=== PATIENT | female | born 1955 | race Caucasian/White ===

== ENCOUNTER 2017-08-21 21:16 | Inpatient (IN) | payer BC ==
[2017-08-21] MEDS ORDERED: Ondansetron INJ* 2 MG/ML VIAL IV ONE (22:30)
[2017-08-21] MEDS ORDERED: Morphine INJ* 4 MG/ML 1 ML CARPUJECT IV ONE (22:30)
--- NOTE | 2017-08-21 22:49 | ED ---
Lower Extremity - HPI Summary HPI Summary: 62F presents with left knee pain and right ankle pain. She states that she slipped and twisted her right ankle and felt a pop and that her left knee gave out. She states she then fell down a couple stairs. She did hit her head. She denies any LOC. She is not on blood thinners. She denies any chest pain or SOB. She denies any previous fracture to the area. she states pain is 8/10. She has not taken anything for pain. She denies any abdominal pain. She denies any hip pain. She denies any upper extremity pain. The pain is worst with movement. She works in [employer]. PMH of HTN, diabeties, and hyperlipidemia. - History of Current Complaint Chief Complaint: EDExtremityLower Stated Complaint: FALL Time Seen by Provider: 08/21/17 21:56 Pain Intensity: 9 - Allergies/Home Medications Allergies/Adverse Reactions: Allergies Allergy/AdvReac Type Severity Reaction Status Date / Time No Known Allergies Allergy Verified 01/11/13 19:26 PMH/Surg Hx/FS Hx/Imm Hx Endocrine/Hematology History: Reports: Hx Diabetes - type 2 metformin Denies: Hx Thyroid Disease Cardiovascular History: Reports: Hx Hypertension - lisinopril Respiratory History: Denies: Hx Asthma, Hx Chronic Obstructive Pulmonary Disease (COPD) GI History: Denies: Hx Ulcer Musculoskeletal History: Denies: Hx Osteoporosis - Cancer History Hx Chemotherapy: No Hx Radiation Therapy: No - Surgical History Surgery Procedure, Year, and Place: csections x2, carpal tunnel x2 Infectious Disease History: No Infectious Disease History: Denies: Hx Hepatitis, Hx Human Immunodeficiency Virus (HIV), Traveled Outside the in Last 30 Days - Social History Alcohol Use: None Substance Use Type: Reports: None Smoking Status (MU): Never Smoked Tobacco Review of Systems Negative: Fever Negative: Chest Pain Negative: Shortness Of Breath Positive: Myalgia - left knee and right ankle All Other Systems Reviewed And Are Negative: Yes Physical Exam Triage Information Reviewed: Yes Vital Signs On Initial Exam: Initial Vitals Temp Pulse Resp BP Pulse Ox 97.9 F 92 20 157/64 100 08/21/17 21:22 08/21/17 21:22 08/21/17 21:22 08/21/17 21:22 08/21/17 21:22 Vital Signs Reviewed: Yes Appearance: Positive: Well-Appearing, Pain Distress Skin: Positive: Warm, Dry Head/Face: Positive: Normal Head/Face Inspection Eyes: Positive: Normal, EOMI, MARCY, Conjunctiva Clear ENT: Positive: Normal ENT inspection, Pharynx normal, TMs normal Respiratory/Lung Sounds: Positive: Clear to Auscultation, Breath Sounds Present Cardiovascular: Positive: Normal, RRR Abdomen Description: Positive: Nontender, Soft Bowel Sounds: Positive: Present Musculoskeletal: Positive: Strength/ROM Intact - right ankle with pain, Limited @ - left leg, Other - good pulses, capillary refill<2 secs, sensation grossly intact, tenderness over left femur distal and lateral malleolus of right ankle Neurological: Positive: Sensory/Motor Intact, Alert, Oriented to Person Place, Time, CN Intact II-III Psychiatric: Positive: Normal - [place] Coma Scale Best Eye Response: 4 - Spontaneous Best Motor Response: 6 - Obeys Commands Best Verbal Response: 5 - Oriented Coma Scale Total: 15 Procedures - Splinting Location: right ankle Hand-Made Type: orthoglass Splint: sugar-tong Pre-Proc Neuro Vasc Exam: normal Post-Proc Neuro Vasc Exam: normal Diagnostics - Vital Signs Vital Signs Temp Pulse Resp BP Pulse Ox 08/21/17 21:30 95 181/74 99 08/21/17 21:25 90 100 08/21/17 21:23 157/64 08/21/17 21:22 97.9 F 92 20 157/64 100 - Laboratory Result Diagrams: 08/21/17 22:35 08/21/17 22:35 Lab Statement: Any lab studies that have been ordered have been reviewed, and results considered in the medical decision making process. - Radiology left leg Xray Interpretation: Positive (See Comments) - fracture of left distal femur Radiology Interpretation Completed By: ED Physician right ankle Xray Interpretation: Positive (See Comments) - right fibula fracture Radiology Interpretation Completed By: ED Physician chest Xray Interpretation: No Acute Changes Radiology Interpretation Completed By: ED Physician - EKG No standard instances Cardiac Rate: NL EKG Rhythm: Sinus Rhythm EKG Interpretation: sinus rhythm Lower Extremity Course/Dx - Course Course Of Treatment: 62F presents with left knee pain and right ankle pain. She states that she slipped and twisted her right ankle and felt a pop and that her left knee gave out. She states she then fell down a couple stairs. She did hit her head. She denies any LOC. She is not on blood thinners. She denies any chest pain or SOB. She denies any previous fracture to the area. she states pain is 8/10. She has not taken anything for pain. She denies any abdominal pain. She denies any hip pain. She denies any upper extremity pain. The pain is worst with movement. She works in [employer]. PMH of HTN, diabeties, and hyperlipidemia. neurovascular intact, tenderness over left femur and right lateral aspect of ankle. xray read by me as spiral fracture of left femur and right fibula fracture. discussed with dr shah and states has if ortho can admit. dr washington states that would prefer hospitalist to admit. will place in knee immbolizer and split right ankle. placed right ankle in sugar tong. dr washington admitted patient. - Diagnoses Differential Diagnosis/HQI/PQRI: Positive: Fracture (Closed), Sprain, Strain Provider Diagnoses: Fall, Head injury, Femur fracture, left, Right fibular fracture Discharge - Discharge Plan Condition: Stable Disposition: ADMITTED TO [facility]
[2017-08-21 22:54] LABS: ABS Basophils 0.1 10^3/ul (0-0.2); ABS Eosinophils 0.1 10^3/ul (0-0.6); ABS Lymphocytes 2.2 10^3/ul (1.0-4.8); ABS Neutrophils 11.3 10^3/ul (1.5-7.7); ABS Nucleated RBC 0 10^3/ul; Eosinophil % 0.9 % (0-6); Hematocrit 37 % (35-47); Hemoglobin 12.3 g/dl (12.0-16.0); Lymphocyte % 14.9 % (25-47); Mean Corpuscular HGB Conc 33 g/dl (31-36); Mean Corpuscular Hemoglobin 29 pg (27-31); Mean Corpuscular Volume 88 fL (80-97); Mean Platelet Volume 9 um3 (7.4-10.4); Nucleated Red Blood Cells % 0; Platelet Count 254 10^3/ul (150-450); Red Blood Count 4.21 10^6/ul (4.0-5.4); Red Cell Distribution Width 13 % (10.5-15); White Blood Count 14.7 10^3/ul (3.5-10.8)
[2017-08-21 23:11] LABS: EGFR Non-African American 63.7 (>60)
[2017-08-21 23:21] LABS: INR 0.85 (0.77-1.02)
[2017-08-22] MEDS ORDERED: Morphine INJ* 4 MG/ML 1 ML CARPUJECT IV ONE (00:33)
[2017-08-22 01:33] LABS: Urine Appearance Clear; Urine Blood 1+ (Negative); Urine Color Straw; Urine Ketones Negative (Negative); Urine Protein 1+(30 mg/dL) (Negative); Urine Specific Gravity 1.009 (1.010-1.030); Urine Urobilinogen Negative (Negative)
[2017-08-22] MEDS: NS 0.9% 1000 ML* 1,000 ML IV SCH (02:54)
[2017-08-22] MEDS: Morphine INJ* 2 MG/ML 1 ML SYRINGE (TWO MG - NEW SYRINGE VERSION) IV PRN ×8 (03:01→22:32)
[2017-08-22] MEDS ORDERED: Cyclobenzaprine TAB* 10 MG PO PRN (06:42)
--- NOTE | 2017-08-22 07:10 | RAD ---
INDICATION: Right ankle injury. TECHNIQUE: 3 views of the right ankle were obtained. FINDINGS: There is anterolateral soft tissue swelling. There is a transverse nondisplaced fracture through the distal tip of the fibula. No other fractures are seen. Joint spaces appear maintained. IMPRESSION: NONDISPLACED FRACTURE OF THE DISTAL FIBULA.
--- NOTE | 2017-08-22 07:13 | RAD ---
INDICATION: Left knee trauma. TECHNIQUE: 4 views of the left knee were obtained. FINDINGS: There is an oblique fracture of the distal diaphysis of the femur which is partially visualized on the study. The distal fragment is displaced one half shaft diameter posterior relative the proximal fragment and the fracture fragments are overriding. No additional fracture or joint effusion is seen. IMPRESSION: OBLIQUE DISPLACED FRACTURE OF THE DISTAL FEMUR.
--- NOTE | 2017-08-22 07:15 | RAD ---
INDICATION: Left lower leg injury. TECHNIQUE: 2 views of the left lower leg were obtained. FINDINGS: The tip of a distal fracture of the femur is visualized. No additional fracture is seen. IMPRESSION: FRACTURE OF THE DISTAL FEMUR, NO ADDITIONAL FRACTURE IS SEEN.
--- NOTE | 2017-08-22 07:17 | RAD ---
INDICATION: Right lower leg injury. TECHNIQUE: 2 views of the right lower leg were obtained. FINDINGS: Again note is made of a nondisplaced fracture of the distal tip of the fibula. No additional fracture is seen. IMPRESSION: NONDISPLACED FRACTURE OF THE DISTAL TIP OF THE FIBULA, NO ADDITIONAL FRACTURE IS SEEN.
--- NOTE | 2017-08-22 07:19 | RAD ---
INDICATION: Left femur injury. TECHNIQUE: 2 views of the left femur were obtained. FINDINGS: There is an oblique fracture of the distal diaphysis of the femur. The fracture fragments are overriding. The distal fragment is displaced one half shaft diameter posterior relative the proximal fragment and there is medial angulation of the distal fragment relative the proximal fragment. IMPRESSION: OBLIQUE, DISPLACED AND ANGULATED FRACTURE OF THE DISTAL FEMUR.
[2017-08-22] MEDS ORDERED: Polyethylene Glycol 3350* 17 GM PACKET PO PRN (07:27)
[2017-08-22] MEDS ORDERED: oxyCODONE/Acetamin 5/325 MG* TAB PO PRN (07:27)
[2017-08-22] MEDS ORDERED: Bisacodyl SUPP* 10 MG SUPP PR PRN (07:27)
[2017-08-22] MEDS ORDERED: diPHENhydraMINE IV* 50 MG/ML 1 ml VIAL (BENADRYL) IV PRN (07:27)
[2017-08-22] MEDS ORDERED: Magnesium Hydroxide LIQ* 30 ML UDC PO PRN (07:27)
[2017-08-22] MEDS ORDERED: Ondansetron TAB* 4 MG PO PRN (07:27)
--- NOTE | 2017-08-22 07:33 | RAD ---
INDICATION: Head injury. COMPARISON: Comparison is made with a prior MRI of the brain from November 10, 2011. TECHNIQUE: Contiguous axial sections of the brain were obtained from the skull base to the vertex without contrast. FINDINGS: The ventricles, cisterns and sulci are within normal limits. No significant focal abnormality or mass effect is seen. There is no evidence for hemorrhage. There is focal soft tissue swelling and hematoma in the scalp adjacent to the left occipital bone measuring 4.4 x 0.8 cm in size. No fracture is seen. There is mucosal thickening or mucous retention cyst within the inferior portion of the left maxillary sinus. The paranasal sinuses and mastoid air cells otherwise appear clear. IMPRESSION: NO EVIDENCE FOR ACUTE INTRACRANIAL ABNORMALITY.
--- NOTE | 2017-08-22 07:40 | RAD ---
INDICATION: Femur fracture. COMPARISON: Comparison is made with prior chest x-ray study from October 17, 2011. TECHNIQUE: A portable view of the chest was obtained. FINDINGS: Cardiac and mediastinal contours appear to be within normal limits. The lungs are clear. No pleural effusion is seen. IMPRESSION: NO EVIDENCE FOR ACUTE DISEASE.
[2017-08-22 08:16] LABS: ABS Basophils 0.1 10^3/ul (0-0.2); ABS Eosinophils 0.1 10^3/ul (0-0.6); ABS Lymphocytes 3.1 10^3/ul (1.0-4.8); ABS Monocytes 0.7 10^3/ul (0-0.8); ABS Neutrophils 6.1 10^3/ul (1.5-7.7); ABS Nucleated RBC 0 10^3/ul; Eosinophil % 0.7 % (0-6); Hematocrit 33 % (35-47); Hemoglobin 11.3 g/dl (12.0-16.0); Mean Corpuscular HGB Conc 34 g/dl (31-36); Mean Corpuscular Hemoglobin 30 pg (27-31); Mean Corpuscular Volume 87 fL (80-97); Mean Platelet Volume 9 um3 (7.4-10.4); Nucleated Red Blood Cells % 0; Platelet Count 241 10^3/ul (150-450); Red Cell Distribution Width 13 % (10.5-15); White Blood Count 10.1 10^3/ul (3.5-10.8)
[2017-08-22] MEDS ORDERED: Dextrose 50% Syringe 50 ML* 25 GM/50 ML SYRINGE IV PUSH PRN (08:20)
--- NOTE | 2017-08-22 08:21 | CONSULT ---
Subjective Date of Service: 08/22/17 Interval History: Patient states that her R ankle "gave way" and she fell down a flight of stairs. She could not get up due to pain and the ambulance brought her to the ED. NO LOC, lightheadedness, palpitations, SOB, or chest pain. No prior falls. Family History: Findings - Father had IN. Also fam hx of DM, ca pancreas Social History: Findings - Quit smoking about 20 yrs ago. No alcohol abuse. 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 Lives alone, single. Daughter Sandra is her SDM. Past Medical History: Findings - [facility], x 2. 3 children. Review of Systems - Measurements Intake and Output: Intake and Output Last 24 Hours 08/20/17 08/21/17 08/22/17 08/23/17 06:59 06:59 06:59 06:59 Intake Total 0 Output Total 450 Balance -450 Weight 190 lb Intake: Oral 0 Output: More[place] 450 - Review of Systems Constitutional Symptoms: Negative: Weight Gain, Weight Loss, Weakness, Fatigue, Fever, Night Sweats, Unexplained Falls, Other Dermatology: Positive: Normal HEENT: Positive: Normal Eyes: Positive: Normal Thyroid: Positive: Normal Pulmonary: Positive: Normal Cardiology: Positive: Normal Gastroenterology: Positive: Normal Genital - Urinary: Positive: Normal Musculoskeletal: Negative: Joint Pain, Joint Stiffness, Arthritis, Osteoporosis, Low Back Pain , Sciatica, Joint Deformities, Kyphoscoliosis, Other Endocrinology: Positive: Obesity, Diabetes Mellitus Hematologic/Lymphatic: Negative: Anemia, Easy Brusing, Hx Leukemia, Hx Lymphoma, Use of Anticoagulant, Use of Antiplatelet Drugs, Other Neurology: Positive: Normal Psychiatry: Positive: Normal Allergic/Immunologic: Negative: Hx Anaphylaxis, Hx Angioedema, Hx Environmental, Hx Seasonal, Athsma, Hx HIV, Immunocompromise, Swollen Glands LymphNodes, Other Objective Active Medications: Bisacodyl (Dulcolax Supp*) 10 mg WA DAILY PRN PRN Reason: constipation Cyclobenzaprine HCl (Flexeril Tab*) 10 mg PO TID PRN PRN Reason: SPASMS - MUSCLE Diphenhydramine HCl (Benadryl Iv*) 12.5 mg IV Q6H PRN PRN Reason: PRURITIS Docusate Sodium (Colace Cap*) 100 mg PO BID JOSEPH Gabapentin (Neurontin Cap(*)) 600 mg PO BID JOSEPH Sodium Chloride (Ns 0.9% 1000 Ml*) 1,000 mls @ 50 mls/hr IV PER RATE JOSEPH Last Admin: 08/22/17 02:54 Dose: 50 mls/hr Lactated Ringer's (Lactated Ringers 1000 Ml Bag*) 1,000 mls @ 100 mls/hr IV PER RATE JOSEPH Lactulose (Lactulose*) 30 ml PO Q6H PRN PRN Reason: constipation Lisinopril (Prinivil Tab*) 20 mg PO DAILY [facility] Magnesium Hydroxide (Milk Of Magnesia Liq*) 30 ml PO BID JOSEPH Magnesium Hydroxide (Milk Of Magnesia Liq*) 30 ml PO Q6H PRN PRN Reason: constipation Metformin HCl (Glucophage*) 500 mg PO DAILY [facility] Morphine Sulfate (Morphine Inj (Syringe)*) 2 mg IV Q2H PRN PRN Reason: PAIN Last Admin: 08/22/17 06:27 Dose: 2 mg Ondansetron HCl (Zofran Tab*) 4 mg PO Q6H PRN PRN Reason: NAUSEA Oxycodone HCl (Roxycodone Tab*) 10 mg PO Q4H PRN PRN Reason: SEVERE PAIN Oxycodone/Acetaminophen (Percocet 5/325 Tab*) 2 tab PO Q4H PRN PRN Reason: PAIN Oxycodone/Acetaminophen (Percocet 5/325 Tab*) 2 tab PO Q4H PRN PRN Reason: PAIN Polyethylene Glycol/Electrolytes (Miralax*) 17 gm PO DAILY PRN PRN Reason: Constipation Vital Signs - 8 hr 08/22/17 08/22/17 08/22/17 02:36 03:01 03:10 Temperature 98.3 F Pulse Rate 89 Respiratory 16 16 16 Rate Blood Pressure 160/61 (mmHg) O2 Sat by Pulse 96 Oximetry 08/22/17 08/22/17 04:00 06:27 Temperature Pulse Rate Respiratory 16 16 Rate Blood Pressure (mmHg) O2 Sat by Pulse Oximetry Oxygen Devices in Use Now: None Appearance: Alert, supine in bed. In good spirits. Looks comfortable 90 minutes after IV morphine Eyes: No Scleral Icterus Neck: NL Appearance and Movements; NL JVP, No Thyroid Enlargement, Masses Respiratory: Symmetrical Chest Expansion and Respiratory Effort, Clear to Auscultation, Clear to Percussion Cardiovascular: No Edema, - - 2-3/6 systolic murmur RSB Extremities: No Edema, No Clubbing, Cyanosis, - Skin: No Rash or Ulcers, No Nodules or Sclerosis, - Neurological: Alert and Oriented x 3, NL Sensation Result Diagrams: 08/22/17 08:04 08/22/17 08:04 Assessment/Plan - Billing Plan By Medical Problem: 1. DM: Lispro by SS 2. Elevated lactate: could be related to metformin, or tourniquet on too long. Repeat pending. 3. Leukocytosis: likely due to pain and stress of emergency events. Repeat pending. 4. Heart murmur: Pt states she has had this "all my life". Echo ordered. 5. Hypertension: continue lisinopril. VTE PPX: per Dr. Wolf
[2017-08-22 08:25] LABS: EGFR Non-African American 92.7 (>60)
[2017-08-22] MEDS: Magnesium Hydroxide LIQ* 30 ML UDC PO SCH ×3 (09:17→22:35)
[2017-08-22] MEDS: metFORMIN* 500 MG TAB PO SCH ×2 (09:17→10:29)
[2017-08-22] MEDS: Docusate CAP* 100 MG PO SCH ×3 (09:17→22:34)
[2017-08-22] MEDS: Gabapentin CAP(*) 300 MG PO SCH ×2 (09:17→22:34)
--- NOTE | 2017-08-22 09:31 | RAD ---
Indication: Preop fracture evaluation CT of the left femur was obtained in the axial plane. Sagittal and coronal reconstructed images were obtained. There is a oblique spiral fracture of the distal diaphysis of the femur. There is lateral angulation of the fracture apex. Old slight overriding of the fracture fragment is noted. There is a hematoma surrounding the quadriceps muscle. The proximal femur shows no evidence of fracture. Minimal comminution is noted. There is slight posterior displacement of the distal fracture fragment approximately one half shafts width. There is overriding of the fracture fragments. IMPRESSION: Minimally comminuted fracture of the distal diaphysis of the femur with lateral angulation. There is posterior displacement of the distal fracture fragment approximately one half shafts width.
--- NOTE | 2017-08-22 10:06 | HP ---
ADMISSION HISTORY AND PHYSICAL: DATE OF ADMISSION: 08/22/17 ATTENDING SURGEON: Aida Wolf MD CONSULT: Hospitalist group for medical co-management and preoperative optimization. CHIEF COMPLAINT: Left thigh pain, right ankle pain. HISTORY OF PRESENT ILLNESS: Ms. Laws is a 62-year-old female who fell going down her daughter's apartment steps late in the evening on 08/21/17. She turned her right ankle and felt a snap in her left thigh. She had immediate 10/10 pain in the left thigh and right ankle and was unable to stand or bear weight. She was brought to [facility] by ambulance. She denied any loss of consciousness or head trauma. She was found to have a right lateral malleolus fracture, which was an avulsion fracture distally as well as a displaced comminuted closed left distal femoral fracture. She has significant past medical history of diabetes, hypertension, hypercholesterolemia, and morbid obesity. I am admitting with the intention of fixing the femur fracture operatively. She will need appropriate preoperative medical clearance. PAST MEDICAL HISTORY: 1. Hypertension. 2. Diabetes. 3. Hypercholesterolemia. 4. Morbid obesity. PAST SURGICAL HISTORY: 1. Bilateral carpal tunnel release. 2. x2. CURRENT MEDICATIONS: 1. Lisinopril, unspecified dose. 2. Metformin, unspecified dose. We will obtain the home medication dosages. ALLERGIES: No known drug allergies. No known latex allergy. FAMILY HISTORY: Maternal aunt, paternal cancer. SOCIAL HISTORY: The patient lives alone. She has a daughter in the area. She is normally an independent ambulator and works at [employer]. No tobacco, alcohol, or recreational drugs. REVIEW OF SYSTEMS: Fourteen systems were reviewed with the patient today. Positive for recent fall, left thigh pain, right ankle pain. Negative for fevers, chills, chest pain, shortness of breath, nausea, vomiting, headache or dizziness. Otherwise the patient reports review of systems is negative, or not relevant. PHYSICAL EXAMINATION GENERAL: The patient is an overweight female, in no apparent distress, alert and oriented x3, pleasant mood and appropriate affect. Gait is not assessed. VITAL SIGNS: Temperature 98.3, pulse of 89, blood pressure 160/61, respiratory rate 16. HEENT: Atraumatic, normocephalic. Pupils are equal and reactive to light. Mucous membranes moist. NECK: Trachea midline. Neck supple. No palpable lymph nodes. LUNGS: Clear to auscultation in all lung owusu. No wheezes, rubs, or rhonchi. HEART: S1 and S2. No obvious irregular rhythm or murmur. ABDOMEN: Rounded, soft, nontender, and nondistended. Bowel sounds in 4 quadrants. BILATERAL UPPER EXTREMITIES: The patient's skin is intact. No abrasions or open wounds. 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 Full sensation to light touch in all nerve distributions and 2+ palpable radial pulses. Right lower extremity has a splint on the right lower extremity. She can flex and extend her toes with intact sensation to light touch and less than 3 capillary refill. Left lower extremity, her thigh is swollen, but compressible. She is in a knee immobilizer. She has a minimal superficial scrape over the anterior patella. She demonstrates dorsiflexion and plantar flexion. 2+ palpable DP pulse. Full sensation to light touch in all nerve distributions. LABORATORY DATA: Laboratory values show white blood cells elevated at 14.7, hematocrit 37, platelets 254. Coags; INR 0.85. Chemistries: Sodium 135, potassium 4.1, chloride 101, glucose 316 and lactic acid 2.1. Urine shows a mild amount of blood and squamous cells, but no leukocyte esterase or bacteria. There is some glucose in the urine as well. Multiple views of the ankle are reviewed which show a displaced avulsion fracture of the lateral malleolus on the right. X-rays of the knee on the left as well as left femur x-ray show a distal femoral fracture which is long, oblique and comminuted. Brain CT is negative for any abnormality. Chest x-ray has no formal report yet. ASSESSMENT AND PLAN: Ms. Laws is a 62-year-old female status post mechanical fall with a displaced comminuted closed left distal femoral fracture and closed right lateral malleolus avulsion fracture. For now she will be on bed rest and n.p.o. She has slightly elevated lactic acid and leukocytosis at this point. I will order blood cultures, although the patient denies being recently ill. She was given IV fluids at this time. She has some p.r.n. analgesia available. We will order insulin sliding scale for now. We will be awaiting hospitalist consult for medical optimization and ask them to address both her uncontrolled diabetes at this point and uncontrolled hypertension. We are awaiting clearance for this patient. The patient and I discussed operative and nonoperative treatment options for the left femur. She would like to proceed with surgery. Risks and benefits of the surgery were discussed and she would like to proceed. We will plan an open reduction internal fixation of the left distal femur fracture with a plate and screws. For now, the patient will be n.p.o. We will plan operative fixation of the fracture this afternoon if she is cleared for surgery by medical team and if we have the appropriate hardware in time. Otherwise, we will plan for 08/23/17. [id number]/CPS #: [id number] MTDD
[2017-08-22] MEDS: Lisinopril TAB* 10 MG PO SCH (10:29)
[2017-08-22] MEDS: Insulin LISPRO* 1 UNITS UNIT SUBCUT SCH ×3 (13:37→22:34)
[2017-08-22] MEDS ORDERED: Scopolamine 1.5 mg* PATCH TRANSDERM PRN (15:48)
--- NOTE | 2017-08-22 15:59 | ECHO ---
Patient: TORY JAIN [facility] Rec#: [id number] : 1955 Date: 08/22/2017 Age: 62y Height: 152.4 cm / 60.0 in Weight: 86.18 kg / 189.9 lbs Sex: F BSA: 1.83 Room#: [facility] Admit Date#: 08/22/2017 Type: Inpatient Referring: Calos Leo MD Reading: Herminio Rich MD [employer] Worker: Kasia Jara RDCS CC: Benjy Norman MD Transthoracic Echocardiogram Indication: Heart murmur, pre-op BP: 160/61 HR: 77 Rhythm: NSR Findings History: Former smoker, HTN, HLD, DM. Technical Comments: The study quality is fair. The study was technically limited due to the patient's inability to lay in the left lateral decubitus position. Completed at 1330. Left Ventricle: The left ventricular chamber size is normal. Moderate concentric left ventricular hypertrophy is observed. Global left ventricular wall motion and contractility are within normal limits. There is normal left ventricular systolic function. The estimated ejection fraction is 60-65%. There is no consistent Doppler evidence of clinically significant diastolic dysfunction. Left Atrium: The left atrium is moderately dilated. Right Ventricle: Moderator Band present. The right ventricular cavity size is normal. The right ventricular global systolic function is normal. Right Atrium: The right atrium is mildly dilated. There is evidence of an atrial septal aneurysm. Aortic Valve: The aortic valve structure is not well visualized. Mild aortic leaflet calcification is visualized. Systolic excursion of the aortic valve cusps is reduced. There is no evidence of aortic regurgitation. There is mild aortic stenosis. The mean gradient of the aortic valve is 11.1 mmHg. The peak instantaneous gradient of the aortic valve is 27.48 mmHg. The aortic valve area, by peak velocities, is calculated at 1.6 cm2. The aortic valve area, by VTI's, is calculated at 1.85 cm2. Mitral Valve: The mitral valve leaflets are mildly thickened. There is a trace of mitral regurgitation. There is no evidence of mitral stenosis. Tricuspid Valve: The tricuspid valve leaflets are normal. There is trace tricuspid regurgitation. The right ventricular systolic pressure is estimated at 19 mmHg. No pulmonary hypertension is noted. There is no tricuspid stenosis. Pulmonic Valve: The pulmonic valve appears normal. There is no evidence of pulmonic regurgitation. There is no pulmonic stenosis. Pericardium: There is no significant pericardial effusion. A pericardial fat pad is visualized. Aorta: There is no dilatation of the ascending aorta. There is no dilatation of the aortic arch. The aortic root is normal in size. Pulmonary Artery: The main pulmonary artery is not well visualized. Venous: The inferior vena cava appears normal in size. There is a greater than 50% respiratory change in the inferior vena cava dimension. Summary: There was not any prior study for comparison. Conclusions Global left ventricular wall motion and contractility are within normal limits. There is normal left ventricular systolic function. The estimated ejection fraction is 60-65%. The right ventricular global systolic function is normal. Systolic excursion of the aortic valve cusps is reduced. There is mild aortic stenosis. The mean gradient of the aortic valve is 11.1 mmHg. There is a trace of mitral regurgitation. There is trace tricuspid regurgitation. No pulmonary hypertension is noted. There is no significant pericardial effusion. Measurements Name Value Normal Range RVIDd (AP) 2D 2.9 cm (0.9 - 2.6) RVDdMajor (2D) 3.6 cm (2.2 - 4.4) RAd ISD 4CH 5.3 cm (3.4 - 4.9) RA (A4C)W 3.4 cm (2.9 - 4.6) IVSd (2D) 1.3 cm (0.6 - 1) LVPWd (2D) 1.3 cm (0.6 - 1) LVIDd (2D) 4 cm (3.6 - 5.4) LVIDs (2D) 2.2 cm - LV FS (2D) 45 % (25 - 45) Aortic Annulus 2 cm (1.4 - 2.6) Ao root diameter (2D) 2.9 cm (2.1 - 3.5) Ascending Ao 2.9 cm (2.1 - 3.4) Aortic arch 2 cm (1.8 - 3.4) LA dimension (AP) 2D 3.7 cm (2.3 - 3.8) LAd ISD 4CH 6.2 cm (2.9 - 5.3) LA ISD 4CH W 4.6 cm (2.5 - 4.5) Name Value Normal Range LA ESV SP 4CH (A/L) 67 ml - LA ESV SP 2CH (A/L) 76 ml - LA ESV BP (A/L) 79 ml - LA ESV BP (A/L) index 43 ml/m2 - LA ESV SP 4CH (MOD) 62 ml - LA ESV SP 2CH (MOD) 71 ml - Name Value Normal Range MV E-wave Vmax 1.18 m/sec - MV deceleration time 189.06 msec - MV A-wave Vmax 1.01 m/sec - MV E:A ratio 1.16 ratio - LV septal e' Vmax 0.08 m/sec - LV lateral e' Vmax 0.1 m/sec - LV E:e' septal ratio 14.75 ratio - LV E:e' lateral ratio 11.8 ratio - Name Value Normal Range AV Vmax 2.6 m/sec - AV VTI 49.9 cm - AV peak gradient 27.48 mmHg - AV mean gradient 11.1 mmHg - LVOT diameter 2 cm - LVOT Vmax 1.33 m/sec - LVOT VTI 29.4 cm - LVOT peak gradient 7.05 mmHg - LVOT mean gradient 4.05 mmHg - DOI (VTI) 0.59 ratio - YOKO (continuity Vmax) 1.6 cm2 - YOKO (continuity VTI) 1.85 cm2 - MCKENNA Vmax 1.11 m/sec - Name Value Normal Range TR Vmax 2 m/sec - TR peak gradient 16 mmHg - RAP 3 mmHg - RVSP 19 mmHg - IVC diameter 1.5 cm - Name Value Normal Range PV Vmax 0.97 m/sec - PV peak gradient 3.76 mmHg -
[2017-08-22] MEDS: Ondansetron INJ* 2 MG/ML VIAL IV SCH ×2 (16:04→21:22)
[2017-08-23] MEDS: Ondansetron INJ* 2 MG/ML VIAL IV SCH ×5 (00:44→20:09)
[2017-08-23] MEDS: NS 0.9% 1000 ML* 1,000 ML IV SCH (01:58)
[2017-08-23] MEDS: Morphine INJ* 2 MG/ML 1 ML SYRINGE (TWO MG - NEW SYRINGE VERSION) IV PRN ×2 (04:21→09:22)
[2017-08-23 06:45] LABS: Hematocrit 31 % (35-47); Hemoglobin 10.5 g/dl (12.0-16.0)
[2017-08-23 07:01] LABS: EGFR Non-African American 101.6 (>60)
--- NOTE | 2017-08-23 07:45 | PN ---
Progress Note - Progress Note Date of Service: 08/23/17 SOAP: Subjective: Pt. is alert and eager for surgery. Objective: RLE - splint, toes +flex/ext LLE - thigh swollen but soft, calf soft, 2+dp pulse, +df/pf Vital Signs: Temp Pulse Resp BP Pulse Ox 98.1 F 70 18 146/54 99 08/23/17 04:14 08/23/17 04:14 08/23/17 04:21 08/23/17 04:14 08/23/17 04:14 Laboratory Results - last 24 hr 08/22/17 08/22/17 08/22/17 08:04 08:04 08:04 WBC 10.1 RBC 3.80 L Hgb 11.3 L Hct 33 L MCV 87 MCH 30 MCHC 34 RDW 13 Plt Count 241 MPV 9 Neut % (Auto) 60.3 Lymph % (Auto) 31.0 [place] % (Auto) 7.3 Eos % (Auto) 0.7 Baso % (Auto) 0.7 Absolute Neuts (auto) 6.1 Absolute Lymphs (auto) 3.1 Absolute Monos (auto) 0.7 Absolute Eos (auto) 0.1 Absolute Basos (auto) 0.1 Absolute Nucleated RBC 0 Nucleated RBC % 0 Sodium 135 Potassium 4.0 Chloride 103 Carbon Dioxide 25 Anion Gap 7 BUN 14 Creatinine 0.65 Est GFR ( Amer) 119.2 Est GFR (Non-Af Amer) 92.7 BUN/Creatinine Ratio 21.5 H Glucose 247 H POC Glucose (mg/dL) Lactic Acid 1.7 Calcium 8.7 08/22/17 08/22/17 08/22/17 13:30 17:03 22:24 WBC RBC Hgb Hct MCV MCH MCHC RDW Plt Count MPV Neut % (Auto) Lymph % (Auto) [place] % (Auto) Eos % (Auto) Baso % (Auto) Absolute Neuts (auto) Absolute Lymphs (auto) Absolute Monos (auto) Absolute Eos (auto) Absolute Basos (auto) Absolute Nucleated RBC Nucleated RBC % Sodium Potassium Chloride Carbon Dioxide Anion Gap BUN Creatinine Est GFR ( Amer) Est GFR (Non-Af Amer) BUN/Creatinine Ratio Glucose POC Glucose (mg/dL) 315 H 226 H 229 H Lactic Acid Calcium 08/23/17 08/23/17 06:35 06:35 WBC RBC Hgb 10.5 L Hct 31 L MCV MCH MCHC RDW Plt Count MPV Neut % (Auto) Lymph % (Auto) [place] % (Auto) Eos % (Auto) Baso % (Auto) Absolute Neuts (auto) Absolute Lymphs (auto) Absolute Monos (auto) Absolute Eos (auto) Absolute Basos (auto) Absolute Nucleated RBC Nucleated RBC % Sodium 137 Potassium 3.8 Chloride 105 Carbon Dioxide 27 Anion Gap 5 BUN 10 Creatinine 0.60 Est GFR ( Amer) 130.7 Est GFR (Non-Af Amer) 101.6 BUN/Creatinine Ratio 16.7 Glucose 153 H POC Glucose (mg/dL) Lactic Acid Calcium 8.6 Assessment: 62 yo F s/p fall with R lat mal avulsion fx and L femur fx Plan: npo for orif L femur today bedrest prn analgesia medically optimized
[2017-08-23] MEDS ORDERED: NS 0.9% 1000 ML* 1,000 ML IV SCH (07:47)
[2017-08-23] MEDS: Magnesium Hydroxide LIQ* 30 ML UDC PO SCH ×2 (10:15→22:15)
[2017-08-23] MEDS: Docusate CAP* 100 MG PO SCH ×2 (10:15→22:12)
[2017-08-23] MEDS: Gabapentin CAP(*) 300 MG PO SCH ×2 (10:15→22:15)
[2017-08-23] MEDS: metFORMIN* 500 MG TAB PO SCH (10:15)
[2017-08-23] MEDS: Lisinopril TAB* 10 MG PO SCH (10:15)
[2017-08-23] MEDS: Insulin LISPRO* 1 UNITS UNIT SUBCUT SCH ×4 (10:41→21:00)
--- NOTE | 2017-08-23 11:38 | PN ---
Subjective Date of Service: 08/23/17 Interval History: Pain control adequate. No chest pain, cough, SOB. Family History: Findings - Father had ND. Also fam hx of DM, ca pancreas Social History: Findings - Quit smoking about 20 yrs ago. No alcohol abuse. 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 Lives alone, single. Daughter Sandra is her SDM. Past Medical History: Findings - [facility], x 2. 3 children. Objective Active Medications: Bisacodyl (Dulcolax Supp*) 10 mg KS DAILY PRN PRN Reason: constipation Cyclobenzaprine HCl (Flexeril Tab*) 10 mg PO TID PRN PRN Reason: SPASMS - MUSCLE Dextrose (D50w Syringe 50 Ml*) 12.5 gm IV PUSH .FOR FS < 60 - SS PRN PRN Reason: FS < 60 Diphenhydramine HCl (Benadryl Iv*) 12.5 mg IV Q6H PRN PRN Reason: PRURITIS Docusate Sodium (Colace Cap*) 100 mg PO BID [facility] Last Admin: 08/23/17 10:15 Dose: Not Given Gabapentin (Neurontin Cap(*)) 600 mg PO BID [facility] Last Admin: 08/23/17 10:15 Dose: Not Given Lactated Ringer's (Lactated Ringers 1000 Ml Bag*) 1,000 mls @ 100 mls/hr IV PER RATE [facility] Sodium Chloride (Ns 0.9% 1000 Ml*) 1,000 mls @ 100 mls/hr IV PER RATE [facility] Insulin Human Lispro (Humalog*) 0 units SUBCUT ACHS [facility] PRN Reason: Protocol Last Admin: 08/23/17 10:41 Dose: 3 units Lactulose (Lactulose*) 30 ml PO Q6H PRN PRN Reason: constipation Lisinopril (Prinivil Tab*) 20 mg PO DAILY [facility] Last Admin: 08/23/17 10:15 Dose: Not Given Magnesium Hydroxide (Milk Of Magnesia Liq*) 30 ml PO BID [facility] Last Admin: 08/23/17 10:15 Dose: Not Given Magnesium Hydroxide (Milk Of Magnesia Liq*) 30 ml PO Q6H PRN PRN Reason: constipation Metformin HCl (Glucophage*) 500 mg PO DAILY [facility] Last Admin: 08/23/17 10:15 Dose: Not Given Morphine Sulfate (Morphine Inj (Syringe)*) 2 mg IV Q2H PRN PRN Reason: PAIN Last Admin: 08/23/17 09:22 Dose: 2 mg Ondansetron HCl (Zofran Tab*) 4 mg PO Q6H PRN PRN Reason: NAUSEA Last Admin: 08/22/17 12:18 Dose: 4 mg Ondansetron HCl (Zofran Inj*) 4 mg IV Q4H [facility] Last Admin: 08/23/17 09:22 Dose: 4 mg Oxycodone HCl (Roxycodone Tab*) 10 mg PO Q4H PRN PRN Reason: SEVERE PAIN Oxycodone/Acetaminophen (Percocet 5/325 Tab*) 2 tab PO Q4H PRN PRN Reason: PAIN Oxycodone/Acetaminophen (Percocet 5/325 Tab*) 2 tab PO Q4H PRN PRN Reason: PAIN Pharmacy Profile Note (Scopolamine Patch Remove*) 1 note PATCH OFF Q72H [facility] Polyethylene Glycol/Electrolytes (Miralax*) 17 gm PO DAILY PRN PRN Reason: Constipation Scopolamine (Transderm-Scop 1.5 Mg Patch*) 1 patch TRANSDERM Q72H PRN PRN Reason: NAUSEA Last Admin: 08/22/17 16:04 Dose: 1 patch Vital Signs - 8 hr 08/23/17 08/23/17 08/23/17 04:14 04:21 08:27 Temperature 98.1 F Pulse Rate 70 Respiratory 16 18 17 Rate Blood Pressure 146/54 (mmHg) O2 Sat by Pulse 99 Oximetry 08/23/17 08/23/17 08/23/17 08:33 09:22 10:43 Temperature Pulse Rate Respiratory 17 16 16 Rate Blood Pressure (mmHg) O2 Sat by Pulse Oximetry Oxygen Devices in Use Now: None Appearance: Alert, supine in bed. In good spirits. Looks comfortable. Eyes: No Scleral Icterus Extremities: No Edema, No Clubbing, Cyanosis, - - L leg in immoblizer Skin: No Rash or Ulcers, No Nodules or Sclerosis, - Neurological: Alert and Oriented x 3, NL Sensation Result Diagrams: 08/23/17 06:35 08/23/17 06:35 Microbiology and Other Data: Microbiology 08/22/17 08:04 Aerobic Blood Culture - Preliminary Blood Venous No Growth Day 1 Anaerobic Blood Culture - Preliminary No Growth Day 1 Assess/Plan/Problems-Billing Plan By Medical Problem: 1. DM: Lispro by SS 2. Elevated lactate: could be related to metformin, or tourniquet on too long. Repeat pending. 3. Leukocytosis: likely due to pain and stress of emergency events. Repeat pending. 4. Heart murmur: Pt states she has had this "all my life". Echo ordered. 5. Hypertension: continue lisinopril. VTE PPX: per Dr. Wolf - Patient Problems (1) Diabetes Current Visit: Yes Status: Acute Code(s): E11.9 - TYPE 2 DIABETES MELLITUS WITHOUT COMPLICATIONS SNOMED Code(s): 88518999 Comment: Continue Lispro bys SS. Resume metformin on discharge. (2) HTN (hypertension) Current Visit: Yes Status: Acute Code(s): I10 - ESSENTIAL (PRIMARY) HYPERTENSION SNOMED Code(s): 73572430 Comment: Continue lisinopril. (3) Left femoral shaft fracture Current Visit: Yes Status: Acute Code(s): S72.302A - UNSP FRACTURE OF SHAFT OF LEFT FEMUR, INIT FOR CLOS FX SNOMED Code(s): 13172959 Comment: For OR 08/23/17. (4) Mild aortic stenosis Current Visit: Yes Status: Acute Code(s): I35.0 - NONRHEUMATIC AORTIC (VALVE ) STENOSIS SNOMED Code(s): 81277729 Comment: Per echo 08/22/17.
[2017-08-23] MEDS ORDERED: fentaNYL* 50 MCG/ML 5 ML VIAL (250 MCG VIAL) ONE (13:15)
[2017-08-23] MEDS ORDERED: Atracurium* 10 MG/ML 10 ML VIAL ONE (13:15)
[2017-08-23] MEDS ORDERED: Midazolam* 1 MG/ML 10 ML VIAL (10 MG) ONE (13:15)
[2017-08-23] MEDS ORDERED: KETAMINE HCL* 50 MG/ML 10 ML VIAL ONE (13:15)
[2017-08-23] MEDS ORDERED: ceFAZolin 2 GM PREMIX (*) 2 GM/50 ML BAG IVPB ONE (13:19)
[2017-08-23] MEDS ORDERED: PROCHLORPERAZINE INJ 5 MG/ML 2 ML VIAL IV PRN (14:23)
[2017-08-23] MEDS ORDERED: Naloxone* 0.4 MG/ML 1 ML VIAL IV PRN (14:23)
[2017-08-23] MEDS ORDERED: oxyCODONE/Acetamin 5/325 MG* TAB PO PRN (14:23)
[2017-08-23] MEDS ORDERED: DiMENhydriNATE IV* 50 MG/ML VIAL IV PUSH PRN (14:23)
[2017-08-23] MEDS ORDERED: EPHEDrine (Pressors)* 50 MG/ML VIAL ONE (14:26)
[2017-08-23] MEDS ORDERED: Ondansetron INJ* 2 MG/ML VIAL ONE (14:26)
[2017-08-23] MEDS ORDERED: Propofol* 10 MG/ML 20 ML BTL IV PUSH ONE (14:26)
[2017-08-23] MEDS ORDERED: PROCHLORPERAZINE INJ 5 MG/ML 2 ML VIAL ONE (14:26)
[2017-08-23] MEDS ORDERED: Morphine INJ* 10 MG/ML 1 ML CARPUJECT ONE ×2 (16:18→17:36)
[2017-08-23] MEDS ORDERED: Neostigmine Methylsulfate* 2 MG/2 ML SYRINGE ONE (16:21)
[2017-08-23] MEDS ORDERED: Glycopyrrolate IV* 0.2 MG/ML 1 ML VIAL ONE (16:21)
[2017-08-23] MEDS ORDERED: fentaNYL* 50 MCG/ML 2 ML VIAL (100 MCG VIAL) ONE (17:36)
[2017-08-23] MEDS: fentaNYL* 50 MCG/ML 2 ML VIAL (100 MCG VIAL) IV PRN ×4 (17:37→19:11)
[2017-08-23] MEDS: Morphine INJ* 2 MG/ML 1 ML CARPUJECT IV PRN ×5 (17:38→19:21)
--- NOTE | 2017-08-23 17:44 | RAD ---
INDICATION: Femoral fracture. COMPARISON: None FINDINGS: 2.2 seconds of fluoroscopy were provided for the orthopedics department. Fluoroscopic spot imaging of the ankle were obtained CPT II Codes: 6045F (fluoro time doc)
--- NOTE | 2017-08-23 17:46 | RAD ---
INDICATION: Femoral fracture COMPARISON: August 21, 2017 FINDINGS: 47.5 seconds of fluoroscopy were provided for the orthopedics department. Fluoroscopic spot imaging of the left femur were obtained for operative control and show ORIF of the mid shaft femoral fracture . CPT II Codes: 6045F (fluoro time doc)
[2017-08-23] MEDS: oxyCODONE/Acetamin 5/325 MG* TAB PO PRN (22:12)
[2017-08-23] MEDS: Enoxaparin(*) 30 MG/0.3 ML SYR SUBCUT SCH (22:17)
[2017-08-24] MEDS: oxyCODONE TAB* 5 MG TAB PO PRN ×2 (00:24→09:26)
[2017-08-24] MEDS: Ondansetron INJ* 2 MG/ML VIAL IV SCH ×7 (00:26→23:27)
[2017-08-24] MEDS: oxyCODONE/Acetamin 5/325 MG* TAB PO PRN ×2 (03:48→12:15)
[2017-08-24 07:36] LABS: Hematocrit 26 % (35-47); Hemoglobin 8.5 g/dl (12.0-16.0)
[2017-08-24] MEDS: Lisinopril TAB* 10 MG PO SCH (09:26)
[2017-08-24] MEDS: Gabapentin CAP(*) 300 MG PO SCH ×2 (09:26→21:50)
[2017-08-24] MEDS: metFORMIN* 500 MG TAB PO SCH (09:26)
[2017-08-24] MEDS: Insulin LISPRO* 1 UNITS UNIT SUBCUT SCH ×4 (09:26→21:43)
[2017-08-24] MEDS: Docusate CAP* 100 MG PO SCH ×2 (09:55→21:42)
[2017-08-24] MEDS: Magnesium Hydroxide LIQ* 30 ML UDC PO SCH ×2 (09:55→21:42)
--- NOTE | 2017-08-24 15:18 | OP ---
OPERATIVE REPORT: DATE OF OPERATION: 08/23/17. DATE OF : [birth year]. SURGEON: Aida Wolf MD. FINISH PRODUCTION MANAGER: NICOLE Dickens. Ms. Mays did have prosthesis for preparation of the leg wound retraction and manipulation of the leg and wound closure. ANESTHESIOLOGIST: Dr. Vance. ANESTHESIA: General. PRE-OP DIAGNOSIS: Distal lateral malleolus fracture as well as left comminuted displaced distal femur fracture. POST-OP DIAGNOSIS: Distal lateral malleolus fracture as well as left comminuted displaced distal femur fracture. OPERATIVE PROCEDURE: 1. Stability exam of the right ankle under x-ray and anesthesia. 2. Open reduction and internal fixation of the left comminuted displaced distal femur fracture. HARDWARE USED: This was a left Synthes distal femoral locking plate. 4 cortical screws were used proximal to the fracture site. In the vicinity of the fracture site, 4 cables were used and distal to the fracture site 1 cortical and 3 locking screws were used in the plate. COMPLICATIONS: None. ESTIMATED BLOOD LOSS: 500 cc. SPECIMEN: None. BRIEF HISTORY/INDICATIONS: Ms. Blanchard is a 62-year-old female, who had a fall down some steps in the late evening of 08/21/17. She was admitted to the [facility] over night. She was found to have a comminuted displaced left distal femur fracture and a right lateral malleolus avulsion fracture. She elected to undergo surgical fixation of the left femur fracture and appropriate hardware was ordered and cleaned. She was optimized for surgery on 08/23/17 and wanted to proceed. Informed consent was obtained from the patient. She understood the risks of the surgery, included but were not limited to bleeding, infection, damage to nearby structures, continued pain, need for further surgery, intraoperative fracture, nerve palsy, hardware failure or loosening, failure of the bone to heal, knee stiffness, loss of motion, stroke, heart attack, blood clot, and . She wished to proceed. INTRAOPERATIVE FINDINGS: Intraoperatively, the right ankle was stressed with both internal and external rotation. The ankle mortise showed no obvious change in size or width. This was found to be a stable distal lateral malleolus avulsion fracture. The patient's left femur fracture had extensive comminution and had greater than 5 pieces. The anterior femur in the supracondylar region had the most significant comminution of bone loss. DESCRIPTION OF PROCEDURE: Ms. Laws was identified in the preanesthesia unit. Her bilateral lower extremities were marked as the correct operative side. Informed consent was signed and placed in the chart. The patient was taken to the operating room and placed under general anesthesia. She had a Moreno catheter. Preop time-out was made to correctly identify the patient's side and site. Appropriate perioperative antibiotics were given within 1 hour of incision. C-arm was used to obtain an AP and mortise view of the right ankle. The distal lateral malleolus avulsion fracture was visualized. External and internal rotation stress were then applied and radiographs showed no significant widening of the mortise. This seemed to be a stable ankle fracture. The left lower extremity was prepped and draped in the usual sterile fashion. A preop time-out had already been obtained. A second time-out was made to clarify to left open reduction and internal fixation of the distal femur fracture. A 15 cm straight lateral incision was made along the length of the femur. Electrocautery was used to dissect through the subcutaneous tissue to the lateral fascial layer. Lateral fascial layer was then incised in line with the skin incision. Vastus lateralis was immediately visualized. A Cosby elevator, clamp, and electrocautery were used to carefully elevate the vastus lateralis off the lateral fascial layer and tied to the end. At this point, the fracture fragments were visible. There was significant amount of comminution of the fracture site in the supracondylar region anteriorly. They were also long comminuted fracture fragments in the entire distal femur. The fracture site was irrigated and any hematoma or fibrous debris were carefully removed. Large turkey clamps were used to help with reduction while traction was pulled along the foot. It was determined that the best technique would be bridging technique to keep the femur out of the length. The appropriate length distal femoral locking plate chosen out of the Synthes hand. This was laid along the lateral femur. AP and lateral C-arm views confirmed that the plate was in a satisfactory position. A single cortical screw was placed distal to the fracture site. Under x-ray guidance, traction was applied and the femur was brought out to length. A nonlocking cortical screw was then placed proximal to the fracture site. Multiple AP and lateral C-arm views were used to confirm satisfactory fracture reduction. This was confirmed. The femur was out to length. The plate was in a satisfactory position. At this time, 4 cables were placed along the comminuted portion of the fracture in order to hold the pieces in a more anatomic position. Four locking screws were then placed distally in the plate. AP and lateral C-arm views helped guide the placement of these screws. Three additional nonlocking screws were placed proximal to the fracture site. The leg was rotated through the hip and knee. The fracture was visualized and was noted to be stable. AP and lateral final C-arm showed a stable satisfactory reduction. There was satisfactory placement of the plate and screws. The leg was copiously irrigated with sterile saline. The lateral fascial layer was closed using interrupted #1 Vicryls. The rest of the incisions were closed in a layered fashion using 0 and 2-0 Vicryls. Skin was closed using saroj. Sterile 4x4s and Webril were used to cover the incision. The patient's weightbearing was full weightbearing as tolerated on the right lower extremity and nonweightbearing on the left lower extremity. She will have Lovenox for DVT prophylaxis. Her anesthesia was reversed without difficulty and she was taken to the PACU in stable condition. She is neurovascularly intact distally. [id number]/[facility] #: [id number] [facility]SE HOSPITALMargarito
--- NOTE | 2017-08-24 17:01 | PN ---
Progress Note - Progress Note Date of Service: 08/24/17 SOAP: Subjective: []Patient seen at bedside. Pain is tolerable. LLE more painful than right as she expected. Denies CP, SOB, fever, chills or nausea. Objective: [] General: NAD, well appearing LLE: Dressing CDI. Immobilizer in place. DF/PF intact. 2+DP. Sensation intact distally. Calf supple and nontender without erythema or edema RLE: mildly tender to palpation over distal lateral aspect of leg. No erythema or edema. Calf supple and nontender without erythema or edema. DF/PF intact. 2+ DP Vital Signs Temp 98.8 F 08/24/17 16:04 Pulse 92 08/24/17 16:04 Resp 16 08/24/17 16:04 BP 152/46 08/24/17 16:04 Pulse Ox 94 08/24/17 16:04 Intake & Output 08/23/17 08/24/17 08/24/17 18:59 06:59 18:59 Intake Total 3762 394 9900 Output Total 625 500 650 Balance 4389 528 3610 Intake: IV Fluids 1950 1695 LR 1695 NS 50ML, Cefazolin 2G 50 lr 1900 Oral 840 Output: Moreno 625 500 650 Other: Estimated Void Medium Vital Signs Temp Pulse Resp BP Pulse Ox 98.8 F 92 16 152/46 94 08/24/17 16:04 08/24/17 16:04 08/24/17 16:04 08/24/17 16:04 08/24/17 16:04 Laboratory Last Values WBC 10.1 10^3/ul (3.5-10.8) 08/22/17 08:04 RBC 3.80 10^6/ul (4.0-5.4) L 08/22/17 08:04 Hgb 8.5 g/dl (12.0-16.0) L 08/24/17 07:02 Hct 26 % (35-47) L 08/24/17 07:02 MCV 87 fL (80-97) 08/22/17 08:04 MCH 30 pg (27-31) 08/22/17 08:04 MCHC 34 g/dl (31-36) 08/22/17 08:04 RDW 13 % (10.5-15) 08/22/17 08:04 Plt Count 241 10^3/ul (150-450) 08/22/17 08:04 MPV 9 um3 (7.4-10.4) 08/22/17 08:04 Neut % (Auto) 60.3 % (38-83) 08/22/17 08:04 Lymph % (Auto) 31.0 % (25-47) 08/22/17 08:04 [place] % (Auto) 7.3 % (1-9) 08/22/17 08:04 Eos % (Auto) 0.7 % (0-6) 08/22/17 08:04 Baso % (Auto) 0.7 % (0-2) 08/22/17 08:04 Absolute Neuts (auto) 6.1 10^3/ul (1.5-7.7) 08/22/17 08:04 Absolute Lymphs (auto) 3.1 10^3/ul (1.0-4.8) 08/22/17 08:04 Absolute Monos (auto) 0.7 10^3/ul (0-0.8) 08/22/17 08:04 Absolute Eos (auto) 0.1 10^3/ul (0-0.6) 08/22/17 08:04 Absolute Basos (auto) 0.1 10^3/ul (0-0.2) 08/22/17 08:04 Absolute Nucleated RBC 0 10^3/ul 08/22/17 08:04 Nucleated RBC % 0 08/22/17 08:04 INR (Anticoag Therapy) 0.85 (0.77-1.02) 08/21/17 22:35 APTT 25.3 seconds (26.0-36.3) L 08/21/17 22:35 Sodium 137 mmol/L (133-145) 08/23/17 06:35 Potassium 3.8 mmol/L (3.5-5.0) 08/23/17 06:35 Chloride 105 mmol/L (101-111) 08/23/17 06:35 Carbon Dioxide 27 mmol/L (22-32) 08/23/17 06:35 Anion Gap 5 mmol/L (2-11) 08/23/17 06:35 BUN 10 mg/dL (6-24) 08/23/17 06:35 Creatinine 0.60 mg/dL (0.51-0.95) 08/23/17 06:35 Est GFR ( Amer) 130.7 (>60) 08/23/17 06:35 Est GFR (Non-Af Amer) 101.6 (>60) 08/23/17 06:35 BUN/Creatinine Ratio 16.7 (8-20) 08/23/17 06:35 Glucose 153 mg/dL (70-100) H 08/23/17 06:35 POC Glucose (mg/dL) 249 mg/dL (70-100) H 08/24/17 12:16 Lactic Acid 1.7 mmol/L (0.5-2.0) 08/22/17 08:04 Calcium 8.6 mg/dL (8.6-10.3) 08/23/17 06:35 Total Bilirubin 0.50 mg/dL (0.2-1.0) 08/21/17 22:35 AST 17 U/L (13-39) 08/21/17 22:35 ALT 19 U/L (7-52) 08/21/17 22:35 Alkaline Phosphatase 64 U/L (34-104) 08/21/17 22:35 Troponin I 0.01 ng/mL (<0.04) 08/21/17 22:35 Total Protein 6.4 g/dL (6.4-8.9) 08/21/17 22:35 Albumin 3.8 g/dL (3.2-5.2) 08/21/17 22:35 Globulin 2.6 g/dL (2-4) 08/21/17 22:35 Albumin/Globulin Ratio 1.5 (1-3) 08/21/17 22:35 Urine Color Straw 08/22/17 00:49 Urine Appearance Clear 08/22/17 00:49 Urine pH 7.0 (5-9) 08/22/17 00:49 Ur Specific Herrick 1.009 (1.010-1.030) L 08/22/17 00:49 Urine Protein 1+(30 mg/dl) (Negative) H 08/22/17 00:49 Urine Ketones Negative (Negative) 08/22/17 00:49 Urine Blood 1+ (Negative) H 08/22/17 00:49 Urine Nitrate Negative (Negative) 01/09/18 00:49 Urine Bilirubin Negative (Negative) 08/22/17 00:49 Urine Urobilinogen Negative (Negative) 08/22/17 00:49 Ur Leukocyte Esterase Negative (Negative) 08/22/17 00:49 Urine WBC (Auto) Trace(0-5/hpf) (Absent) 08/22/17 00:49 Urine RBC (Auto) Trace(0-2/hpf) (Absent) 08/22/17 00:49 Ur Squamous Epith Cells Present (Absent) H 08/22/17 00:49 Urine Bacteria Absent (Absent) 08/22/17 00:49 Urine Glucose 3+(>=500 mg/dl) (Negative) H 08/22/17 00:49 Blood Type B Negative 08/21/17 22:35 Antibody Screen Negative 08/21/17 22:35 Assessment: []POD 1 sp L femur ORIF R distal fibula fracture Plan: []WBAT RLE NWB LLE PT/OT Lovenox
--- NOTE | 2017-08-24 18:40 | PN ---
Subjective Date of Service: 08/24/17 Interval History: Patient complains of pain at 8/10 in surgical leg. Patient states she has been nauseated, but is not at the time of exam. Patient denies F/C, Vomiting, abdominal pain, diarrhea, constipation, dysuria, or other pain. Family History: Findings - Father had IA. Also fam hx of DM, ca pancreas Social History: Findings - Quit smoking about 20 yrs ago. No alcohol abuse. 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 Lives alone, single. Daughter Sandra is her SDM. Past Medical History: Findings - [facility], x 2. 3 children. Objective Active Medications: Bisacodyl (Dulcolax Supp*) 10 mg TN DAILY PRN PRN Reason: constipation Cyclobenzaprine HCl (Flexeril Tab*) 10 mg PO TID PRN PRN Reason: SPASMS - MUSCLE Dextrose (D50w Syringe 50 Ml*) 12.5 gm IV PUSH .FOR FS < 60 - SS PRN PRN Reason: FS < 60 Diphenhydramine HCl (Benadryl Iv*) 12.5 mg IV Q6H PRN PRN Reason: PRURITIS Docusate Sodium (Colace Cap*) 100 mg PO BID [facility] Last Admin: 08/24/17 09:55 Dose: 100 mg Enoxaparin Sodium (Lovenox(*)) 30 mg SUBCUT Q24H [facility] Last Admin: 08/23/17 22:17 Dose: 30 mg Gabapentin (Neurontin Cap(*)) 600 mg PO BID [facility] Last Admin: 08/24/17 09:26 Dose: 600 mg Lactated Ringer's (Lactated Ringers 1000 Ml Bag*) 1,000 mls @ 100 mls/hr IV PER RATE [facility] Last Admin: 08/24/17 16:21 Dose: 100 mls/hr Insulin Human Lispro (Humalog*) 0 units SUBCUT ACHS [facility] PRN Reason: Protocol Last Admin: 08/24/17 18:01 Dose: 6 units Lactulose (Lactulose*) 30 ml PO Q6H PRN PRN Reason: constipation Lisinopril (Prinivil Tab*) 20 mg PO DAILY [facility] Last Admin: 08/24/17 09:26 Dose: 20 mg Magnesium Hydroxide (Milk Of Magnesia Liq*) 30 ml PO BID [facility] Last Admin: 08/24/17 09:55 Dose: 30 ml Magnesium Hydroxide (Milk Of Magnesia Liq*) 30 ml PO Q6H PRN PRN Reason: constipation Metformin HCl (Glucophage*) 500 mg PO DAILY [facility] Last Admin: 08/24/17 09:26 Dose: 500 mg Morphine Sulfate (Morphine Inj (Syringe)*) 2 mg IV Q2H PRN PRN Reason: PAIN Last Admin: 08/23/17 09:22 Dose: 2 mg Ondansetron HCl (Zofran Tab*) 4 mg PO Q6H PRN PRN Reason: NAUSEA Last Admin: 08/22/17 12:18 Dose: 4 mg Ondansetron HCl (Zofran Inj*) 4 mg IV Q4H [facility] Last Admin: 08/24/17 16:20 Dose: 4 mg Oxycodone HCl (Roxycodone Tab*) 10 mg PO Q4H PRN PRN Reason: SEVERE PAIN Last Admin: 08/24/17 09:26 Dose: 10 mg Oxycodone/Acetaminophen (Percocet 5/325 Tab*) 2 tab PO Q4H PRN PRN Reason: PAIN Last Admin: 08/24/17 12:15 Dose: 2 tab Oxycodone/Acetaminophen (Percocet 5/325 Tab*) 2 tab PO Q4H PRN PRN Reason: PAIN Pharmacy Profile Note (Scopolamine Patch Remove*) 1 note PATCH OFF Q72H [facility] Polyethylene Glycol/Electrolytes (Miralax*) 17 gm PO DAILY PRN PRN Reason: Constipation Scopolamine (Transderm-Scop 1.5 Mg Patch*) 1 patch TRANSDERM Q72H PRN PRN Reason: NAUSEA Last Admin: 08/22/17 16:04 Dose: 1 patch Vital Signs - 8 hr 08/24/17 08/24/17 08/24/17 11:28 12:15 12:20 Temperature 99.2 F Pulse Rate 91 Respiratory 12 16 16 Rate Blood Pressure 159/52 (mmHg) O2 Sat by Pulse 96 Oximetry 08/24/17 08/24/17 08/24/17 14:41 16:04 18:13 Temperature 98.8 F Pulse Rate 92 Respiratory 16 16 Rate Blood Pressure 152/46 (mmHg) O2 Sat by Pulse 94 94 Oximetry Oxygen Devices in Use Now: None Appearance: Patient is a 62yo female who appears stated age and is sitting in the bed in NAD. Eyes: No Scleral Icterus, PERRLA Ears/Nose/Mouth/Throat: NL Teeth, Lips, Gums, Clear Oropharnyx, Mucous Membranes Moist Neck: NL Appearance and Movements; NL JVP, Trachea Midline Respiratory: Symmetrical Chest Expansion and Respiratory Effort, Clear to Auscultation Cardiovascular: NL Sounds; No Murmurs; No JVD, RRR, No Edema, - - Pulses 2+ in B /L Radial, PT/DP Abdominal: NL Sounds; No Tenderness; No Distention, No Hepatosplenomegaly Lymphatic: No Cervical Adenopathy Extremities: No Edema, No Clubbing, Cyanosis Skin: No Nodules or Sclerosis, - - left LE immobilized at the knee covering a non-visualized surgical incision. Neurological: Alert and Oriented x 3, NL Sensation, - - CN II-XII intact. Result Diagrams: 08/24/17 07:02 08/23/17 06:35 Microbiology and Other Data: Microbiology 08/22/17 08:04 Aerobic Blood Culture - Preliminary Blood Venous No Growth Day 1 Anaerobic Blood Culture - Preliminary No Growth Day 1 Assess/Plan/Problems-Billing Plan By Medical Problem: 1. DM: Lispro by SS 2. Elevated lactate: could be related to metformin, or tourniquet on too long. Repeat pending. 3. Leukocytosis: likely due to pain and stress of emergency events. Repeat pending. 4. Heart murmur: Pt states she has had this "all my life". Echo ordered. 5. Hypertension: continue lisinopril. VTE PPX: per Dr. Wolf - Patient Problems (1) Left femoral shaft fracture Current Visit: Yes Status: Acute Code(s): S72.302A - UNSP FRACTURE OF SHAFT OF LEFT FEMUR, INIT FOR CLOS FX SNOMED Code(s): 34623063 Comment: POD#1 from ORIF. Pain controlled. No BM, positive flatus. Moreon in place. H/H decreasing, will monitor and transfuse as needed. (2) Diabetes Current Visit: Yes Status: Acute Code(s): E11.9 - TYPE 2 DIABETES MELLITUS WITHOUT COMPLICATIONS SNOMED Code(s): 01812167 Comment: Moderately well controlled. Continue Lispro bys SS. Continue metformin. Add lantus 5u daily. (3) HTN (hypertension) Current Visit: Yes Status: Acute Code(s): I10 - ESSENTIAL (PRIMARY) HYPERTENSION SNOMED Code(s): 24108600 Comment: Normotensive to low hypetensive. Continue lisinopril. (4) Mild aortic stenosis Current Visit: Yes Status: Acute Code(s): I35.0 - NONRHEUMATIC AORTIC (VALVE ) STENOSIS SNOMED Code(s): 72096800 Comment: Per echo 08/22/17. (5) DVT prophylaxis Current Visit: Yes Status: Acute Code(s): BPK6406 - SNOMED Code(s): 895066677 Comment: Lovenox (6) Full code status Current Visit: Yes Status: Acute Code(s): Z78.9 - OTHER SPECIFIED HEALTH STATUS SNOMED Code(s): 798526289 Status and Disposition: Patient is admitted inpatient. Disposition per ortho.
[2017-08-24] MEDS ORDERED: Insulin GLARGINE(*) 1 UNITS UNIT SUBCUT SCH (20:00)
[2017-08-24] MEDS ORDERED: Acetaminophen TAB* 325 MG PO PRN (20:43)
[2017-08-24] MEDS: Enoxaparin(*) 30 MG/0.3 ML SYR SUBCUT SCH (23:27)
[2017-08-25] MEDS: Ondansetron INJ* 2 MG/ML VIAL IV SCH ×3 (03:52→11:32)
[2017-08-25] MEDS: oxyCODONE/Acetamin 5/325 MG* TAB PO PRN ×2 (03:52→08:15)
[2017-08-25 06:49] LABS: Hematocrit 24 % (35-47); Hemoglobin 8.3 g/dl (12.0-16.0)
[2017-08-25] MEDS: Magnesium Hydroxide LIQ* 30 ML UDC PO SCH (08:11)
[2017-08-25] MEDS: Gabapentin CAP(*) 300 MG PO SCH (08:14)
[2017-08-25] MEDS: Docusate CAP* 100 MG PO SCH (08:15)
[2017-08-25] MEDS: Lisinopril TAB* 10 MG PO SCH (08:15)
[2017-08-25] MEDS: metFORMIN* 500 MG TAB PO SCH (08:15)
[2017-08-25] MEDS: Insulin LISPRO* 1 UNITS UNIT SUBCUT SCH ×2 (09:02→12:45)
--- NOTE | 2017-08-25 09:15 | PN ---
Progress Note - Progress Note Date of Service: 08/25/17 SOAP: Subjective: 62 y/o female s/p 08/23 ORIF of L distal mal fx, displaced dist fem fx by Dr. Washington. Patient pain well controlled no complaints, questions. Objective: General- Well appearing, NAD resting in bed MSK- Dressing changed by Dr. Washington this AM, + DF/PF b/l, SITLT b/l, neg homans. PT 2+ b/l. Vital Signs Temp 97.7 F 08/25/17 08:23 Pulse 96 08/25/17 08:23 Resp 16 08/25/17 08:23 BP 157/52 08/25/17 08:23 Pulse Ox 97 08/25/17 08:23 Intake & Output 08/24/17 08/25/17 08/25/17 18:59 06:59 18:59 Intake Total 1695 2852 Output Total 650 1225 300 Balance 1045 1627 -300 Intake: IV Fluids 1695 1192 LR 1695 1192 Oral 1660 Output: Moreno 650 1225 300 Other: Estimated Void Medium Assessment: Stable 62 y/o female s/p 08/23 ORIF of L distal mal fx, displaced dist fem fx by Dr. Washington. Plan: - DVT prophylax- lovenox x 1 month - Continue PT/OT - CHRISTIAN today, follow up with DR. washington within 10 days - Neg blood cultures - NWB L leg, WBAT R leg
[2017-08-25] MEDS: oxyCODONE TAB* 5 MG TAB PO PRN (11:31)
[2017-08-25 11:54] VITALS: BP 128/51
--- NOTE | 2017-08-25 13:31 | DS ---
DATE OF ADMISSION: 08/21/2017. DATE OF DISCHARGE: 08/25/2017. ATTENDING SURGEON: Dr. Aida Wolf* (dictated by NICOLE Bales). CHIEF COMPLAINT: 1. Left thigh pain, right ankle pain. 2. Hypertension. 3. Diabetes. 4. Elevated cholesterol. 5. Morbid obesity. DISCHARGE DIAGNOSES: 1. Status post ORIF left distal femur. 2. Hypertension. 3. Diabetes. 4. hypercholesterolemia. 5. Morbid obesity. 6. Nondisplaced fracture of the distal fibula. PROCEDURE: ORIF of the left comminuted displaced distal femoral fracture, uncomplicated. CONSULTATIONS: 1. Physical Therapy. 2. Occupational Therapy. 3. Medicine. BRIEF HISTORY: Ms. Laws is a very pleasant, 62-year-old female who presented to the emergency room after a fall on 08/21/2017 at her daughter's home with left thigh pain and with ankle pain. She was found to have a displaced distal femoral fracture as well as a nondisplaced fibular fracture on the right ankle. HOSPITAL COURSE: The patient was admitted to [facility] on [address] Aida Wolf. She underwent an open reduction internal fixation of a left comminuted displaced distal femur fracture, as well as a stability examination of the right ankle under x-ray guidance and anesthesia on 2017 which was uncomplicated. The patient tolerated the procedure and was transferred to the Surgical Short Stay Unit postoperatively. Her pain was controlled with Percocet as well as Flexeril for muscle spasms. Her glucose remained elevated and she was started on insulin sliding scale as well as her Metformin. Her DVT prophylaxis was managed with Lovenox. On postoperative day two, she was deemed orthopedically and medically stable for discharge to [facility] for continued care. PHYSICAL EXAMINATION: General: Well-appearing, in no acute distress, alert and oriented, resting comfortably. Vital Signs: Temperature 98.1, pulse 87, respirations 16, oxygen saturation 93 percent on room air, blood pressure 128/ 51. Examination of the left thigh was completed by Dr. Wolf. The patient had positive dorsiflexion and plantarflexion bilaterally. Posterior tibial pulses were 2+ bilaterally. Minimal edema bilateral lower extremities. Sensation to light touch intact bilateral lower extremities. LABORATORY DATA ON THE DATE OF DISCHARGE: H and H of 8.3 and 24 with an elevated glucose of 205. DISCHARGE MEDICATIONS: 1. Flexeril 10 mg p.o. t.i.d. prn for muscle spams. 2. Colace 100 mg p.o. b.i.d. 3. Lovenox 30 mg subcu every 24 hours for DVT prophylaxis. 4. Neurontin 600 mg p.o. b.i.d. 5. Lisinopril 20 mg p.o. daily. 6. Metformin 500 mg p.o. daily. 7. Percocet one to two tablets every 4 hours as needed for pain. CONDITION ON DISCHARGE: Stable. DISCHARGE INSTRUCTIONS: Ms. Laws is a very pleasant, 62-year-old female, postoperative day two status post ORIF of the left femur which was uncomplicated. She is orthopedically and medically stable for discharge to [facility]. Her labs and vital signs are stable. She can restart her home medications. She will need to follow-up with her primary care doctor for diabetic management and tighter glucose control. She should continue to have her blood sugars checked on a daily basis. She will have Lovenox given subcu daily to prevent DVT for approximately one month. She was nonweightbearing on her left lower extremity. She will continue to have physical therapy. She will take Percocet for pain control and Colace up to three times a day as needed for constipation. She will follow-up with Dr. Wolf in approximately 10 to 14 days for incision check and suture removal. She was instructed to go to the ER should she develop chest pain or shortness of breath, and should she develop fever, increasing pain, or redness she is to call the office immediately. NICOLE BALES [id number]/[facility] #: [id number] ALEX
[2017-08-25] MEDS ORDERED: Scopolamine PATCH Remove* 1 NOTE MISC PATCH OFF SCH (15:47)
[2017-08-25] MEDS ORDERED: Warfarin TAB(*) 6 MG PO SCH (17:00)
== END 2017-08-25 14:25 | DRG 308 ==
LOC: ED 21:16 → SSU 08-22 01:48
PROVIDERS: ADMIT Orthopaedic Surgery Adult Reconstructive Orthopaedic Surgery; ATTEND Internal Medicine
PROC: 2W3QX1Z Immobilization of Right Lower Leg using Splint (ICD-10-PCS; principal; 2017-08-22)
PROC: 0QSC04Z Reposition Left Lower Femur with Internal Fixation Device, Open Approach (ICD-10-PCS; 2017-08-23)
PROC: 8E0KXY7 Examination of Musculoskeletal System (ICD-10-PCS; 2017-08-23)
DX: S72.402A Unspecified fracture of lower end of left femur, initial encounter for closed fracture (principal); E11.65 Type 2 diabetes mellitus with hyperglycemia; E66.01 Morbid (severe) obesity due to excess calories; E78.00 Pure hypercholesterolemia, unspecified; S82.61XA Displaced fracture of lateral malleolus of right fibula, initial encounter for closed fracture; D72.829 Elevated white blood cell count, unspecified; W10.9XXA Fall (on) (from) unspecified stairs and steps, initial encounter; I10 Essential (primary) hypertension; R40.2362 Coma scale, best motor response, obeys commands, at arrival to emergency department; R40.2142 Coma scale, eyes open, spontaneous, at arrival to emergency department; M62.838 Other muscle spasm; R40.2252 Coma scale, best verbal response, oriented, at arrival to emergency department; I35.0 Nonrheumatic aortic (valve) stenosis; R01.1 Cardiac murmur, unspecified; R11.0 Nausea; R74.0 Nonspecific elevation of levels of transaminase and lactic acid dehydrogenase [LDH]; Y92.038 Other place in apartment as the place of occurrence of the external cause; Z68.37 Body mass index [BMI] 37.0-37.9, adult; Z82.49 Family history of ischemic heart disease and other diseases of the circulatory system; Z83.3 Family history of diabetes mellitus; Z80.0 Family history of malignant neoplasm of digestive organs; Z87.891 Personal history of nicotine dependence; Z79.01 Long term (current) use of anticoagulants; Z79.84 Long term (current) use of oral hypoglycemic drugs
CPT/HCPCS: 36415; 70450; 71045; 76001; 80048; 80053; 81003; 81015; 83605; 84484; 85014; 85018; 85025; 85610; 85730; 86850; 86900; 86901; 87040; 93005; 93306; 94760; 96374; 96375; 99284; A9270-GY; J0690; J0780; J1650; J2250; J2270; J2405; J2704; J3010

== ENCOUNTER 2018-02-28 14:21 | Emergency (ER) | payer BC ==
--- OUTSIDE RECORDS SUMMARY | 2018-02-28 14:28 | XMS REPORT ---
:1955 External Reference #:[id number] Author Organization [employer] Address [address] [place] [address] Phone [phone] Care Team Providers Name Role Phone Benjy Norman MD Primary Care Physician Unavailable Payers Type Date Identification Numbers Payment Provider Subscriber Commercial Effective: Policy Number: [employer] Dotty Mario Alberto Laws 2012 [id number] PayID: [id number] [address] [address] [place] [id number] Medigap Part B Effective: Policy Number: [facility] Dotty Mario Alberto 2005 [id number] Veto Expires: 2012 PayID: [id number] [address] [address] [place] [id number] Problems Date Description Provider Status Onset: 04/30/2012 Mitral valve disorder [place] [facility] Schedule Active Onset: 04/30/2012 Heart murmur [place] [facility] Schedule Active Onset: 10/06/2017 Displ commnt fx lisa lester, D Aida Wolf M.D. 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 Cigarette Use Former Cigarette Smoker 1 Pack pt smoked for 20 Daily years-quit 4 years ago ETOH Use Denies alcohol use Smoking Patient has never smoked Daily Caffeine Consumes on average 1 cup of regular coffee per day Exercise Type/Frequency Exercises sporadically Allergies, Adverse Reactions, Alerts Date Description Reaction Status Severity Comments 03/13/2008 NKDA active Medications Medication Date Status Form Strength Qnty SIG Indications Ordering Provider Metformin HCL / Active Tablets 500mg 1 by Unknown 0000 mouth twice a day Glipizide / Active Tablets 10mg 1 by Unknown 0000 mouth once a day Senno / Active Tablets 8.6mg Unknown 0000 Atorvastatin / Active Tablets 20mg take 1 Unknown Calcium 0000 tablet at bedtime Lisinopril / Active Tablets 40mg 1 by Unknown 0000 mouth every day Cephalexin 10/06/ Hx Capsules 500mg 60cap 1 capsule S72.352D Aida 2017 s by mouth Luciano, 12/18/ every 6 M.D. 2018 hours Aspirin 09/20/ Hx Tablets DR 325mg 60tab take 1 by Aida 2017 - s mouth Luciano, 12/18/ once a M.D. 2018 day for two weeks Percocet 08/25/ Hx Tablets 5-325mg 90tab one- two Aida 2017 - tablets Luciano, 12/18/ every 4-6 M.D. 2018 hours as needed for pain Gabapentin 09/22/ Hx Capsules 300mg 60cap take 1 E11.42 Shola 2015 - capsule Tommie, 12/18/ by mouth M.D. 2018 at night Gabapentin 06/15/ Hx Tablets 600mg 90tab 1 - 3 Toni Goncalves 2011 - s tabs Silvia, 08/20/ daily as M.D. 2016 directed Lisinopril 05/06/ Hx Tablets 20mg 45tab 1 tab po Qutaybeh 2007 - pm S. [facility] El[facility] Lisinopril 03/13/ Hx Tablets 20mg 90tab 1 PO qd Qutaybeh 2007 - S. 05/06/ isaiydhernando 2007 Elian Crestor 03/13/ Hx Tablets 10mg 1 PO qd Qutaybeh 2007 - S. milan 2012 Elian Metaglip 03/13/ Hx Tablets 5-500mg 120ta 1 tab po Qutaybeh 2007 - bs Am S. 08/20/ Niko 2015 Elian Vitamin E 03/13/ Hx Capsules 400Unit 1 PO qd Qutaybdejon 2008 - S. 01/16/ Niko Dickinson M.D. Lipitor / Hx Tablets 20mg one tab Unknown 0000 - by mouth 2017 night at bedtime Colace / Hx Unknown 0000 - 2017 Cyclobenzaprine / Hx Unknown HCL - 2017 Humalog / Hx Unknown - 2017 Lovenox / Hx Solution 30mg/0.3ML inject Unknown 0000 - 0.3ml 2017 twice a day Oxycodone HCL / Hx Capsules 5mg 1-2 tabs Unknown 0000 - by mouth 4-6 2018 hours as needed pain Vital Signs Date Vital Result Comment 02/19/2018 Height 60 inches 5'0" Heart Rate 83 /min BP Systolic 124 mmHg BP Diastolic 76 mmHg Respiratory Rate 16 /min Body Temperature 97.6 F Pain Level 0 12/18/2017 Height 60 inches 5'0" Weight 175.00 lb Heart Rate 78 /min BP Systolic 132 mmHg BP Diastolic 62 mmHg Respiratory Rate 16 /min Body Temperature 98.8 F Pain Level 0 BMI (Body Mass Index) 34.2 kg/m2 10/27/2017 Height 60 inches 5'0" Heart Rate 84 /min BP Systolic 126 mmHg BP Diastolic 72 mmHg Respiratory Rate 16 /min Body Temperature 98.7 F Pain Level 2 10/06/2017 Height 60 inches 5'0" Weight 175.00 lb Heart Rate 81 /min Respiratory Rate 17 /min Body Temperature 97.9 F Pain Level 1 BMI (Body Mass Index) 34.2 kg/m2 09/20/2017 Height 60 inches 5'0" Weight 175.00 lb Heart Rate 82 /min BP Systolic 148 mmHg BP Diastolic 70 mmHg Pain Level 0 BMI (Body Mass Index) 34.2 kg/m2 09/06/2017 Height 60 inches 5'0" Weight 182.00 lb BP Systolic 138 mmHg BP Diastolic 70 mmHg Body Temperature 98.7 F BMI (Body Mass Index) 35.5 kg/m2 09/22/2015 Height 60 inches 5'0" Weight 190.00 lb Pain Level 4 BMI (Body Mass Index) 37.1 kg/m2 08/21/2015 Height 60 inches 5'0" Weight 190.00 lb Heart Rate 69 /min BP Systolic 151 mmHg BP Diastolic 75 mmHg BMI (Body Mass Index) 37.1 kg/m2 03/22/2013 Heart Rate 84 /min BP Systolic Sitting 140 mmHg BP Diastolic Sitting 68 mmHg Respiratory Rate 16 /min 01/16/2013 Weight 176.00 lb Heart Rate 76 /min BP Systolic 124 mmHg BP Diastolic 80 mmHg Respiratory Rate 12 /min 05/06/2008 Height 60 inches 5'0" Weight 192.00 lb Heart Rate 64 /min BP Systolic Sitting 136 mmHg BP Diastolic Sitting 64 mmHg BMI (Body Mass Index) 37.5 kg/m2 03/13/2008 Height 60 inches 5'0" Weight 194.00 lb Heart Rate 70 /min BP Systolic Sitting 160 mmHg L BP Diastolic Sitting 70 mmHg L BMI (Body Mass Index) 37.9 kg/m2 Results Description No Information Procedures Date CPT Code Description Status 08/23/2017 14441 CLSD TX Distal Fib FX (Lateral Malleolus) w/o Completed manipulation 08/23/2017 15180 CLSD TX Distal Fib FX (Lateral Malleolus) w/o Completed manipulation 08/23/2017 51040 Open TX Femoral Shaft FX W/Plates & Screws W Or W/O Completed [place] 08/23/2017 44524 Open TX Femoral Shaft FX W/Plates & Screws W Or W/O Completed [place] 08/22/2017 65670 ECHO Transthorasic Realtime 2D W Doppler & Color Flow Completed Hosp 03/02/2016 27063 ECHO Transthoracic, Real-Time 2D With Doppler And Color Completed Flow 04/23/2013 78029 Nerve Conduction 09-10 Studies Completed 04/23/2013 13091 Nerve Conduction 07-08 Studies Completed 04/30/2012 78015 ECHO Transthoracic, Real-Time 2D With Doppler And Color Completed Flow 03/21/2012 65134 Nerve Conduction, Sensory Completed 03/21/2012 66366 Nerve Conduction, Motor W/F-Wave Study Completed 04/08/2008 30171 Stress Test Completed 04/08/2008 49191 Stress Test Completed 04/08/2008 38865 ECHO/Stress Completed 04/01/2008 32855 Color Doppler Completed 04/01/2008 85423 Color Doppler Completed 04/01/2008 27962 Color Doppler Completed 04/01/2008 17549 Pulse Doppler & Continuous Wave Completed 04/01/2008 51883 Pulse Doppler & Continuous Wave Completed 04/01/2008 93479 Echocardiogram Completed 04/01/2008 01421 Echocardiogram Completed 04/01/2008 81173 Echocardiogram Completed 03/19/2008 37404 EKG Tracing & Interpretation Completed Encounters Type Date Location Provider CPT E/M Dx Office Visit 02/19/2018 [facility] A[facility] Wolf M.D. 83615 S72.352D 8:15a [facility] [place] M79.605 Office Visit 12/18/2017 9:30a [facility] Wolf M.D. 01709 Z48.89 C.MQuanAQuan S72.352D W10.9xxD M79.605 Office Visit 08/30/2017 8:45a [facility] Delores Blanco M.D. 63233 S82.61xD S72.332D M79.605 I10 E11.9 Office Visit 08/24/2017 7:45a [facility], NICOLE Vera 03440 E11.9 Hospitalists R01.1 I10 Office Visit 08/23/2017 7:44a [facility], Calos Leo 16422 E11.9 Hospitalists Elian R01.1 I10 Office Visit 08/23/2017 10:52a [facility] Aida Andersenke, 79469 S82.61xA [place] S72.332A W10.9xxA Office Visit 08/22/2017 7:44a [facility], [place] Leo 91465 E11.9 Hospitalists Elian R01.1 I10 Office Visit 08/22/2017 10:51a [facility] Aida Andersenke, 54502 W10.9xxA [place] S82.61xA S72.332A Office Visit 09/22/2015 4:40p [facility] Shola Reilly M.D. 89472 E11.42 Of C.M.AQuan Office Visit 08/21/2015 9:00a [facility] Shola Reilly M.D. 37642 M72.2 Of C.M.AQuan Office Visit 05/13/2013 9:45a [facility] Janee Lechuga 32926 354.0 Of [facility] M.D. Office Visit 04/23/2013 1:30p [facility] Brittany Ferguson, 81991 354.0 Services Of [employer] Management Consultant M.D. 250.60 357.2 Office Visit 03/22/2013 1:00p [facility] Brittany Ferguson, 63230 250.60 Services Of [employer] Management Consultant M.D. 357.2 354.0 Office Visit 01/16/2013 8:30a [facility] Brittany Ferguson, 10486 250.60 Services Of [employer] Management Consultant M.D. 357.2 354.0 Office Visit 06/15/2012 11:15a [facility] Brittany Ferguson, 83928 250.60 Services Of [employer] Management Consultant M.D. 357.2 Office Visit 03/21/2012 1:00p [facility] Brittany Alvarezvivek, 52113 356.9 Services Of [employer] Management Consultant M.D. Office Visit 09/26/2011 2:30p [facility] Veto Valle, 23819 721.0 Of [employer] Management Consultant M.D. 088.81 356.9 Office Visit 05/06/2008 9:00a [facility] Qutayb S. [facility], 25971 401.0 M.D. 424.0 272.4 250.00 278.00 Office Visit 03/19/2008 10:20a [facility] 17847 272.4 M.D. 401.0 250.00 278.0 794.31 Plan of Care Future Appointment(s):05/21/2018 8:00 am - Aida Wolf M.D. at [facility]02/19/2018 - Aida Wolf M.D.S72.352D Displ commnt fx shaft of l femr, 7thDFollow up:Follow up: 3 dslbdeG59.605 Pain in left leg
[2018-02-28 14:43] VITALS: BP 163/68
--- NOTE | 2018-02-28 15:14 | RAD ---
INDICATION: Right forearm injury COMPARISON: None TECHNIQUE: AP and lateral views were obtained. FINDINGS: There is no acute fracture. There is underlying osteopenia. There is mild soft tissue edema about the forearm. There are vascular calcifications. IMPRESSION: NO ACUTE FRACTURE
--- NOTE | 2018-02-28 15:54 | UC ---
Upper Extremity HPI - HPI Summary HPI Summary: Patient is a 62-year-old male presenting to the with complaint of forearm pain which is just lateral to the right elbow 5 days. She states she fell over a vacuum and landed directly onto the arm 5 days ago. However, she began to notice the pain just approximately 4 days ago. She states she did not have pain immediately following the incident. 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 Patient is right-handed. History of left femur fracture most recently and walks with a cane, using the right arm for the cane. Denies any numbness, tingling, color or temperature changes. - History of Current Complaint Chief Complaint: UCUpperExtremity Stated Complaint: R ARM INJURY Time Seen by Provider: 02/28/18 14:48 Hx Obtained From: Patient Hx Last Menstrual Period: na ?: No Onset/Duration: Sudden Onset Severity Initially: Mild Severity Currently: Mild Pain Intensity: 6 Pain Scale Used: 0-10 Numeric Location Of Pain: Is Discrete @ - right lateral elbow Aggravating Factor(s): Movement, Lifting, Flexion Alleviating Factor(s): Compression Associated Signs And Symptoms: Negative: Swelling, Redness, Bruising, Numbness/ Tingling Related History: Dominant Hand Right - Risk Factors Non-Orthopedic Risk Factor: Negative DVT Risk Factors: Negative Septic Arthritis Risk Factor: Negative Compartment Syndrome Risk Factors: Pain - Allergies/Home Medications Allergies/Adverse Reactions: Allergies Allergy/AdvReac Type Severity Reaction Status Date / Time No Known Allergies Allergy Verified 02/28/18 14:43 Home Medications: Home Medications Atorvastatin* [Lipitor*] 20 mg PO 1700 02/28/18 [History Confirmed 02/28/18] glipiZIDE [Glipizide ER] 10 mg PO DAILY WITH MEAL 02/28/18 [History Confirmed ] PMH/Surg Hx/FS Hx/Imm Hx Previously Healthy: Yes - Surgical History Surgical History: Yes Surgery Procedure, Year, and Place: csections x2, carpal tunnel x2, LEFT FEMUR ORIF AUG 31 - Family History Known Family History: Positive: Other - fractures/ osteo - Social History Occupation: Employed Full-time Lives: With Family Alcohol Use: Rare Substance Use Type: None Smoking Status (MU): Former Smoker When Did the Patient Quit Smoking/Using Tobacco: 15 years ago - Immunization History Most Recent Influenza Vaccination: fall 2016 Most Recent Pneumonia Vaccination: lois Review of Systems Constitutional: Negative Skin: Negative Respiratory: Negative Cardiovascular: Negative Motor: Negative, Other - pain with palpation to the R lateral elbow Neurovascular: Negative Musculoskeletal: Arthralgia Neurological: Negative Is Patient Immunocompromised?: No All Other Systems Reviewed And Are Negative: Yes Physical Exam Triage Information Reviewed: Yes Appearance: Well-Appearing, Well-Nourished Vital Signs: Initial Vital Signs Temp 97.9 F 02/28/18 14:36 Pulse 80 02/28/18 14:36 Resp 22 02/28/18 14:36 BP 163/68 02/28/18 14:36 Pulse Ox 100 02/28/18 14:36 Vital Signs Reviewed: Yes Eye Exam: Normal Eyes: Positive: Conjunctiva Clear Neck exam: Normal Neck: Positive: Supple Respiratory Exam: Normal Respiratory: Positive: Chest non-tender, Lungs clear Cardiovascular Exam: Normal Cardiovascular: Positive: RRR Musculoskeletal: Positive: Strength Intact, ROM Intact Psychological Exam: Normal Psychological: Positive: Normal Response To Family Skin Exam: Normal Upper Extremity Course/Dx - Course Course Of Treatment: X-ray obtained of the right forearm which is negative for fracture. I discussed with the patient due to the tenderness to the right lateral elbow, this is most consistent with lateral epicondylitis. Due to her recent femur fracture, she is now using her right arm for a cane to assist with ambulation. I believe this is an overuse injury as it is also coupled with her repetitive motion job. She is tender to the touch on deep palpation to the right lateral elbow, worse with flexion and extension at the wrist. I've advised ibuprofen, reduction in repetitive movements, and obtaining a lateral epicondylar armband. She is okay with this plan and discharge at this time. Patient is aware of high blood pressure and will follow up with PCP. - Differential Dx/Diagnosis Differential Diagnosis/HQI/PQRI: Arthritis, Bursitis, Contusion, Strain Provider Diagnoses: Right lateral epicondylitis Discharge - Sign-Out/Discharge Documenting (check all that apply): Patient Departure - Discharge Plan Condition: Stable Disposition: HOME Patient Education Materials: Tennis Elbow (ED) Referrals: Benjy Norman MD [Primary Care Provider] - Additional Instructions: Ibuprofen 600mg three times daily ice and heat intermittently for comfort Tennis elbow "wrap" - this is over the counter - Billing Disposition and Condition Condition: STABLE Disposition: Home
== END 2018-02-28 15:30 | disposition home or self-care (01) ==
LOC: UCEAST 14:21
DX: M77.11 Lateral epicondylitis, right elbow (principal); Z87.891 Personal history of nicotine dependence; W01.0XXA Fall on same level from slipping, tripping and stumbling without subsequent striking against object, initial encounter; Y92.9 Unspecified place or not applicable
CPT/HCPCS: 99211; G0463

== ENCOUNTER 2018-04-10 08:09 | Inpatient (IN) | payer BC ==
[~2018-04-10 08:09] MED LIST: Buffered Lidocaine 0.9% SYRIN* 5 ML/SYR SYRINGE INTRADERM ONE; Dexamethasone IV* 4 MG/ML 1 ML (4 MG) IV SLOW PU ONE; Famotidine IV* 10 MG/ML 2 ML (20 mg) IV ONE
--- OUTSIDE RECORDS SUMMARY | 2018-04-10 08:14 | XMS REPORT ---
:1955 External Reference #:[id number] Author Organization [facility] Address [address] [place] [address] Phone [phone] Care Team Providers Name Role Phone Benjy Norman MD Primary Care Physician Unavailable Payers Type Date Identification Numbers Payment Provider Subscriber Commercial Effective: Policy Number: BS [employer] Dotty Mario Alberto Laws 2012 [id number] PayID: [id number] [address] [address] [place] [id number] Medigap Part B Effective: Policy Number: [facility] Dotty Mario Alberto 2005 [id number] Veto Expires: 2012 PayID: [id number] [address] [address] [place] [address] Problems Date Description Provider Status Onset: 04/30/2012 Mitral valve disorder [place] [facility] Schedule Active Onset: 04/30/2012 Heart murmur [facility] Schedule Active Onset: 10/06/2017 Displ commnt fx lisa lester, D Aida Wolf M.D. Active Family History Date Family Member(s) Problem(s) Comments General Diabetes General Heart Disease General Hypertension General Cancer : (age 69 Years) Father due to MD Mother history unknown First Brother in good [...] Form Strength Qnty SIG Indications Ordering Provider Percocet 03/30/ Active Tablets 5-325mg 45tab 1 by S72.352D Aida 2017 s mouth Luciano, every 6 M.D. hours as needed pain Metformin HCL / Active Tablets 500mg 1 [...] 500mg 60cap 1 capsule S72.352D Aida 2017 - by mouth Luciano, 12/18/ every 6 M.D. 2018 hours Aspirin 09/20/ Hx Tablets DR 325mg 60tab take 1 by Aida 2017 - mouth Luciano, 12/18/ once a M.D. 2018 day for two weeks Percocet 08/25/ Hx Tablets 5-325mg 90tab one- two Aida 2017 - s tablets Luciano, 12/18/ every 4-6 M.D. 2018 hours as needed for pain Gabapentin 09/22/ Hx Capsules 300mg 60cap take 1 E11.42 Shola 2015 - s capsule Tommie, 12/18/ by mouth M.D. 2018 at night Gabapentin 06/15/ Hx Tablets 600mg 90tab 1 - 3 Toni Goncalves 2011 - s tabs Silvia, 08/20/ daily as M.D. 2016 directed Lisinopril 05/06/ Hx Tablets 20mg 45tab 1 tab po Qutaybeh 2007 - pm S. 12/18/ Niko 2018 Elian Lisinopril 03/13/ Hx Tablets 20mg 90tab 1 PO qd Qutaybeh 2007 - S. 05/06/ Magmilan 2007 Elian Crestor 03/13/ Hx Tablets 10mg 1 PO qd Qutaybeh 2007 - . 01/16/ Niko 2012 Elian Metaglip 03/13/ Hx Tablets 5-500mg 120ta 1 tab po Qutaybeh 2007 - bs Am S. Niko Rivera M.D. Vitamin E 03/13/ Hx Capsules 400Unit 1 PO qd Qutaybeh 2007 - S. 01/16/ Niko 2013 Elian Lipitor / Hx Tablets 20mg one tab Unknown 0000 - by mouth 2017 night at bedtime Colace / Hx Unknown 0000 - 2017 Cyclobenzaprine / Hx Unknown HCL 0000 - 2017 Humalog / Hx Unknown 0000 - 2017 Lovenox / Hx Solution 30mg/0.3ML inject Unknown 0000 - 0.3ml 2017 twice a day Oxycodone HCL / Hx Capsules 5mg 1-2 tabs Unknown 0000 - by mouth every 4-6 2018 hours as needed pain Vital Signs Date Vital Result Comment 03/30/2018 Height 60 inches 5'0" Weight 180.00 lb Heart Rate 92 /min BP Systolic 170 mmHg BP Diastolic 80 mmHg BMI (Body Mass Index) 35.1 kg/m2 02/19/2018 Height 60 inches 5'0" Heart Rate [...] Procedures Date CPT Code Description Status 08/23/2017 47971 CLSD TX Distal Fib FX (Lateral Malleolus) w/o Completed manipulation 08/23/2017 98536 CLSD TX Distal Fib FX (Lateral Malleolus) w/o Completed manipulation 08/23/2017 10138 Open TX Femoral Shaft FX W/Plates & Screws W Or W/O Completed [place] 08/23/2017 85602 Open TX Femoral Shaft FX W/Plates & Screws W Or W/O Completed [place] 08/22/2017 67275 ECHO Transthorasic Realtime 2D W Doppler & Color Flow Completed Hosp 03/02/2016 54899 ECHO Transthoracic, Real-Time 2D With Doppler And Color Completed Flow 04/23/2013 97413 Nerve Conduction 09-10 Studies Completed 04/23/2013 86102 Nerve Conduction 07-08 Studies Completed 04/30/2012 62355 ECHO Transthoracic, Real-Time 2D With Doppler And Color Completed Flow 03/21/2012 58813 Nerve Conduction, Sensory Completed 03/21/2012 45849 Nerve Conduction, Motor W/F-Wave Study Completed 04/08/2008 31036 Stress Test Completed 04/08/2008 10691 Stress Test Completed 04/08/2008 02052 ECHO/Stress Completed 04/01/2008 91389 Color Doppler Completed 04/01/2008 54374 Color Doppler Completed 04/01/2008 72330 Color Doppler Completed 04/01/2008 59109 Pulse Doppler & Continuous Wave Completed 04/01/2008 94878 Pulse Doppler & Continuous Wave Completed 04/01/2008 98114 Echocardiogram Completed 04/01/2008 19746 Echocardiogram Completed 04/01/2008 30009 Echocardiogram Completed 03/19/2008 88911 EKG Tracing & Interpretation Completed Encounters Type Date Location Provider CPT E/M Dx Office Visit 03/30/2018 [facility] Aida Wolf M.D. 61670 S72.352D 10:30a [facility] [place] M79.605 Office Visit 02/19/2018 8:15a [facility] Aida Wolf 68753 S72.352D [place] M79.605 Office Visit 12/18/2017 9:30a [facility] Aida Wolf M.D. 35142 Z48.89 C.Minda S72.352D W10.9xxD M79.605 Office Visit 08/30/2017 8:45a [facility] Delores Blanco M.D. 97908 S82.61xD S72.332D M79.605 I10 E11.9 Office Visit 08/24/2017 7:45a [facility], NICOLE Vera 09353 E11.9 Hospitalists R01.1 I10 Office Visit 08/23/2017 7:44a [facility], Calos Leo 10234 E11.9 Hospitalists Elian R01.1 I10 Office Visit 08/23/2017 10:52a [facility] Aida Wolf 98582 S82.61xA [place] S72.332A W10.9xxA Office Visit 08/22/2017 7:44a [facility], [place] Leo 47862 E11.9 Hospitalists Elian R01.1 I10 Office Visit 08/22/2017 10:51a [facility] Aida Wolf, 44443 W10.9xxA [facility] [place] S82.61xA S72.332A Office Visit 09/22/2015 4:40p [facility] Shola Reilly M.D. 98206 E11.42 Of [facility] Office Visit 08/21/2015 9:00a [facility] Shola Reilly M.D. 01342 M72.2 Of [facility] Office Visit 05/13/2013 9:45a [facility] Janee Lechuga 88622 354.0 Of [employer] [employer] [facility] [place] M.D. 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 250.60 357.2 Office Visit 03/22/2013 1:00p [facility] Brittany Ferguson, 89313 250.60 Services Of [employer] Saw Operator M.D. 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 Office Visit 09/26/2011 2:30p [facility] Veto Valle, 06099 721.0 Of [employer]ilting Saw Operator M.D. 088.81 356.9 Office Visit 05/06/2008 9:00a [facility] Hannahtaangelina Pope, 92136 401.0 M.D. 424.0 272.4 250.00 278.00 Office Visit 03/19/2008 10:20a [facility] Hannahtaangelina Pope, 34737 272.4 M.D. 401.0 250.00 278.0 794.31 Plan of Care Future Appointment(s):04/03/2018 1:00 pm - Manuel Cerda MD at [facility]03/30/2018 - Aida Wolf M.D.S72.352D Displ commnt fx shaft of l femr, 7thDNew Medication:Percocet 5-325 mgFollow up:Follow up: next week with QbcaclxG79.605 Pain in left legNew Xrays:Femur Left
[2018-04-10] MEDS ORDERED: Dexamethasone IV* 4 MG/ML 1 ML (4 MG) ONE (08:31)
[2018-04-10] MEDS ORDERED: ceFAZolin 2 GM PREMIX in ORs 2 GM/50 ML BAG IVPB ONE ×2 (08:31→17:45)
[2018-04-10] MEDS ORDERED: Famotidine IV* 10 MG/ML 2 ML (20 mg) ONE (08:31)
[2018-04-10 09:51] LABS: EGFR Non-African American 117.3 (>60)
[2018-04-10] MEDS ORDERED: Midazolam* 1 MG/ML 5 ML VIAL (5 MG) ONE (10:31)
[2018-04-10] MEDS ORDERED: fentaNYL* 50 MCG/ML 2 ML VIAL (100 MCG VIAL) ONE ×5 (10:31→18:28)
[2018-04-10] MEDS ORDERED: Ondansetron INJ* 2 MG/ML VIAL ONE ×2 (10:44→17:24)
[2018-04-10] MEDS ORDERED: Propofol* 10 MG/ML 20 ML BTL IV PUSH ONE (10:44)
[2018-04-10] MEDS ORDERED: Ketorolac INJ* 30 MG/ML 1 ML VIAL ONE (10:44)
[2018-04-10] MEDS ORDERED: ROPIVACAINE 5 MG/ML 30 ML BTL (0.5%) ONE ×2 (11:03→11:16)
[2018-04-10] MEDS ORDERED: Lidocaine 2% PF * 5 ML VIAL ONE (11:50)
[2018-04-10] MEDS ORDERED: HYDROmorphone INJ* 0.5 MG/0.5 ML SYRINGE IV PRN (12:43)
[2018-04-10] MEDS ORDERED: oxyCODONE/Acetamin 5/325 MG* TAB PO PRN ×2 (12:43→17:41)
[2018-04-10] MEDS ORDERED: Naloxone* 0.4 MG/ML 1 ML VIAL IV PRN (12:43)
[2018-04-10] MEDS ORDERED: EPHEDrine (Pressors)* 50 MG/ML VIAL ONE (13:48)
[2018-04-10] MEDS ORDERED: Magnesium Hydroxide LIQ* 30 ML UDC PO PRN (17:38)
[2018-04-10] MEDS ORDERED: DiMENhydriNATE IV* 50 MG/ML VIAL IV PUSH ONE (17:40)
[2018-04-10] MEDS ORDERED: diPHENhydraMINE IV* 50 MG/ML 1 ml VIAL (BENADRYL) IV PRN (17:41)
[2018-04-10] MEDS ORDERED: Bisacodyl SUPP* 10 MG SUPP PR PRN (17:41)
[2018-04-10] MEDS ORDERED: Polyethylene Glycol 3350* 17 GM PACKET PO PRN (17:41)
[2018-04-10] MEDS ORDERED: Morphine INJ* 2 MG/ML 1 ML SYRINGE (TWO MG - NEW SYRINGE VERSION) IV PRN (17:41)
[2018-04-10] MEDS ORDERED: Scopolamine 1.5 mg* PATCH ONE (17:42)
[2018-04-10] MEDS ORDERED: DiMENhydriNATE IV* 50 MG/ML VIAL ONE (17:51)
[2018-04-10] MEDS ORDERED: Scopolamine 1.5 mg* PATCH TRANSDERM SCH (18:00)
[2018-04-10] MEDS ORDERED: ceFAZolin* 2 GM in NS 100 MLS Q8HR IVPB ONE (18:00)
[2018-04-10] MEDS ORDERED: Lisinopril TAB* 10 MG PO SCH (18:00)
[2018-04-10] MEDS ORDERED: Dextrose 50% Syringe 50 ML* 25 GM/50 ML SYRINGE IV PUSH PRN ×2 (18:27→23:34)
[2018-04-10] MEDS: fentaNYL* 50 MCG/ML 2 ML VIAL (100 MCG VIAL) IV PRN ×2 (18:30→19:52)
[2018-04-10] MEDS ORDERED: Insulin LISPRO* 1 UNITS UNIT SUBCUT ONE ×2 (18:40→23:34)
[2018-04-10] MEDS: Insulin LISPRO* 1 UNITS UNIT SUBCUT SCH (18:41)
[2018-04-10] MEDS: Magnesium Hydroxide LIQ* 30 ML UDC PO SCH (21:03)
[2018-04-10] MEDS: Docusate CAP* 100 MG PO SCH (21:03)
--- NOTE | 2018-04-10 21:33 | CONS ---
CC: Dr. Benjy Norman; Dr. Manuel Cerda * CONSULTATION REPORT: DATE OF CONSULT: 04/10/18 PRIMARY CARE PROVIDER: Dr. Benjy Norman. PHYSICIAN REQUESTING CONSULTATION: Dr. Manuel Cerda. ATTENDING PHYSICIAN: Dr. Epi Mason (dictated by Kasia Baker NP). REASON FOR CONSULT: Co-medical management in a patient with a history of diabetes mellitus, hypertension. HISTORY OF PRESENT ILLNESS: Ms. Laws is a 62-year-old female with past medical history significant for diabetes mellitus, hypertension, hypercholesterolemia, osteoarthritis, history of Lyme disease, systolic heart murmur, obesity, nontoxic multinodular goiter, Tanner's esophagus, who over 8 months ago had an ORIF of a comminuted left distal femur fracture with a lateral locking plate, who presented for followup to Dr. Cerda with a diagnosis of a nonunion and failure of hardware. The patient initially was injured falling down the stairs in August 2017, twisting her ankle. The patient was found to have a spiral fracture. She underwent an ORIF of her left distal femur fracture having a long lateral fracture plate placed over the distal femur. The fracture was found to be significantly comminuted intraoperatively and a lateral locking plate was placed. Several days postoperatively, the patient was discharged to rehab. She was recovering uncomplicated and bearing weight as tolerated. She returned to work at the beginning of February 2018. She had a fall around 02/23/18 with no left leg pain. The following week, the patient fell again having no pain. She worked for an additional month without any symptoms. On 03/28/18, the patient suddenly developed pain while at work. The pain got progressively worse throughout the course of the day. She was seen in the clinic by Dr. Wolf. Since developing the initial pain, she has had severe pain with any weightbearing of her left lower extremity and has been nonweightbearing. The patient underwent an elective left distal femur ORIF with lateral locking plate, removal of hardware and left iliac crest bone graft harvest today with Dr. Cerda. The patient reports being in her usual state of health other than left lower extremity pain. She denies any recent fevers, chills, chest pain, shortness of breath, nausea, vomiting, diarrhea, urinary symptoms such as urgency or frequency. Hospitalists were asked to assist with co-medical management of this patient during her hospitalization. PAST MEDICAL HISTORY: 1. Diabetes mellitus. 2. Hypertension. 3. Hypercholesterolemia. 4. Osteoarthritis. 5. Lyme disease. 6. Systolic murmurs associated with her mitral valves. 7. Tanner's esophagus. 8. Obesity. 9. Nontoxic multinodular goiter. PAST SURGICAL HISTORY: 1. Status post bilateral carpal tunnel release. 2. Status post section x2. 3. Status post left distal femur ORIF. HOME MEDICATIONS: Include: 1. Metformin 1000 mg oral twice daily. 2. Glipizide 10 mg oral daily. 3. Atorvastatin 20 mg oral daily. 4. Lisinopril 40 mg oral daily. 5. Vitamin D 1000 units oral daily. 6. Percocet 5/325 one tablet oral twice daily as needed for pain. ALLERGIES: No known drug allergies. FAMILY HISTORY: The patient's father had a history of diabetes mellitus and heart disease. She also has a family history of cancer. 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 She is a former smoker, quitting approximately 15 years ago, prior to that she had 1 pack-a-day smoking history for 20 years. She rarely drinks alcohol. Denies recreational drug use. Her daughter, Sandra Dos Santos, will be her surrogate decision maker in the event she is unable to make decisions for herself. REVIEW OF SYSTEMS: I performed an 11-point review of systems. All the pertinent positives and negatives are mentioned in the history of present illness. The remaining review of systems are negative. PHYSICAL EXAM: Vital Signs: Temperature 97.2, heart rate 95, respiratory rate 16, O2 sat 100% on room air, blood pressure 157/83. General Appearance: The patient is alert, pleasant, and appears to be in no acute distress. HEENT: Normocephalic, atraumatic. Pupils are equal and reactive to light. Extraocular movements are intact. Respiratory: There is no accessory muscle use. The lungs are clear to auscultation bilaterally. Cardiovascular: Regular rate and rhythm. S1, S2 present. She has a grade 2/6 systolic murmur heard throughout the pericardium. There are no rubs or gallops heard. Abdomen: Soft, nontender, large, nondistended. There are bowel sounds present x4. Extremities: There is no lower extremity edema. DP and PT pulses are 2+ and symmetric. Musculoskeletal: There is no clubbing or cyanosis noted. The patient exhibits good strength in all extremities. Neurological: The patient is alert and oriented x4. Cranial nerves II through XII are grossly intact. Psychological: The patient is calm and cooperative. Skin: There are no rashes or abnormalities. The patient has a dressing from her left foot to her left thigh that is clean, dry and intact. DIAGNOSTIC STUDIES/LAB DATA: Preoperative labs from 04/04/18 show a white blood cell count of 8.9, hemoglobin 12.7, hematocrit 38, platelet count 342. Preop labs from today show a sodium of 140, potassium 4.1, chloride 107, CO2 of 26, BUN 15, creatinine 0.53, glucose 101. IMPRESSION: Ms. Laws is a 62-year-old female with past medical history significant for diabetes mellitus, hypertension, hypercholesterolemia, osteoarthritis, Lyme disease, systolic murmur associated with her mitral valves , Tanner's esophagus, obesity, nontoxic multinodular goiter, who presented to the hospital for an ORIF of her distal left femur with locking plate, removal of hardware and iliac crest bone graft harvest. Hospitalists were asked to assist with co-medical management of this patient during her hospitalization. ASSESSMENT/PLAN: 1. Distal left femur fracture. The patient is status post left distal femur removal of hardware, ORIF with lateral locking plate and left iliac crest bone graft harvest. Postop day management will be per Orthopedic Surgery. She will have pain management and will be placed on a bowel regimen. She will have physical therapy and occupational therapy. She will be nonweightbearing to her left lower extremity. 2. Diabetes mellitus. The patient has had hyperglycemia in the PACU. I am going to hold her glipizide and metformin and place her on a lispro sliding scale. She can resume her oral diabetic medications at discharge. According to her primary care provider's notes, her last hemoglobin A1c was 6.6. 3. Hypertension. The patient has been mostly normotensive today. I am going to hold her lisinopril overnight. This can likely be resumed tomorrow as long as her blood pressure allows. 4. Hypercholesterolemia. The patient will be continued on her home atorvastatin. 5. Obesity, BMI of approximately 34. 6. Fluids, electrolytes, and nutrition: She will be on a clear liquid advanced diet as tolerated to consistent carbohydrate diet. 7. Code status: Full code. 8. DVT prophylaxis: The patient will be on Lovenox per Orthopedic Surgery. 9. Disposition: Inpatient with disposition per Orthopedic Surgery. Thank you for this consultation. We will continue to follow along. TIME SPENT: Time for this admission was approximately 60 minutes, greater than half of that was spent with the patient discussing medications, past medical history, the events leading up to her arrival today, and performing a physical examination. The case has been reviewed with the attending, Dr. Mason, who agrees with the plan of care. Reviewed by BERT LASSITER-Dheeraj 04/15/18 [id number]/CPS #: [id number] ALEX
[2018-04-10] MEDS: oxyCODONE TAB* 5 MG TAB PO PRN (22:13)
[2018-04-10] MEDS: Acetaminophen TAB* 325 MG PO SCH (22:13)
[2018-04-11] MEDS: ceFAZolin 1 GM ADVAN(*) 1 GM in NS 0.9% 50 ML* 50 ML IVPB SCH ×3 (02:43→17:51)
[2018-04-11] MEDS: oxyCODONE TAB* 5 MG TAB PO PRN ×4 (05:34→19:19)
[2018-04-11] MEDS: Acetaminophen TAB* 325 MG PO SCH ×3 (05:34→21:40)
[2018-04-11 05:37] LABS: Hematocrit 20 % (35-47); Hemoglobin 6.8 g/dl (12.0-16.0); Mean Platelet Volume 7.9 um3 (7.4-10.4); Platelet Count 218 10^3/ul (150-450)
[2018-04-11 05:53] LABS: EGFR Non-African American 89.5 (>60)
[2018-04-11] MEDS ORDERED: Enoxaparin(*) 40 MG/0.4 ML SYR SUBCUT SCH (06:00)
--- NOTE | 2018-04-11 07:42 | RAD ---
INDICATION: ORIF left femur COMPARISON: Left femur March 30, 2018 TECHNIQUE: AP and lateral views were obtained. FINDINGS: The fractured cortical plate has been revised. There is no current evidence of hardware failure. There is mild healing reactive change about the femoral fracture. IMPRESSION: REVISION OF THE CORTICAL PLATE.
--- NOTE | 2018-04-11 08:12 | RAD ---
INDICATION: ORIF revision COMPARISON: March 30, 2018 FINDINGS: 22.7 seconds of fluoroscopy were provided for the orthopedics department. Fluoroscopic spot imaging of the left femur were obtained for operative control. CPT II Codes: G9500 (fluoro time doc)
[2018-04-11] MEDS: Insulin LISPRO* 1 UNITS UNIT SUBCUT SCH ×3 (08:33→17:08)
[2018-04-11] MEDS: Magnesium Hydroxide LIQ* 30 ML UDC PO SCH ×2 (08:33→21:40)
[2018-04-11] MEDS: Docusate CAP* 100 MG PO SCH ×2 (08:34→21:40)
--- NOTE | 2018-04-11 10:30 | PN ---
Progress Note - Progress Note Date of Service: 04/11/18 SOAP: Subjective: [] Patient seen at bedside. She feels well with well controlled LLE pain. Denies CP, SOB, dizziness, lightheadedness, fatigue, nausea. Objective: []General: Well appearing, NAD LLE: Immobilizer in place. DF/PF intact. Able to wiggle toes. Sensation intact and capillary refill less than two seconds distally. BL calves supple and nontender Assessment: []ORIF of left femoral sharft nonunion Plan: []NWB LLE PT/OT lovenox DVT prophylaxis As patient is asymptomatic I will repeat her H&H and if values are correct will transfuse 1 unit PRBC, patient in agreement Vital Signs Temp 98.0 F 04/11/18 07:39 Pulse 81 04/11/18 07:39 Resp 20 04/11/18 10:07 BP 107/43 04/11/18 07:39 Pulse Ox 99 04/11/18 07:39 Intake & Output 04/10/18 04/11/18 04/11/18 18:59 06:59 18:59 Intake Total 2750 715 120 Output Total 700 400 200 Balance 2049 315 -80 Weight 177 lb Intake: IV Fluids 2750 200 LR 2700 200 NS 50ML, Cefazolin 2G 50 IVPB 55 ABX - CEFAZOLIN 55 Oral 460 120 Output: Urine 400 200 [place] 700 Other: Estimated Void Small Estimated Blood Loss 300 Comment # Voids 1 Laboratory Last Values Hgb 6.8 g/dl (12.0-16.0) L 04/11/18 05:23 Hct 20 % (35-47) L 04/11/18 05:23 Plt Count 218 10^3/ul (150-450) 04/11/18 05:23 MPV 7.9 um3 (7.4-10.4) 04/11/18 05:23 APTT 27.4 seconds (26.0-36.3) 04/10/18 09:09 Sodium 136 mmol/L (135-145) 04/11/18 05:23 Potassium 4.2 mmol/L (3.5-5.0) 04/11/18 05:23 Chloride 103 mmol/L (101-111) 04/11/18 05:23 Carbon Dioxide 27 mmol/L (22-32) 04/11/18 05:23 Anion Gap 6 mmol/L (2-11) 04/11/18 05:23 BUN 20 mg/dL (6-24) 04/11/18 05:23 Creatinine 0.67 mg/dL (0.51-0.95) 04/11/18 05:23 Est GFR ( Amer) 108.3 (>60) 04/11/18 05:23 Est GFR (Non-Af Amer) 89.5 (>60) 04/11/18 05:23 BUN/Creatinine Ratio 29.9 (8-20) H 04/11/18 05:23 Glucose 223 mg/dL (70-100) H 04/11/18 05:23 POC Glucose (mg/dL) 180 mg/dL (70-100) H 04/11/18 07:33 Calcium 8.2 mg/dL (8.6-10.3) L 04/11/18 05:23 Total Bilirubin 0.50 mg/dL (0.2-1.0) 04/10/18 09:09 AST 14 U/L (13-39) 04/10/18 09:09 ALT 12 U/L (7-52) 04/10/18 09:09 Alkaline Phosphatase 91 U/L (34-104) 04/10/18 09:09 Total Protein 6.6 g/dL (6.4-8.9) 04/10/18 09:09 Albumin 3.9 g/dL (3.2-5.2) 04/10/18 09:09 Globulin 2.7 g/dL (2-4) 04/10/18 09:09 Albumin/Globulin Ratio 1.4 (1-3) 04/10/18 09:09 Blood Type B Negative 04/10/18 09:09 Antibody Screen Negative 04/10/18 09:09
[2018-04-11 11:03] LABS: Hematocrit 20 % (35-47); Hemoglobin 6.6 g/dl (12.0-16.0)
[2018-04-11 15:12] LABS: Hematocrit 22 % (35-47); Hemoglobin 7.5 g/dl (12.0-16.0)
[2018-04-11] MEDS: Atorvastatin* 20 MG TAB PO SCH (17:08)
[2018-04-12] MEDS: oxyCODONE TAB* 5 MG TAB PO PRN ×3 (00:17→21:32)
--- NOTE | 2018-04-12 02:39 | OP ---
DATE OF OPERATION: 04/10/18 - ROOM #346 DATE OF : 57 SURGEON: Manuel Cerda MD OPERATIONS ENGINEER: NICOLE Benitez. A physician elementary assistant principal was required for assistance with positioning, retraction, instrumentation, and closure. ANESTHESIOLOGIST: Satya De León MD ANESTHESIA: General anesthesia, regional nerve block, femoral nerve block, local anesthesia with 10 cc of ropivacaine 0.5% with epinephrine. PRE-OP DIAGNOSES: 1. Nonunion, left distal femur fracture, displaced, comminuted. 2. Failure and breakage of hardware, left distal femur, lateral locking plate. 3. Status post open reduction internal fixation left distal femur with a lateral locking plate on 08/23/17. POST-OP DIAGNOSES: 1. Nonunion, left distal femur fracture, displaced, comminuted. 2. Failure and breakage of hardware, left distal femur, lateral locking plate. 3. Status post open reduction internal fixation left distal femur with a lateral locking plate on 08/23/17. OPERATIVE PROCEDURE: 1. Open reduction internal fixation, treatment, of a nonunion of the left distal femur. 2. Left iliac crest bone harvest. 3. Removal of hardware, deep, left femur lateral locking plate and wires. 4. Manipulation of the left knee under anesthesia. ANTIBIOTICS: Ancef 2 g IV just prior to incision. Ancef 2 g IV was also given in the PACU given the length of the case. IV FLUIDS: 2700 cc crystalloid. TOURNIQUET TIME: Zero minutes. VPLU-ZV-GPAZ TIME: 288 minutes (4 hours and 48 minutes). IRRADIATION: Large C-arm, 22 seconds. 0.044 mGy m2. SPECIMEN: Specimen were provided for frozen pathology. Results were obtained intraoperatively and showed less than 1 neutrophil per high powered field. These results were obtained prior to placing new hardware. I also obtained Gram -stain and culture samples intraoperatively. I also removed a Synthes lateral locking plate and multiple screws as well as multiple wires, cerclage. Two screws had broken and were left in the proximal femoral canal. IMPLANTS: Long lateral locking plate, Synthes, LCP, using nonlocking and locking 4.5 mm and 5 mm screws through it. I also placed two 3.5 mm screws, fully threaded, using lag technique from a lateral butterfly fragment to the major proximal piece of bone. Three times 5 cc of cancellous allograft. URINE OUTPUT: 700 cc. ESTIMATED BLOOD LOSS: Difficult to say. Very minimal bleeding but long length of procedure. Perhaps 250 cc. COMPLICATIONS: None. 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 The patient also had closed management of a contralateral right ankle stable fracture at that time. Postoperatively, the patient progressed along in her rehabilitation, gaining strength and range of motion. 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 On , the patient suddenly developed pain at work which got quite severe and the patient was unable to leave the house to go to work. She presented to clinic and x-rays demonstrated a broken plate as well as some broken screws at least one, most proximal. The patient did not have any evidence by x-ray imaging also of healing at the fracture site. I saw the patient in my clinic on 04/03/18. Noted that the patient has history of diabetes mellitus. I ordered a CT scan to better evaluate the fracture. CT scan showed excellently reduced fracture, but no significant healing in any of the fracture line sites. I obtained inflammatory labs which showed no sign of infection. Albumin was normal as was the patient's vitamin D level. I was working up possible causes of nonunion. We booked the patient for a procedure, removal of hardware, manipulation of knee under anesthesia and repair of nonunion using iliac crest bone graft. I added the manipulation under anesthesia because I noted at the patient's clinic visit that her range of motion left knee was only 0 to 90 degrees of flexion. I was impressed that the patient was able to do a straight leg raise in clinic also despite her union being just fibrous. I discussed risks and potential complications of surgery with the patient including bleeding, infection, nerve or blood vessel injury, knee pain, stiffness, osteoarthritis, nonunion, failure of hardware, hematoma and iliac crest bone harvest at the site, pain and nerve and blood vessel injury at iliac crest harvest site. DESCRIPTION OF PROCEDURE: Written consent signed in preoperative holding. Operative extremity was marked in the preoperative holding. The patient was taken back to the operating room and placed supine on radiolucent table. The patient was sedated and intubated. We prepped and draped the left lower extremity, including left iliac crest in the surgical field. Prior to prep and drape we had to use foam tape to move pannus away from the site of the left iliac crest. No tourniquet was applied. It was going to be sterile tourniquet that could be used as needed. It was never used. Surgical time-out was performed. Ioban had been placed all along the prepped and draped skin. I made a surgical incision along the lateral thigh. I retraced the scar from the prior surgery starting just proximal to Gerdy's tubercle and moving proximally 2[address] from distal to proximal up the thigh. I exchanged knives. I encountered the iliotibial band. I cleared some tissue off of it. No permanent sutures were visible. I split the iliotibial band in the course of its fibers and retracted it. Encountered vastus lateralis. I peeled this anteriorly and dissected down to plate. I next removed some fibrous tissue from about the fracture sites. I sent that off for frozen pathology. I also used swabs for Gram Stain and culture analysis. I next went about removing the hardware. I removed the wires after having cut them. I removed screws and plate. It turned out that 2 of the screws had broken, the 2 most proximal in the plate. I therefore left the most of the body of screws in the femur. We removed the fibrous tissue and then it filled up along the undersurface of the plate from the superficial aspect of the femur. At first it seemed that the femur was stable. It took some time to identify the fracture planes. There was fibrous tissue in them and no bony healing. I debrided between the different fracture fragments. There was also some fibrous tissue intramedullary that I debrided. The fracture was principally spiral, but there was also a large lateral butterfly fragment. There was a smaller butterfly fragment anteriorly and some additional comminution. Irrigation. I next placed wet sponges in the wound and moved to the iliac crest. I identified a point 2 cm posterior to the ASIS on the iliac crest by palpation. I made an incision of approximately of 6 cm. In the skin, this is along the iliac crest. I exchanged knives and dissected through subcutaneous tissue with dissection scissors. I then made a fascial incision in line with the skin incision. I dissected down to the superior surface of the iliac crest. After obtaining frozen pathology, Gram Stain and cultures and before removing hardware, I performed a manipulation under anesthesia. The patient initially had 0 to 90 degrees of flexion. I performed some manipulation and was able to improve the range of motion to 0 to 110 degrees of flexion. There was a hard block at 110 and I was unable to flex her additionally. It was remarkable how I was able to do this manipulation without there being a movement at the fracture site. This speaks to the relative strength and the patients fibrous union at that location, although certainly a nonunion and insufficient for activities of daily living. Using osteotomes, I removed traction of the hand table, cortical bone. I used curettes to remove cancellous bones from between the two tables at the iliac crest. I placed that for safety, keeping it on back table. I next closed this incision. I closed 2 separate layers of fascia using [id number] stitches using Ethibond 2 suture. We then closed the subcutaneous tissue and buried simple stitches using Vicryl 2-0 suture. Staple closure of the skin. We returned to the left lateral thigh. Obtaining a reduction was very difficult at first. I decided to stabilize the proximal fragment by using 2 nonlocking screws between the lateral butterfly fragment and the remainder as a large proximal fragment. I counter-sunk these screw heads so that they would not interfere with plate placement. I was happy with the reduction, although it was not perfect. I still struggle to reduce proximal and distal fragments. I therefore decided to place the plate distally and then to reduce at the fracture sites. I next placed the plate into the same distal holes that had been used previously , same screws. It should be said that by this point, the frozen pathology had come back as negative for infection. There was no intraoperative sign of infection either. New plate was applied distally with the same length of screws through the screw holes. With the plate attached distally, I then re- reduced the fracture site and placed several nonlocking screws proximally to obtain and maintain reduction. Initially the plate was slightly proud proximally but some nonlocking screws brought it nicely to bone. I added some locking screws along the femur close to and far from the fracture site. I had to advance my skin incision further proximal to accommodate a plate that was too longer. The plate almost reached the lesser trochanter proximally. Irrigation: I took my cortical bone from the inner table. It was quite flimsy quality and so I cut it up into small pieces. I combined that with the cancellous autograft. I combined this with 3 containers of 5 cc of cancellous allograft. I next placed all of this bone graft into the fracture site where there was an opening where there had been a smaller piece of comminution. This completely filled the medullary canal at that point as well as the defect of the cortical bone in that location. It required substantial amount of autograft and allograft. I was very happy with it. We next closed the vastus lateralis layer with [id number]-[id number] stitches using Vicryl 0 suture. We closed the iliotibial band with [id number]-[id number] stitches using Vicryl 0 suture. We closed the subcutaneous tissue with buried simple stitches using Vicryl 2-0 suture. We closed the skin with saroj. We cleaned well the skin about the surgical incisions. We placed some local anesthesia, 10 cc about the iliac crest bone harvest site. Xeroform over both surgical incision sites, 4x4s, ABDs, foam tape and Andrews bandages. The left knee was placed in the knee immobilizer. The patient was awakened and extubated. DISPOSITION: The patient was admitted to my service on the floor. Chemistries were to be checked, daily hemoglobin and hematocrit. X-rays were obtained in PACU. The patient will be on Lovenox for 4 weeks postoperatively. She will have pain control with oral and IV narcotics. Ancef for 1 day postoperatively q. 8 hours. The patient will follow up in the clinic with me in approximately 2 weeks. We will hold off on physical therapy as I want the bone graft to have a chance to incorporate before she starts moving her knee. I anticipate starting physical therapy to get the knee moving at 1 to 2 weeks postoperative. [id number]/[facility] #: [id number] ALEX
[2018-04-12] MEDS: Acetaminophen TAB* 325 MG PO SCH ×3 (05:31→21:36)
[2018-04-12 05:41] LABS: Hematocrit 23 % (35-47); Hemoglobin 7.7 g/dl (12.0-16.0); Mean Platelet Volume 8.1 um3 (7.4-10.4); Platelet Count 192 10^3/ul (150-450)
[2018-04-12] MEDS: oxyCODONE/Acetamin 5/325 MG* TAB PO PRN ×2 (09:27→18:11)
[2018-04-12] MEDS: Insulin LISPRO* 1 UNITS UNIT SUBCUT SCH ×3 (09:29→18:11)
[2018-04-12] MEDS: Magnesium Hydroxide LIQ* 30 ML UDC PO SCH ×2 (09:35→21:36)
[2018-04-12] MEDS: Docusate CAP* 100 MG PO SCH ×2 (09:35→21:36)
--- NOTE | 2018-04-12 11:49 | PN ---
Progress Note - Progress Note Date of Service: 04/12/18 SOAP: Subjective: []Patient seen at bedside. She is feeling well with well controlled LLE pain. She has not yet been up out of bed due to low H&H yesterday. Denies chest pain, shortness of breath, dizziness, nausea or lightheadedness.She received 1 unit PRBC yesterday which she tolerated well and H&H is improved today. Objective: []General: Well appearing, NAD LLE: Immobilizer in place. DF/PF intact. Able to wiggle toes. Sensation intact and capillary refill less than two seconds distally. Dressing changed. Incisions are CDI without erythema or discharge. BL calves supple and nontender Assessment: []ORIF of left femoral sharft nonunion Plan: []NWB LLE PT/OT lovenox DVT prophylaxis Continue to follow H&H, consider holding lovenox if HGB below 7. Vital Signs Temp 98.4 F 04/12/18 07:47 Pulse 95 04/12/18 07:47 Resp 20 04/12/18 09:27 BP 123/53 04/12/18 07:47 Pulse Ox 96 04/12/18 07:47 Intake & Output 04/11/18 04/12/18 04/12/18 18:59 06:59 18:59 Intake Total 806 1148 450 Output Total 625 550 200 Balance 181 598 250 Intake: IV Fluids 326 998 ABX - CEFAZOLIN 50 LR 998 blood 276 Oral 480 150 450 Output: Urine 625 550 200 Laboratory Last Values Hgb 7.7 g/dl (12.0-16.0) L 04/12/18 05:22 Hct 23 % (35-47) L 04/12/18 05:22 Plt Count 192 10^3/ul (150-450) 04/12/18 05:22 MPV 8.1 um3 (7.4-10.4) 04/12/18 05:22 APTT 27.4 seconds (26.0-36.3) 04/10/18 09:09 Sodium 136 mmol/L (135-145) 04/11/18 05:23 Potassium 4.2 mmol/L (3.5-5.0) 04/11/18 05:23 Chloride 103 mmol/L (101-111) 04/11/18 05:23 Carbon Dioxide 27 mmol/L (22-32) 04/11/18 05:23 Anion Gap 6 mmol/L (2-11) 04/11/18 05:23 BUN 20 mg/dL (6-24) 04/11/18 05:23 Creatinine 0.67 mg/dL (0.51-0.95) 04/11/18 05:23 Est GFR ( Amer) 108.3 (>60) 04/11/18 05:23 Est GFR (Non-Af Amer) 89.5 (>60) 04/11/18 05:23 BUN/Creatinine Ratio 29.9 (8-20) H 04/11/18 05:23 Glucose 223 mg/dL (70-100) H 04/11/18 05:23 POC Glucose (mg/dL) 200 mg/dL (70-100) H 04/12/18 08:37 Calcium 8.2 mg/dL (8.6-10.3) L 04/11/18 05:23 Total Bilirubin 0.50 mg/dL (0.2-1.0) 04/10/18 09:09 AST 14 U/L (13-39) 04/10/18 09:09 ALT 12 U/L (7-52) 04/10/18 09:09 Alkaline Phosphatase 91 U/L (34-104) 04/10/18 09:09 Total Protein 6.6 g/dL (6.4-8.9) 04/10/18 09:09 Albumin 3.9 g/dL (3.2-5.2) 04/10/18 09:09 Globulin 2.7 g/dL (2-4) 04/10/18 09:09 Albumin/Globulin Ratio 1.4 (1-3) 04/10/18 09:09 Blood Type B Negative 04/10/18 09:09 Antibody Screen Negative 04/10/18 09:09 Crossmatch See Detail 04/10/18 09:09
[2018-04-12] MEDS: Enoxaparin(*) 40 MG/0.4 ML SYR SUBCUT SCH (13:26)
[2018-04-12] MEDS: Atorvastatin* 20 MG TAB PO SCH (18:11)
[2018-04-13] MEDS: oxyCODONE/Acetamin 5/325 MG* TAB PO PRN ×3 (05:26→20:07)
[2018-04-13 05:42] LABS: Hematocrit 22 % (35-47); Hemoglobin 7.3 g/dl (12.0-16.0)
[2018-04-13] MEDS: Acetaminophen TAB* 325 MG PO SCH ×3 (06:00→20:07)
[2018-04-13] MEDS: Magnesium Hydroxide LIQ* 30 ML UDC PO SCH ×2 (07:43→20:07)
[2018-04-13] MEDS: Docusate CAP* 100 MG PO SCH ×2 (07:43→20:06)
[2018-04-13] MEDS: Insulin LISPRO* 1 UNITS UNIT SUBCUT SCH ×3 (09:02→18:31)
--- NOTE | 2018-04-13 09:05 | PN ---
Progress Note - Progress Note Date of Service: 04/13/18 SOAP: Subjective: Pain decreased. Objective: Comfortable-appearing LLE - dressing c/d/i - NVID Postop xrays showed hardware well placed, bone well aligned Selected Entries 04/13/18 07:18 Temperature 98.4 F Pulse Rate 88 Respiratory 16 Rate Blood Pressure 119/47 (mmHg) O2 Sat by Pulse 96 Oximetry Laboratory Tests 04/11/18 04/11/18 04/12/18 10:43 15:04 05:22 Hct 20 L 22 L 23 L 04/13/18 05:09 Hct 22 L Assessment: POD 3 ORIF distal femoral non-union, removal of hardware, iliac crest bone graft Plan: - NWB LLE. Hold off on ROM until after first postop visit - Knee immobilizer. - Dressing change daily for at least 7 days postop - Transfuse 1u PRBC today - Dispo planning. Patient can then be discharged later today if bed available. - Lovenox 40 daily - Pain control - Follow up with me in clinic at [place] ~ 14 days postop
[2018-04-13] MEDS: Enoxaparin(*) 40 MG/0.4 ML SYR SUBCUT SCH (13:11)
[2018-04-13] MEDS: Atorvastatin* 20 MG TAB PO SCH (16:12)
[2018-04-13] MEDS: oxyCODONE TAB* 5 MG TAB PO PRN ×2 (16:13→23:36)
[2018-04-14 06:05] LABS: Hematocrit 25 % (35-47); Hemoglobin 8.4 g/dl (12.0-16.0)
[2018-04-14] MEDS: Acetaminophen TAB* 325 MG PO SCH ×3 (06:31→22:12)
[2018-04-14] MEDS: oxyCODONE TAB* 5 MG TAB PO PRN ×4 (07:59→21:02)
[2018-04-14] MEDS: Docusate CAP* 100 MG PO SCH ×2 (08:00→22:13)
[2018-04-14] MEDS: Magnesium Hydroxide LIQ* 30 ML UDC PO SCH ×2 (08:01→20:56)
[2018-04-14] MEDS: Insulin LISPRO* 1 UNITS UNIT SUBCUT SCH ×3 (09:49→18:18)
[2018-04-14] MEDS: Enoxaparin(*) 40 MG/0.4 ML SYR SUBCUT SCH (13:10)
[2018-04-14] MEDS: Atorvastatin* 20 MG TAB PO SCH (16:43)
--- NOTE | 2018-04-14 19:35 | PN ---
Progress Note - Progress Note Date of Service: 04/14/18 SOAP: Subjective: Pt sitting comfortably in chair. Minimal complaint of pain. Denies CP, SOB, F/C. Vital Signs: Temp Pulse Resp BP Pulse Ox 98.0 F 77 16 124/48 99 04/14/18 16:07 04/14/18 16:07 04/14/18 16:43 04/14/18 16:07 04/14/18 16:07 Laboratory Last Values Hgb 8.4 g/dl (12.0-16.0) L 04/14/18 05:21 Hct 25 % (35-47) L 04/14/18 05:21 Plt Count 192 10^3/ul (150-450) 04/12/18 05:22 MPV 8.1 um3 (7.4-10.4) 04/12/18 05:22 APTT 27.4 seconds (26.0-36.3) 04/10/18 09:09 Sodium 136 mmol/L (135-145) 04/11/18 05:23 Potassium 4.2 mmol/L (3.5-5.0) 04/11/18 05:23 Chloride 103 mmol/L (101-111) 04/11/18 05:23 Carbon Dioxide 27 mmol/L (22-32) 04/11/18 05:23 Anion Gap 6 mmol/L (2-11) 04/11/18 05:23 BUN 20 mg/dL (6-24) 04/11/18 05:23 Creatinine 0.67 mg/dL (0.51-0.95) 04/11/18 05:23 Est GFR ( Amer) 108.3 (>60) 04/11/18 05:23 Est GFR (Non-Af Amer) 89.5 (>60) 04/11/18 05:23 BUN/Creatinine Ratio 29.9 (8-20) H 04/11/18 05:23 Glucose 223 mg/dL (70-100) H 04/11/18 05:23 POC Glucose (mg/dL) 232 mg/dL (70-100) H 04/14/18 16:44 Calcium 8.2 mg/dL (8.6-10.3) L 04/11/18 05:23 Total Bilirubin 0.50 mg/dL (0.2-1.0) 04/10/18 09:09 AST 14 U/L (13-39) 04/10/18 09:09 ALT 12 U/L (7-52) 04/10/18 09:09 Alkaline Phosphatase 91 U/L (34-104) 04/10/18 09:09 Total Protein 6.6 g/dL (6.4-8.9) 04/10/18 09:09 Albumin 3.9 g/dL (3.2-5.2) 04/10/18 09:09 Globulin 2.7 g/dL (2-4) 04/10/18 09:09 Albumin/Globulin Ratio 1.4 (1-3) 04/10/18 09:09 Blood Type B Negative 04/10/18 09:09 Antibody Screen Negative 04/10/18 09:09 Crossmatch See Detail 04/10/18 09:09 Objective: Dressing C/D/I, Knee immobilizer intact. NVI Assessment: s/p ORIF non-union left distal femur and removal of hardware Plan: OOB, NWB LLE Knee immobilizer Pain control D/c when bed available
[2018-04-15 05:47] LABS: Hematocrit 25 % (35-47); Hemoglobin 8.5 g/dl (12.0-16.0)
[2018-04-15] MEDS: Acetaminophen TAB* 325 MG PO SCH ×3 (05:48→21:31)
[2018-04-15] MEDS: oxyCODONE TAB* 5 MG TAB PO PRN ×5 (05:48→21:31)
[2018-04-15] MEDS: Magnesium Hydroxide LIQ* 30 ML UDC PO SCH ×2 (09:21→21:30)
[2018-04-15] MEDS: Insulin LISPRO* 1 UNITS UNIT SUBCUT SCH ×3 (09:22→17:34)
[2018-04-15] MEDS: Docusate CAP* 100 MG PO SCH ×2 (09:22→21:31)
--- NOTE | 2018-04-15 10:03 | PN ---
Progress Note - Progress Note Date of Service: 04/15/18 SOAP: Subjective: Pt sitting comfortably in chair. Minimal complaint of pain. Denies CP, SOB, F/C. Objective: A&O X3, NAD Dressing C/D/I, Knee immobilizer intact. NVI Vital Signs Temp 98.5 F 04/15/18 00:03 Pulse 78 04/15/18 08:03 Resp 16 04/15/18 09:22 BP 143/51 04/15/18 08:03 Pulse Ox 99 04/15/18 08:03 Intake & Output 04/14/18 04/15/18 04/15/18 18:59 06:59 18:59 Intake Total 1020 1100 Output Total 1300 1050 400 Balance -280 50 -400 Intake: Oral 1020 1100 Output: Urine 1300 1050 400 Other: Estimated Void Medium Medium # Voids 1 1 Assessment: s/p ORIF non-union left distal femur and removal of hardware Plan: H&H continues to improve OOB, NWB LLE Knee immobilizer Pain control D/c when bed available
[2018-04-15] MEDS: Enoxaparin(*) 40 MG/0.4 ML SYR SUBCUT SCH (13:26)
[2018-04-15] MEDS: Atorvastatin* 20 MG TAB PO SCH (17:34)
[2018-04-15] MEDS: Ondansetron INJ* 2 MG/ML VIAL IV PRN (18:20)
[2018-04-16] MEDS: Acetaminophen TAB* 325 MG PO SCH ×3 (05:46→21:50)
[2018-04-16 05:52] LABS: Hematocrit 26 % (35-47); Hemoglobin 8.7 g/dl (12.0-16.0)
[2018-04-16] MEDS: Insulin LISPRO* 1 UNITS UNIT SUBCUT SCH ×3 (08:20→17:52)
[2018-04-16] MEDS: oxyCODONE TAB* 5 MG TAB PO PRN ×4 (08:20→21:49)
[2018-04-16] MEDS: Docusate CAP* 100 MG PO SCH ×2 (08:20→21:49)
[2018-04-16] MEDS: Magnesium Hydroxide LIQ* 30 ML UDC PO SCH ×2 (08:22→21:49)
--- NOTE | 2018-04-16 10:35 | PN ---
Progress Note - Progress Note Date of Service: 04/16/18 SOAP: Subjective: Pt seen and examined at bedside. No complaint of pain. Denies CP, SOB, F/C. Vital Signs: Temp Pulse Resp BP Pulse Ox 97.2 F 75 14 146/54 97 04/16/18 07:08 04/16/18 07:08 04/16/18 08:20 04/16/18 07:08 04/16/18 07:08 Laboratory Last Values Hgb 8.7 g/dl (12.0-16.0) L 04/16/18 05:19 Hct 26 % (35-47) L 04/16/18 05:19 Plt Count 192 10^3/ul (150-450) 04/12/18 05:22 MPV 8.1 um3 (7.4-10.4) 04/12/18 05:22 APTT 27.4 seconds (26.0-36.3) 04/10/18 09:09 Sodium 136 mmol/L (135-145) 04/11/18 05:23 Potassium 4.2 mmol/L (3.5-5.0) 04/11/18 05:23 Chloride 103 mmol/L (101-111) 04/11/18 05:23 Carbon Dioxide 27 mmol/L (22-32) 04/11/18 05:23 Anion Gap 6 mmol/L (2-11) 04/11/18 05:23 BUN 20 mg/dL (6-24) 04/11/18 05:23 Creatinine 0.67 mg/dL (0.51-0.95) 04/11/18 05:23 Est GFR ( Amer) 108.3 (>60) 04/11/18 05:23 Est GFR (Non-Af Amer) 89.5 (>60) 04/11/18 05:23 BUN/Creatinine Ratio 29.9 (8-20) H 04/11/18 05:23 Glucose 223 mg/dL (70-100) H 04/11/18 05:23 POC Glucose (mg/dL) 243 mg/dL (70-100) H 04/16/18 07:51 Calcium 8.2 mg/dL (8.6-10.3) L 04/11/18 05:23 Total Bilirubin 0.50 mg/dL (0.2-1.0) 04/10/18 09:09 AST 14 U/L (13-39) 04/10/18 09:09 ALT 12 U/L (7-52) 04/10/18 09:09 Alkaline Phosphatase 91 U/L (34-104) 04/10/18 09:09 Total Protein 6.6 g/dL (6.4-8.9) 04/10/18 09:09 Albumin 3.9 g/dL (3.2-5.2) 04/10/18 09:09 Globulin 2.7 g/dL (2-4) 04/10/18 09:09 Albumin/Globulin Ratio 1.4 (1-3) 04/10/18 09:09 Blood Type B Negative 04/10/18 09:09 Antibody Screen Negative 04/10/18 09:09 Crossmatch See Detail 04/10/18 09:09 Objective: Dressing c/D/I. No edema. Calves soft, nontender. NVI Assessment: s/p ORIF non-union left distal femur with hardware removal Plan: OOB NWB LLE Pain control Knee immobilizer D/C when bed available
[2018-04-16] MEDS: glipiZIDE TAB.XL* 5 MG PO SCH (13:36)
[2018-04-16] MEDS: Enoxaparin(*) 40 MG/0.4 ML SYR SUBCUT SCH (13:38)
--- NOTE | 2018-04-16 14:45 | PN ---
Subjective Date of Service: 04/16/18 Interval History: C/o pain to left knee, controlled with medications, reports that she vomited last PM. Denies any n/v/d at this time. Denies chest pain or shortness of breath. Family History: Unchanged from Admission Social History: Unchanged from Admission Past Medical History: Unchanged from Admission Objective Active Medications: Acetaminophen (Tylenol Tab*) 975 mg PO Q8HR [facility] Last Admin: 04/16/18 13:36 Dose: 975 mg Atorvastatin Calcium (Lipitor*) 20 mg PO 1700 [facility] Last Admin: 04/15/18 17:34 Dose: 20 mg Bisacodyl (Dulcolax Supp*) 10 mg [place] DAILY PRN PRN Reason: constipation Last Admin: 04/15/18 18:52 Dose: 10 mg Cyclobenzaprine HCl (Flexeril Tab*) 5 mg PO TID PRN PRN Reason: SPASMS Dextrose (D50w Syringe 50 Ml*) 12.5 gm IV PUSH .FOR FS < 60 - SS PRN PRN Reason: FS < 60 Diphenhydramine HCl (Benadryl Iv*) 25 mg IV Q6H PRN PRN Reason: itching Docusate Sodium (Colace Cap*) 100 mg PO BID [facility] Last Admin: 04/16/18 08:20 Dose: 100 mg Enoxaparin Sodium (Lovenox(*)) 40 mg SUBCUT Q24H [facility] Last Admin: 04/16/18 13:38 Dose: 40 mg Glipizide (Glucotrol Xl*) 10 mg PO DAILY WITH MEAL [facility] Last Admin: 04/16/18 13:36 Dose: 10 mg Insulin Human Lispro (Humalog*) 0 - 10 units SUBCUT AC [facility]; Protocol Last Admin: 04/16/18 13:08 Dose: 10 units Lactulose (Lactulose*) 30 ml PO Q6H PRN PRN Reason: constipation Magnesium Hydroxide (Milk Of Magnesia Liq*) 30 ml PO BID [facility] Last Admin: 04/16/18 08:22 Dose: Not Given Magnesium Hydroxide (Milk Of Magnesia Liq*) 30 ml PO Q6H PRN PRN Reason: constipation Metformin HCl (Glucophage*) 1,000 mg PO BID [facility] Morphine Sulfate (Morphine Inj ((Syringe))*) 2 mg IV Q2H PRN PRN Reason: PAIN - SEVERE Ondansetron HCl (Zofran Inj*) 4 mg IV Q6H PRN PRN Reason: nausea Last Admin: 04/15/18 18:20 Dose: 4 mg Oxycodone HCl (Roxycodone Tab*) 10 mg PO Q4H PRN PRN Reason: PAIN - SEVERE Last Admin: 04/16/18 13:09 Dose: 10 mg Oxycodone/Acetaminophen (Percocet 5/325 Tab*) 1 tab PO Q4H PRN PRN Reason: PAIN Oxycodone/Acetaminophen (Percocet 5/325 Tab*) 2 tab PO Q4H PRN PRN Reason: PAIN Last Admin: 04/13/18 20:07 Dose: 2 tab Polyethylene Glycol/Electrolytes (Miralax*) 17 gm PO DAILY PRN PRN Reason: Constipation Vital Signs - 8 hr 04/16/18 04/16/18 04/16/18 07:08 08:00 08:20 Temperature 97.2 F Pulse Rate 75 Respiratory 14 14 14 Rate Blood Pressure 146/54 (mmHg) O2 Sat by Pulse 97 Oximetry 04/16/18 04/16/18 04/16/18 11:16 13:09 13:10 Temperature 97.9 F Pulse Rate 77 Respiratory 16 16 16 Rate Blood Pressure 151/61 (mmHg) O2 Sat by Pulse 100 Oximetry Oxygen Devices in Use Now: None Appearance: appears comfortable, no acute distress Eyes: No Scleral Icterus Ears/Nose/Mouth/Throat: Clear Oropharnyx, Mucous Membranes Moist Neck: NL Appearance and Movements; NL JVP, Trachea Midline Respiratory: Symmetrical Chest Expansion and Respiratory Effort, Clear to Auscultation Cardiovascular: NL Sounds; No Murmurs; No JVD, No Edema Abdominal: NL Sounds; No Tenderness; No Distention Extremities: No Edema, No Clubbing, Cyanosis Skin: No Rash or Ulcers, - - dressing dry and intact to left knee Neurological: Alert and Oriented x 3 Nutrition: Taking PO's Result Diagrams: 04/16/18 05:19 04/11/18 05:23 Microbiology and Other Data: Microbiology 04/10/18 12:50 Anaerobic Culture - Final Wound - Other Fungal Culture - Preliminary No Growth Week 1 04/10/18 12:50 Gram Stain - Final Misc Source (See Comment) - Other Wound Culture - Final No Growth Day 2 Assess/Plan/Problems-Billing Assessment: Ms. Laws is a 62 y.o female with a PMHX of DM, HTN, Osteoarthritis and HLD who presented to [facility] [place] for orthopedic hardware removal from her left femur. - Patient Problems (1) Status post hardware removal Current Visit: Yes Status: Acute Code(s): Z98.890 - OTHER SPECIFIED POSTPROCEDURAL STATES SNOMED Code(s): 016834663 Comment: Managment per orthopedic PT/OT per orthopedics Pain managment per orthopedics (2) Diabetes Current Visit: No Status: Acute Code(s): E11.9 - TYPE 2 DIABETES MELLITUS WITHOUT COMPLICATIONS SNOMED Code(s): 08224553 Comment: Blood glucose 353 today - continue Lispro ss - will add glipizide and metformin - will check BMP (3) HTN (hypertension) Current Visit: No Status: Acute Code(s): I10 - ESSENTIAL (PRIMARY) HYPERTENSION SNOMED Code(s): 17454720 Comment: SBP 151 will restart lisinopril at 20 mg po daily (4) DVT prophylaxis Current Visit: No Status: Acute Code(s): LGB4635 - SNOMED Code(s): 182456227 Comment: Lovenox (5) Full code status Current Visit: No Status: Acute Code(s): Z78.9 - OTHER SPECIFIED HEALTH STATUS SNOMED Code(s): 608862030 Status and Disposition: Discharge per orthopedics
[2018-04-16] MEDS: Atorvastatin* 20 MG TAB PO SCH (16:43)
[2018-04-16] MEDS: Lisinopril TAB* 10 MG PO SCH (16:43)
[2018-04-16] MEDS: Cholecalciferol TAB* 1000 UNITS PO SCH (16:43)
[2018-04-16] MEDS ORDERED: Lisinopril TAB* 10 MG PO SCH (17:00)
[2018-04-16] MEDS: metFORMIN* 1,000 MG TAB PO SCH (18:21)
[2018-04-17] MEDS: Acetaminophen TAB* 325 MG PO SCH ×3 (05:58→21:54)
[2018-04-17] MEDS: oxyCODONE TAB* 5 MG TAB PO PRN (05:59)
[2018-04-17] MEDS: Magnesium Hydroxide LIQ* 30 ML UDC PO SCH ×2 (07:53→21:19)
[2018-04-17] MEDS: Docusate CAP* 100 MG PO SCH ×2 (07:53→21:19)
[2018-04-17] MEDS: Cholecalciferol TAB* 1000 UNITS PO SCH (07:54)
[2018-04-17] MEDS: Insulin LISPRO* 1 UNITS UNIT SUBCUT SCH ×3 (09:17→17:49)
[2018-04-17] MEDS: glipiZIDE TAB.XL* 5 MG PO SCH (09:18)
[2018-04-17] MEDS: Ondansetron INJ* 2 MG/ML VIAL IV PRN (09:19)
[2018-04-17] MEDS: metFORMIN* 1,000 MG TAB PO SCH ×2 (09:19→17:50)
--- NOTE | 2018-04-17 10:46 | PN ---
Progress Note - Progress Note Date of Service: 04/17/18 SOAP: Subjective: []Patient seen at bedside. Her left leg pain is tolerable. She is vomiting this morning and has been constipated with her last BM monday. Denies feeling of fever, chills, CP, SOB, dizziness. Objective: []General: Well appearing, NAD LLE: Dressing CDI without surrounding erythema. DF/PF intact. DP2+, sensation intact distally. Calves supple and nontender without erythema, edema or palpable cords Abd: soft and nontender Assessment: []SP ORIF L femoral non-union Plan: - DSD change every other day ( next 04/18) - Lovenox x 4 weeks - Pain control - Discharge to rehab when bed available, not yet available today - Nursing aware to be aggressive bowel meds - Per medicine decrease lisinopril to 20 mg daily, will d/c on oral hypogylcemics no lispro Vital Signs Temp 97.9 F 04/17/18 08:11 Pulse 76 04/17/18 08:11 Resp 16 04/17/18 08:11 BP 153/58 04/17/18 08:11 Pulse Ox 100 04/17/18 08:11 Intake & Output 04/16/18 04/17/18 04/17/18 18:59 06:59 18:59 Intake Total 1240 1200 Output Total 2100 1650 Balance -860 -450 Intake: Oral 1240 1200 Output: Urine 2100 1650 Other: Estimated Void Medium # Bowel Movements 0 Laboratory Last Values Hgb 8.7 g/dl (12.0-16.0) L 04/16/18 05:19 Hct 26 % (35-47) L 04/16/18 05:19 Plt Count 192 10^3/ul (150-450) 04/12/18 05:22 MPV 8.1 um3 (7.4-10.4) 04/12/18 05:22 APTT 27.4 seconds (26.0-36.3) 04/10/18 09:09 Sodium 134 mmol/L (135-145) L 04/16/18 14:46 Potassium 4.3 mmol/L (3.5-5.0) 04/16/18 14:46 Chloride 96 mmol/L (101-111) L 04/16/18 14:46 Carbon Dioxide 30 mmol/L (22-32) 04/16/18 14:46 Anion Gap 8 mmol/L (2-11) 04/16/18 14:46 BUN 11 mg/dL (6-24) 04/16/18 14:46 Creatinine 0.79 mg/dL (0.51-0.95) 04/16/18 14:46 Est GFR ( Amer) 89.5 (>60) 04/16/18 14:46 Est GFR (Non-Af Amer) 74.0 (>60) 04/16/18 14:46 BUN/Creatinine Ratio 13.9 (8-20) 04/16/18 14:46 Glucose 299 mg/dL (70-100) H 04/16/18 14:46 POC Glucose (mg/dL) 158 mg/dL (70-100) H 04/17/18 07:54 Hemoglobin A1c 7.2 % (4.0-5.6) H 04/16/18 05:19 Calcium 8.8 mg/dL (8.6-10.3) 04/16/18 14:46 Total Bilirubin 0.50 mg/dL (0.2-1.0) 04/10/18 09:09 AST 14 U/L (13-39) 04/10/18 09:09 ALT 12 U/L (7-52) 04/10/18 09:09 Alkaline Phosphatase 91 U/L (34-104) 04/10/18 09:09 Total Protein 6.6 g/dL (6.4-8.9) 04/10/18 09:09 Albumin 3.9 g/dL (3.2-5.2) 04/10/18 09:09 Globulin 2.7 g/dL (2-4) 04/10/18 09:09 Albumin/Globulin Ratio 1.4 (1-3) 04/10/18 09:09 25-OH Vitamin D Total 20.7 ng/mL (20-50) 04/16/18 05:19 Blood Type B Negative 04/10/18 09:09 Antibody Screen Negative 04/10/18 09:09 Crossmatch See Detail 04/10/18 09:09
[2018-04-17] MEDS ORDERED: Insulin LISPRO* 1 UNITS UNIT SUBCUT ONE (14:55)
[2018-04-17] MEDS: Enoxaparin(*) 40 MG/0.4 ML SYR SUBCUT SCH (15:20)
--- NOTE | 2018-04-17 15:59 | PN ---
Subjective Date of Service: 04/17/18 Interval History: Reports large BM today, Denies n/v/d. Denies abd pain. Denies chest pain or shortness of breath. States that she is feeling better. Family History: Unchanged from Admission Social History: Unchanged from Admission Past Medical History: Unchanged from Admission Objective Active Medications: Acetaminophen (Tylenol Tab*) 975 mg PO Q8HR [facility] Last Admin: 04/17/18 15:18 Dose: 975 mg Atorvastatin Calcium (Lipitor*) 20 mg PO 1700 [facility] Last Admin: 04/16/18 16:43 Dose: 20 mg Bisacodyl (Dulcolax Supp*) 10 mg [place] DAILY PRN PRN Reason: constipation Last Admin: 04/15/18 18:52 Dose: 10 mg Cholecalciferol (Vitamin D Tab*) 2,000 units PO DAILY [facility] Last Admin: 04/17/18 07:54 Dose: 2,000 units Cyclobenzaprine HCl (Flexeril Tab*) 5 mg PO TID PRN PRN Reason: SPASMS Dextrose (D50w Syringe 50 Ml*) 12.5 gm IV PUSH .FOR FS < 60 - SS PRN PRN Reason: FS < 60 Diphenhydramine HCl (Benadryl Iv*) 25 mg IV Q6H PRN PRN Reason: itching Docusate Sodium (Colace Cap*) 100 mg PO BID [facility] Last Admin: 04/17/18 07:53 Dose: 100 mg Enoxaparin Sodium (Lovenox(*)) 40 mg SUBCUT Q24H [facility] Last Admin: 04/17/18 15:20 Dose: 40 mg Glipizide (Glucotrol Xl*) 10 mg PO DAILY WITH MEAL [facility] Last Admin: 04/17/18 09:18 Dose: 10 mg Insulin Human Lispro (Humalog*) 0 - 10 units SUBCUT AC [facility]; Protocol Last Admin: 04/17/18 15:18 Dose: Not Given Lactulose (Lactulose*) 30 ml PO Q6H PRN PRN Reason: constipation Last Admin: 04/17/18 09:19 Dose: 30 ml Lisinopril (Prinivil Tab*) 20 mg PO 1700 [facility] Last Admin: 04/16/18 16:43 Dose: 20 mg Magnesium Hydroxide (Milk Of Magnesia Liq*) 30 ml PO BID [facility] Last Admin: 04/17/18 07:53 Dose: 30 ml Magnesium Hydroxide (Milk Of Magnesia Liq*) 30 ml PO Q6H PRN PRN Reason: constipation Metformin HCl (Glucophage*) 1,000 mg PO 0900,1700 [facility] Last Admin: 04/17/18 09:19 Dose: 1,000 mg Morphine Sulfate (Morphine Inj ((Syringe))*) 2 mg IV Q2H PRN PRN Reason: PAIN - SEVERE Ondansetron HCl (Zofran Inj*) 4 mg IV Q6H PRN PRN Reason: nausea Last Admin: 04/17/18 09:19 Dose: 4 mg Oxycodone HCl (Roxycodone Tab*) 10 mg PO Q4H PRN PRN Reason: PAIN - SEVERE Last Admin: 04/17/18 05:59 Dose: 10 mg Oxycodone/Acetaminophen (Percocet 5/325 Tab*) 1 tab PO Q4H PRN PRN Reason: PAIN Oxycodone/Acetaminophen (Percocet 5/325 Tab*) 2 tab PO Q4H PRN PRN Reason: PAIN Last Admin: 04/13/18 20:07 Dose: 2 tab Polyethylene Glycol/Electrolytes (Miralax*) 17 gm PO DAILY PRN PRN Reason: Constipation Last Admin: 04/17/18 10:32 Dose: 17 gm Vital Signs - 8 hr 04/17/18 04/17/18 04/17/18 08:00 08:11 11:35 Temperature 97.9 F 98.1 F Pulse Rate 76 85 Respiratory 16 16 16 Rate Blood Pressure 153/58 153/61 (mmHg) O2 Sat by Pulse 100 100 Oximetry Oxygen Devices in Use Now: None Appearance: appears comfortable sitting in the chair Eyes: No Scleral Icterus Ears/Nose/Mouth/Throat: Clear Oropharnyx, Mucous Membranes Moist Neck: NL Appearance and Movements; NL JVP, Trachea Midline Respiratory: Symmetrical Chest Expansion and Respiratory Effort, Clear to Auscultation Cardiovascular: NL Sounds; No Murmurs; No JVD, No Edema Abdominal: NL Sounds; No Tenderness; No Distention Extremities: No Clubbing, Cyanosis, - - pedal pulses +2 bilat, dressing intact to left knee. Skin: No Rash or Ulcers Neurological: Alert and Oriented x 3 Nutrition: Taking PO's Result Diagrams: 04/16/18 05:19 04/16/18 14:46 Microbiology and Other Data: Microbiology 04/10/18 12:50 Anaerobic Culture - Final Wound - Other Fungal Culture - Preliminary No Growth Week 1 04/10/18 12:50 Gram Stain - Final Misc Source (See Comment) - Other Wound Culture - Final No Growth Day 2 Assess/Plan/Problems-Billing Assessment: Ms. Laws is a 62 y.o female with a PMHX of DM, HTN, Osteoarthritis and HLD who presented to [facility] [place] for orthopedic hardware removal from her left femur. - Patient Problems (1) Status post hardware removal Current Visit: Yes Status: Acute Code(s): Z98.890 - OTHER SPECIFIED POSTPROCEDURAL STATES SNOMED Code(s): 515642050 Comment: Managment per orthopedic PT/OT per orthopedics Pain managment per orthopedics (2) Diabetes Current Visit: No Status: Acute Code(s): E11.9 - TYPE 2 DIABETES MELLITUS WITHOUT COMPLICATIONS SNOMED Code(s): 66673016 Comment: Blood glucose 402 today- will give 1 time dose 15 units lispro fasting blood sugar this AM was 158 - continue Lispro ss - continue glipizide and metformin (3) HTN (hypertension) Current Visit: No Status: Acute Code(s): I10 - ESSENTIAL (PRIMARY) HYPERTENSION SNOMED Code(s): 36442255 Comment: SBP 150's will continue lisinopril at 20mg (4) DVT prophylaxis Current Visit: No Status: Acute Code(s): UWZ8270 - SNOMED Code(s): 677530239 Comment: Lovenox (5) Full code status Current Visit: No Status: Acute Code(s): Z78.9 - OTHER SPECIFIED HEALTH STATUS SNOMED Code(s): 792455650 Status and Disposition: Discharge per orthopedics
[2018-04-17] MEDS: Atorvastatin* 20 MG TAB PO SCH (17:50)
[2018-04-17] MEDS: Lisinopril TAB* 10 MG PO SCH (17:50)
[2018-04-17] MEDS: Cyclobenzaprine TAB* 10 MG PO PRN (21:54)
[2018-04-18] MEDS: Acetaminophen TAB* 325 MG PO SCH ×3 (05:51→21:34)
[2018-04-18] MEDS: Cyclobenzaprine TAB* 10 MG PO PRN ×3 (05:52→21:35)
[2018-04-18] MEDS: Insulin LISPRO* 1 UNITS UNIT SUBCUT SCH ×3 (09:14→17:53)
[2018-04-18] MEDS: Magnesium Hydroxide LIQ* 30 ML UDC PO SCH ×2 (09:15→21:37)
[2018-04-18] MEDS: Cholecalciferol TAB* 1000 UNITS PO SCH (09:16)
[2018-04-18] MEDS: glipiZIDE TAB.XL* 5 MG PO SCH (09:16)
[2018-04-18] MEDS: metFORMIN* 1,000 MG TAB PO SCH ×2 (09:16→17:52)
[2018-04-18] MEDS: Docusate CAP* 100 MG PO SCH ×2 (09:16→21:34)
--- NOTE | 2018-04-18 13:08 | PN ---
Progress Note - Progress Note Date of Service: 04/18/18 SOAP: Subjective: []Patient seen and examined at bedside. She feels well without chest pain, shortness of breath, dizziness, nausea or constipation. She had bowel movements yesterday and today. LLE pain is well controlled Objective: []General: Well appearing, NAD LLE: Dressing changed, incisions CDI without surrounding erythema. DF/PF intact. DP2+, sensation intact distally. Calves supple and nontender without erythema, edema or palpable cords Assessment: []SP ORIF L femoral non-union Plan: - DSD change every other day ( next 04/20) - Lovenox x 4 weeks - Pain control - Discharge to rehab when insurance has approved. Has a bed offer at [facility] - Per medicine decrease lisinopril to 20 mg daily, will d/c on oral hypogylcemics no lispro Vital Signs Temp 98.5 F 04/18/18 11:25 Pulse 88 04/18/18 11:25 Resp 16 04/18/18 11:25 BP 142/59 04/18/18 11:25 Pulse Ox 100 04/18/18 11:25 Intake & Output 04/17/18 04/18/18 04/18/18 18:59 06:59 18:59 Intake Total 650 1760 360 Output Total 1100 3400 1000 Balance -450 -1640 -640 Intake: Oral 650 1760 360 Output: Urine 1100 3400 1000 Other: Date of Last Bowel 04/17/18 04/18/18 Movement # Bowel Movements 1 Estimated Stool Amount Large Medium Laboratory Last Values Hgb 8.7 g/dl (12.0-16.0) L 04/16/18 05:19 Hct 26 % (35-47) L 04/16/18 05:19 Plt Count 192 10^3/ul (150-450) 04/12/18 05:22 MPV 8.1 um3 (7.4-10.4) 04/12/18 05:22 APTT 27.4 seconds (26.0-36.3) 04/10/18 09:09 Sodium 134 mmol/L (135-145) L 04/16/18 14:46 Potassium 4.3 mmol/L (3.5-5.0) 04/16/18 14:46 Chloride 96 mmol/L (101-111) L 04/16/18 14:46 Carbon Dioxide 30 mmol/L (22-32) 04/16/18 14:46 Anion Gap 8 mmol/L (2-11) 04/16/18 14:46 BUN 11 mg/dL (6-24) 04/16/18 14:46 Creatinine 0.79 mg/dL (0.51-0.95) 04/16/18 14:46 Est GFR ( Amer) 89.5 (>60) 04/16/18 14:46 Est GFR (Non-Af Amer) 74.0 (>60) 04/16/18 14:46 BUN/Creatinine Ratio 13.9 (8-20) 04/16/18 14:46 Glucose 402 mg/dL (70-100) H 04/17/18 12:59 POC Glucose (mg/dL) 352 mg/dL (70-100) H 04/18/18 12:02 Hemoglobin A1c 7.2 % (4.0-5.6) H 04/16/18 05:19 Calcium 8.8 mg/dL (8.6-10.3) 04/16/18 14:46 Total Bilirubin 0.50 mg/dL (0.2-1.0) 04/10/18 09:09 AST 14 U/L (13-39) 04/10/18 09:09 ALT 12 U/L (7-52) 04/10/18 09:09 Alkaline Phosphatase 91 U/L (34-104) 04/10/18 09:09 Total Protein 6.6 g/dL (6.4-8.9) 04/10/18 09:09 Albumin 3.9 g/dL (3.2-5.2) 04/10/18 09:09 Globulin 2.7 g/dL (2-4) 04/10/18 09:09 Albumin/Globulin Ratio 1.4 (1-3) 04/10/18 09:09 25-OH Vitamin D Total 20.7 ng/mL (20-50) 04/16/18 05:19 Blood Type B Negative 04/10/18 09:09 Antibody Screen Negative 04/10/18 09:09 Crossmatch See Detail 04/10/18 09:09
[2018-04-18] MEDS: Enoxaparin(*) 40 MG/0.4 ML SYR SUBCUT SCH (13:34)
[2018-04-18] MEDS: Atorvastatin* 20 MG TAB PO SCH (17:52)
[2018-04-18] MEDS: Lisinopril TAB* 10 MG PO SCH (17:52)
[2018-04-18] MEDS ORDERED: amLODIPine TAB* 5 MG PO ONE (18:14)
--- NOTE | 2018-04-18 18:17 | PN ---
Subjective Date of Service: 04/18/18 Interval History: Pt reports she is doing well today. Reports her pain is controlled at this time. She reports her sugars are better controlled today. She reports good appetite. No fever/chills. Family History: Unchanged from Admission Social History: Unchanged from Admission Past Medical History: Unchanged from Admission Objective Active Medications: Acetaminophen (Tylenol Tab*) 975 mg PO Q8HR [facility] Last Admin: 04/18/18 13:46 Dose: 975 mg Atorvastatin Calcium (Lipitor*) 20 mg PO 1700 [facility] Last Admin: 04/18/18 17:52 Dose: 20 mg Bisacodyl (Dulcolax Supp*) 10 mg [place] DAILY PRN PRN Reason: constipation Last Admin: 04/15/18 18:52 Dose: 10 mg Cholecalciferol (Vitamin D Tab*) 2,000 units PO DAILY [facility] Last Admin: 04/18/18 09:16 Dose: 2,000 units Cyclobenzaprine HCl (Flexeril Tab*) 5 mg PO TID PRN PRN Reason: SPASMS Last Admin: 04/18/18 14:13 Dose: 5 mg Dextrose (D50w Syringe 50 Ml*) 12.5 gm IV PUSH .FOR FS < 60 - SS PRN PRN Reason: FS < 60 Diphenhydramine HCl (Benadryl Iv*) 25 mg IV Q6H PRN PRN Reason: itching Docusate Sodium (Colace Cap*) 100 mg PO BID [facility] Last Admin: 04/18/18 09:16 Dose: 100 mg Enoxaparin Sodium (Lovenox(*)) 40 mg SUBCUT Q24H [facility] Last Admin: 04/18/18 13:34 Dose: 40 mg Glipizide (Glucotrol Xl*) 10 mg PO DAILY WITH MEAL [facility] Last Admin: 04/18/18 09:16 Dose: 10 mg Insulin Human Lispro (Humalog*) 0 - 10 units SUBCUT AC [facility]; Protocol Last Admin: 04/18/18 17:53 Dose: 2 units Lactulose (Lactulose*) 30 ml PO Q6H PRN PRN Reason: constipation Last Admin: 04/17/18 09:19 Dose: 30 ml Lisinopril (Prinivil Tab*) 20 mg PO 1700 [facility] Last Admin: 04/18/18 17:52 Dose: 20 mg Magnesium Hydroxide (Milk Of Magnesia Liq*) 30 ml PO BID [facility] Last Admin: 04/18/18 09:15 Dose: Not Given Magnesium Hydroxide (Milk Of Magnesia Liq*) 30 ml PO Q6H PRN PRN Reason: constipation Metformin HCl (Glucophage*) 1,000 mg PO 0900,1700 [facility] Last Admin: 04/18/18 17:52 Dose: 1,000 mg Ondansetron HCl (Zofran Inj*) 4 mg IV Q6H PRN PRN Reason: nausea Last Admin: 04/17/18 09:19 Dose: 4 mg Polyethylene Glycol/Electrolytes (Miralax*) 17 gm PO DAILY PRN PRN Reason: Constipation Last Admin: 04/17/18 10:32 Dose: 17 gm Vital Signs - 8 hr 04/18/18 04/18/18 04/18/18 11:25 14:13 15:49 Temperature 98.5 F 98.7 F Pulse Rate 88 89 Respiratory 16 18 20 Rate Blood Pressure 142/59 144/60 (mmHg) O2 Sat by Pulse 100 100 Oximetry Oxygen Devices in Use Now: None Appearance: 62 yo female sitting up in a chair in NAD, A+O x3 Eyes: No Scleral Icterus, PERRLA Ears/Nose/Mouth/Throat: NL Teeth, Lips, Gums, Mucous Membranes Moist Neck: NL Appearance and Movements; NL JVP Respiratory: Symmetrical Chest Expansion and Respiratory Effort, Clear to Auscultation Cardiovascular: NL Sounds; No Murmurs; No JVD, RRR, No Edema Abdominal: NL Sounds; No Tenderness; No Distention Extremities: No Clubbing, Cyanosis, - - left LE in leg brace -LEs b/l warm and well perfused Skin: No Rash or Ulcers, No Nodules or Sclerosis Neurological: Alert and Oriented x 3, NL Sensation, NL Muscle Strength and Tone Lines/Tubes/Other Access: Clean, Dry and Intact Peripheral IV Nutrition: Taking PO's Result Diagrams: 04/16/18 05:19 04/16/18 14:46 Microbiology and Other Data: Microbiology 04/10/18 12:50 Anaerobic Culture - Final Wound - Other Fungal Culture - Preliminary No Growth Week 1 04/10/18 12:50 Gram Stain - Final Misc Source (See Comment) - Other Wound Culture - Final No Growth Day 2 Assess/Plan/Problems-Billing Assessment: Ms. Laws is a 62 y.o female with a PMHX of DM, HTN, Osteoarthritis and HLD who presented to [facility] [place] for orthopedic hardware removal from her left femur. - Patient Problems (1) Status post hardware removal Comment: Managment per orthopedic PT/OT per orthopedics Pain managment per orthopedics (2) Diabetes Comment: Blood glucose better control today - continue Lispro ss - continue glipizide and metformin (3) HTN (hypertension) Comment: SBP 140-150's will continue lisinopril at 20mg - add norvasc 5 mg daily for better BP control - she should be DC'd on this (4) Mild aortic stenosis Comment: Per echo 08/22/17. (5) DVT prophylaxis SNOMED Code(s): 121979449 Comment: Susan (6) Full code status Status and Disposition: Discharge per orthopedics - tentative DC to [facility] tomorrow
[2018-04-19 05:32] LABS: Hematocrit 28 % (35-47); Hemoglobin 9.2 g/dl (12.0-16.0); Mean Platelet Volume 7.2 um3 (7.4-10.4); Platelet Count 484 10^3/ul (150-450)
[2018-04-19 05:54] LABS: EGFR Non-African American 128.4 (>60)
[2018-04-19] MEDS: Acetaminophen TAB* 325 MG PO SCH ×3 (05:57→21:43)
[2018-04-19] MEDS: Cyclobenzaprine TAB* 10 MG PO PRN ×3 (06:01→21:44)
--- NOTE | 2018-04-19 08:55 | PN ---
Subjective Date of Service: 04/19/18 Interval History: Doing well. Reports good pain control. states she take 40 mg lisinopril. Denies fever/chills. No SOB/CP. Family History: Unchanged from Admission Social History: Unchanged from Admission Past Medical History: Unchanged from Admission Objective Active Medications: Acetaminophen (Tylenol Tab*) 975 mg PO Q8HR [facility] Last Admin: 04/19/18 05:57 Dose: 975 mg Atorvastatin Calcium (Lipitor*) 20 mg PO 1700 [facility] Last Admin: 04/18/18 17:52 Dose: 20 mg Bisacodyl (Dulcolax Supp*) 10 mg [place] DAILY PRN PRN Reason: constipation Last Admin: 04/15/18 18:52 Dose: 10 mg Cholecalciferol (Vitamin D Tab*) 2,000 units PO DAILY [facility] Last Admin: 04/18/18 09:16 Dose: 2,000 units Cyclobenzaprine HCl (Flexeril Tab*) 5 mg PO TID PRN PRN Reason: SPASMS Last Admin: 04/19/18 06:01 Dose: 5 mg Dextrose (D50w Syringe 50 Ml*) 12.5 gm IV PUSH .FOR FS < 60 - SS PRN PRN Reason: FS < 60 Diphenhydramine HCl (Benadryl Iv*) 25 mg IV Q6H PRN PRN Reason: itching Docusate Sodium (Colace Cap*) 100 mg PO BID [facility] Last Admin: 04/18/18 21:34 Dose: 100 mg Enoxaparin Sodium (Lovenox(*)) 40 mg SUBCUT Q24H [facility] Last Admin: 04/18/18 13:34 Dose: 40 mg Glipizide (Glucotrol Xl*) 10 mg PO DAILY WITH MEAL [facility] Last Admin: 04/18/18 09:16 Dose: 10 mg Insulin Human Lispro (Humalog*) 0 - 10 units SUBCUT AC [facility]; Protocol Last Admin: 04/18/18 17:53 Dose: 2 units Lactulose (Lactulose*) 30 ml PO Q6H PRN PRN Reason: constipation Last Admin: 04/17/18 09:19 Dose: 30 ml Lisinopril (Prinivil Tab*) 40 mg PO DAILY [facility] Magnesium Hydroxide (Milk Of Magnesia Liq*) 30 ml PO BID [facility] Last Admin: 04/18/18 21:37 Dose: Not Given Magnesium Hydroxide (Milk Of Magnesia Liq*) 30 ml PO Q6H PRN PRN Reason: constipation Metformin HCl (Glucophage*) 1,000 mg PO 0900,1700 JOSEPH Last Admin: 04/18/18 17:52 Dose: 1,000 mg Ondansetron HCl (Zofran Inj*) 4 mg IV Q6H PRN PRN Reason: nausea Last Admin: 04/17/18 09:19 Dose: 4 mg Polyethylene Glycol/Electrolytes (Miralax*) 17 gm PO DAILY PRN PRN Reason: Constipation Last Admin: 04/17/18 10:32 Dose: 17 gm Vital Signs - 8 hr 04/19/18 04/19/18 04/19/18 01:20 03:29 06:01 Temperature 97.8 F Pulse Rate 80 Respiratory 16 16 Rate Blood Pressure 155/55 (mmHg) O2 Sat by Pulse 97 97 Oximetry 04/19/18 04/19/18 08:19 08:35 Temperature 98.2 F Pulse Rate 81 Respiratory 14 14 Rate Blood Pressure 140/59 (mmHg) O2 Sat by Pulse 91 Oximetry Oxygen Devices in Use Now: None Appearance: A+Ox3 62 yo female sitting up in bed in NAD Eyes: No Scleral Icterus, PERRLA Ears/Nose/Mouth/Throat: NL Teeth, Lips, Gums, Mucous Membranes Moist Neck: NL Appearance and Movements; NL JVP Respiratory: Symmetrical Chest Expansion and Respiratory Effort, Clear to Auscultation Cardiovascular: NL Sounds; No Murmurs; No JVD, RRR, No Edema Abdominal: NL Sounds; No Tenderness; No Distention Extremities: - - RLE leg brace - warm, well perfused. Neurological: Alert and Oriented x 3 Lines/Tubes/Other Access: Clean, Dry and Intact Peripheral IV Nutrition: Taking PO's Result Diagrams: 04/19/18 05:14 04/19/18 05:14 Microbiology and Other Data: Microbiology 04/10/18 12:50 Anaerobic Culture - Final Wound - Other Fungal Culture - Preliminary No Growth Week 1 04/10/18 12:50 Gram Stain - Final Misc Source (See Comment) - Other Wound Culture - Final No Growth Day 2 Assess/Plan/Problems-Billing Assessment: Ms. Laws is a 62 y.o female with a PMHX of DM, HTN, Osteoarthritis and HLD who presented to [facility] for orthopedic hardware removal from her left femur. - Patient Problems (1) Status post hardware removal Comment: Managment per orthopedic PT/OT per orthopedics Pain managment per orthopedics (2) Diabetes Comment: - Blood glucose better control today - continue Lispro ss - continue glipizide and metformin (3) HTN (hypertension) Comment: SBP 140-150's Restart home dose lisinopril 40 mg - please DC on home dose Stop norvasc (4) Mild aortic stenosis Comment: Per echo 08/22/17. (5) DVT prophylaxis Comment: Lovenox (6) Full code status Status and Disposition: Discharge per orthopedics - tentative DC to [facility] for subacute rehab when insurance clears
[2018-04-19] MEDS ORDERED: amLODIPine TAB* 5 MG PO SCH (09:00)
[2018-04-19] MEDS: metFORMIN* 1,000 MG TAB PO SCH ×2 (09:19→17:56)
[2018-04-19] MEDS: Docusate CAP* 100 MG PO SCH ×2 (09:19→20:55)
[2018-04-19] MEDS: Cholecalciferol TAB* 1000 UNITS PO SCH (09:19)
[2018-04-19] MEDS: glipiZIDE TAB.XL* 5 MG PO SCH (09:19)
[2018-04-19] MEDS: Magnesium Hydroxide LIQ* 30 ML UDC PO SCH ×2 (09:19→20:55)
[2018-04-19] MEDS: Insulin LISPRO* 1 UNITS UNIT SUBCUT SCH ×3 (09:19→17:54)
[2018-04-19] MEDS: Lisinopril TAB* 10 MG PO SCH (10:34)
--- NOTE | 2018-04-19 10:56 | PN ---
Progress Note - Progress Note Date of Service: 04/19/18 SOAP: Subjective: []Patient seen at bedside. Her left leg is sore, she has no other complaints. Denies CP, SOB, dizziness, nausea. She has a bed at [facility] pending insurance coverage, case manage is assisting patient with insurance difficulties. Objective: []General: Well appearing, NAD LLE: Dressing CDI without surrounding erythema. DF/PF intact. DP2+, sensation intact distally. Calves supple and nontender without erythema, edema or palpable cords Assessment: []SP ORIF L femoral non-union Plan: - DSD change every other day ( next 04/20) - Lovenox x 4 weeks - Pain control - Has a bed offer at [facility]. Insurance is pending. environmental department manager inquiring if patient can DC today with pending insurance status vs waiting for full approval - Per medicine decrease lisinopril to 20 mg daily, will d/c on oral hypogylcemics no lispro Vital Signs Temp 98.2 F 04/19/18 08:19 Pulse 81 04/19/18 08:19 Resp 16 04/19/18 08:35 BP 140/59 04/19/18 08:19 Pulse Ox 91 04/19/18 08:19 Intake & Output 04/18/18 04/19/18 04/19/18 18:59 06:59 18:59 Intake Total 1000 910 Output Total 1000 1700 Balance 0 -790 Intake: Oral 1000 910 Output: Urine 1000 1700 Other: Date of Last Bowel 04/18/18 Movement Estimated Stool Amount Medium Laboratory Last Values Hgb 9.2 g/dl (12.0-16.0) L 04/19/18 05:14 Hct 28 % (35-47) L 04/19/18 05:14 Plt Count 484 10^3/ul (150-450) H D 04/19/18 05:14 MPV 7.2 um3 (7.4-10.4) L 04/19/18 05:14 APTT 27.4 seconds (26.0-36.3) 04/10/18 09:09 Sodium 134 mmol/L (135-145) L 04/16/18 14:46 Potassium 4.3 mmol/L (3.5-5.0) 04/16/18 14:46 Chloride 96 mmol/L (101-111) L 04/16/18 14:46 Carbon Dioxide 30 mmol/L (22-32) 04/16/18 14:46 Anion Gap 8 mmol/L (2-11) 04/16/18 14:46 BUN 11 mg/dL (6-24) 04/16/18 14:46 Creatinine 0.49 mg/dL (0.51-0.95) L 04/19/18 05:14 Est GFR ( Amer) 155.4 (>60) 04/19/18 05:14 Est GFR (Non-Af Amer) 128.4 (>60) 04/19/18 05:14 BUN/Creatinine Ratio 13.9 (8-20) 04/16/18 14:46 Glucose 402 mg/dL (70-100) H 04/17/18 12:59 POC Glucose (mg/dL) 135 mg/dL (70-100) H 04/18/18 21:42 Hemoglobin A1c 7.2 % (4.0-5.6) H 04/16/18 05:19 Calcium 8.8 mg/dL (8.6-10.3) 04/16/18 14:46 Total Bilirubin 0.50 mg/dL (0.2-1.0) 04/10/18 09:09 AST 14 U/L (13-39) 04/10/18 09:09 ALT 12 U/L (7-52) 04/10/18 09:09 Alkaline Phosphatase 91 U/L (34-104) 04/10/18 09:09 Total Protein 6.6 g/dL (6.4-8.9) 04/10/18 09:09 Albumin 3.9 g/dL (3.2-5.2) 04/10/18 09:09 Globulin 2.7 g/dL (2-4) 04/10/18 09:09 Albumin/Globulin Ratio 1.4 (1-3) 04/10/18 09:09 25-OH Vitamin D Total 20.7 ng/mL (20-50) 04/16/18 05:19 Blood Type B Negative 04/10/18 09:09 Antibody Screen Negative 04/10/18 09:09 Crossmatch See Detail 04/10/18 09:09
[2018-04-19] MEDS: Enoxaparin(*) 40 MG/0.4 ML SYR SUBCUT SCH (14:05)
[2018-04-19] MEDS: Atorvastatin* 20 MG TAB PO SCH (17:56)
[2018-04-20] MEDS: Cyclobenzaprine TAB* 10 MG PO PRN ×3 (06:16→21:57)
[2018-04-20] MEDS: Acetaminophen TAB* 325 MG PO SCH ×3 (06:16→21:56)
--- NOTE | 2018-04-20 07:55 | PN ---
Progress Note - Progress Note Date of Service: 04/20/18 SOAP: Subjective: resting comfortably; pain well controlled Objective: Laboratory Last Values Hgb 9.2 g/dl (12.0-16.0) L 04/19/18 05:14 Hct 28 % (35-47) L 04/19/18 05:14 Plt Count 484 10^3/ul (150-450) H D 04/19/18 05:14 MPV 7.2 um3 (7.4-10.4) L 04/19/18 05:14 APTT 27.4 seconds (26.0-36.3) 04/10/18 09:09 Sodium 134 mmol/L (135-145) L 04/16/18 14:46 Potassium 4.3 mmol/L (3.5-5.0) 04/16/18 14:46 Chloride 96 mmol/L (101-111) L 04/16/18 14:46 Carbon Dioxide 30 mmol/L (22-32) 04/16/18 14:46 Anion Gap 8 mmol/L (2-11) 04/16/18 14:46 BUN 11 mg/dL (6-24) 04/16/18 14:46 Creatinine 0.49 mg/dL (0.51-0.95) L 04/19/18 05:14 Est GFR ( Amer) 155.4 (>60) 04/19/18 05:14 Est GFR (Non-Af Amer) 128.4 (>60) 04/19/18 05:14 BUN/Creatinine Ratio 13.9 (8-20) 04/16/18 14:46 Glucose 402 mg/dL (70-100) H 04/17/18 12:59 POC Glucose (mg/dL) 133 mg/dL (70-100) H 04/20/18 07:31 Hemoglobin A1c 7.2 % (4.0-5.6) H 04/16/18 05:19 Calcium 8.8 mg/dL (8.6-10.3) 04/16/18 14:46 Total Bilirubin 0.50 mg/dL (0.2-1.0) 04/10/18 09:09 AST 14 U/L (13-39) 04/10/18 09:09 ALT 12 U/L (7-52) 04/10/18 09:09 Alkaline Phosphatase 91 U/L (34-104) 04/10/18 09:09 Total Protein 6.6 g/dL (6.4-8.9) 04/10/18 09:09 Albumin 3.9 g/dL (3.2-5.2) 04/10/18 09:09 Globulin 2.7 g/dL (2-4) 04/10/18 09:09 Albumin/Globulin Ratio 1.4 (1-3) 04/10/18 09:09 25-OH Vitamin D Total 20.7 ng/mL (20-50) 04/16/18 05:19 Blood Type B Negative 04/10/18 09:09 Antibody Screen Negative 04/10/18 09:09 Crossmatch See Detail 04/10/18 09:09 Vital Signs Temp Pulse Resp BP Pulse Ox 98.3 F 80 16 149/58 98 04/20/18 06:20 04/20/18 06:20 04/20/18 06:20 04/20/18 06:20 04/20/18 06:20 incision: c/d; dressing changed Assessment: s/p ORIF left femur Plan: 1) PT/OT- NWB LLE 2) continue current pain meds 3) Continue DVT prophylaxis 4) awaiting SNF placement
[2018-04-20] MEDS: Insulin LISPRO* 1 UNITS UNIT SUBCUT SCH ×3 (09:17→18:53)
[2018-04-20] MEDS: glipiZIDE TAB.XL* 5 MG PO SCH (09:18)
[2018-04-20] MEDS: Docusate CAP* 100 MG PO SCH ×2 (09:19→19:56)
[2018-04-20] MEDS: Cholecalciferol TAB* 1000 UNITS PO SCH (09:19)
[2018-04-20] MEDS: Magnesium Hydroxide LIQ* 30 ML UDC PO SCH ×2 (09:20→19:56)
[2018-04-20] MEDS: Lisinopril TAB* 10 MG PO SCH (09:20)
[2018-04-20] MEDS: metFORMIN* 1,000 MG TAB PO SCH ×2 (09:20→18:54)
[2018-04-20] MEDS: Enoxaparin(*) 40 MG/0.4 ML SYR SUBCUT SCH (13:18)
[2018-04-20] MEDS: Atorvastatin* 20 MG TAB PO SCH (18:54)
[2018-04-21] MEDS: Acetaminophen TAB* 325 MG PO SCH ×3 (05:46→22:12)
[2018-04-21] MEDS: Cyclobenzaprine TAB* 10 MG PO PRN ×2 (05:46→22:11)
[2018-04-21] MEDS: Insulin LISPRO* 1 UNITS UNIT SUBCUT SCH ×3 (07:45→17:13)
[2018-04-21] MEDS: Lisinopril TAB* 10 MG PO SCH (08:27)
[2018-04-21] MEDS: glipiZIDE TAB.XL* 5 MG PO SCH (08:28)
[2018-04-21] MEDS: Magnesium Hydroxide LIQ* 30 ML UDC PO SCH ×2 (08:28→21:09)
[2018-04-21] MEDS: Docusate CAP* 100 MG PO SCH ×2 (08:28→21:09)
[2018-04-21] MEDS: Cholecalciferol TAB* 1000 UNITS PO SCH (08:28)
[2018-04-21] MEDS: metFORMIN* 1,000 MG TAB PO SCH ×2 (08:28→17:53)
--- NOTE | 2018-04-21 08:56 | PN ---
Progress Note - Progress Note Date of Service: 04/21/18 SOAP: Subjective: resting comfortably in bed with no complaints Objective: Vital Signs Temp Pulse Resp BP Pulse Ox 98.0 F 80 18 140/62 99 04/21/18 07:48 04/21/18 07:48 04/21/18 08:27 04/21/18 07:48 04/21/18 07:48 Laboratory Last Values Hgb 9.2 g/dl (12.0-16.0) L 04/19/18 05:14 Hct 28 % (35-47) L 04/19/18 05:14 Plt Count 484 10^3/ul (150-450) H D 04/19/18 05:14 MPV 7.2 um3 (7.4-10.4) L 04/19/18 05:14 APTT 27.4 seconds (26.0-36.3) 04/10/18 09:09 Sodium 134 mmol/L (135-145) L 04/16/18 14:46 Potassium 4.3 mmol/L (3.5-5.0) 04/16/18 14:46 Chloride 96 mmol/L (101-111) L 04/16/18 14:46 Carbon Dioxide 30 mmol/L (22-32) 04/16/18 14:46 Anion Gap 8 mmol/L (2-11) 04/16/18 14:46 BUN 11 mg/dL (6-24) 04/16/18 14:46 Creatinine 0.49 mg/dL (0.51-0.95) L 04/19/18 05:14 Est GFR ( Amer) 155.4 (>60) 04/19/18 05:14 Est GFR (Non-Af Amer) 128.4 (>60) 04/19/18 05:14 BUN/Creatinine Ratio 13.9 (8-20) 04/16/18 14:46 Glucose 402 mg/dL (70-100) H 04/17/18 12:59 POC Glucose (mg/dL) 131 mg/dL (70-100) H 04/20/18 20:37 Hemoglobin A1c 7.2 % (4.0-5.6) H 04/16/18 05:19 Calcium 8.8 mg/dL (8.6-10.3) 04/16/18 14:46 Total Bilirubin 0.50 mg/dL (0.2-1.0) 04/10/18 09:09 AST 14 U/L (13-39) 04/10/18 09:09 ALT 12 U/L (7-52) 04/10/18 09:09 Alkaline Phosphatase 91 U/L (34-104) 04/10/18 09:09 Total Protein 6.6 g/dL (6.4-8.9) 04/10/18 09:09 Albumin 3.9 g/dL (3.2-5.2) 04/10/18 09:09 Globulin 2.7 g/dL (2-4) 04/10/18 09:09 Albumin/Globulin Ratio 1.4 (1-3) 04/10/18 09:09 25-OH Vitamin D Total 20.7 ng/mL (20-50) 04/16/18 05:19 Blood Type B Negative 04/10/18 09:09 Antibody Screen Negative 04/10/18 09:09 Crossmatch See Detail 04/10/18 09:09 incision: c/d/i PE:NVI Assessment: [s/p ORIF left femur Plan: 1) PT/OT- NWB LLE 2) continue DVT prophylaxis 3)waiting SNF placement
[2018-04-21] MEDS: Enoxaparin(*) 40 MG/0.4 ML SYR SUBCUT SCH (14:45)
[2018-04-21] MEDS: Atorvastatin* 20 MG TAB PO SCH (17:54)
[2018-04-22] MEDS: Acetaminophen TAB* 325 MG PO SCH ×3 (05:37→22:12)
[2018-04-22] MEDS: Insulin LISPRO* 1 UNITS UNIT SUBCUT SCH ×3 (07:53→17:03)
[2018-04-22] MEDS: glipiZIDE TAB.XL* 5 MG PO SCH (07:53)
[2018-04-22] MEDS: Lisinopril TAB* 10 MG PO SCH (07:53)
[2018-04-22] MEDS: Cholecalciferol TAB* 1000 UNITS PO SCH (07:54)
[2018-04-22] MEDS: Cyclobenzaprine TAB* 10 MG PO PRN (07:54)
[2018-04-22] MEDS: metFORMIN* 1,000 MG TAB PO SCH ×2 (07:54→17:15)
[2018-04-22] MEDS: Docusate CAP* 100 MG PO SCH ×2 (07:54→21:59)
[2018-04-22] MEDS: Magnesium Hydroxide LIQ* 30 ML UDC PO SCH ×2 (07:56→21:59)
--- NOTE | 2018-04-22 08:37 | PN ---
Progress Note - Progress Note Date of Service: 04/22/18 SOAP: Subjective: OOB to chair with no complaints Objective: Vital Signs Temp Pulse Resp BP Pulse Ox 97.7 F 80 18 128/56 97 04/22/18 07:33 04/22/18 07:33 04/22/18 07:33 04/22/18 07:33 04/22/18 07:33 Laboratory Last Values Hgb 9.2 g/dl (12.0-16.0) L 04/19/18 05:14 Hct 28 % (35-47) L 04/19/18 05:14 Plt Count 484 10^3/ul (150-450) H D 04/19/18 05:14 MPV 7.2 um3 (7.4-10.4) L 04/19/18 05:14 APTT 27.4 seconds (26.0-36.3) 04/10/18 09:09 Sodium 134 mmol/L (135-145) L 04/16/18 14:46 Potassium 4.3 mmol/L (3.5-5.0) 04/16/18 14:46 Chloride 96 mmol/L (101-111) L 04/16/18 14:46 Carbon Dioxide 30 mmol/L (22-32) 04/16/18 14:46 Anion Gap 8 mmol/L (2-11) 04/16/18 14:46 BUN 11 mg/dL (6-24) 04/16/18 14:46 Creatinine 0.49 mg/dL (0.51-0.95) L 04/19/18 05:14 Est GFR ( Amer) 155.4 (>60) 04/19/18 05:14 Est GFR (Non-Af Amer) 128.4 (>60) 04/19/18 05:14 BUN/Creatinine Ratio 13.9 (8-20) 04/16/18 14:46 Glucose 402 mg/dL (70-100) H 04/17/18 12:59 POC Glucose (mg/dL) 171 mg/dL (70-100) H 04/22/18 07:46 Hemoglobin A1c 7.2 % (4.0-5.6) H 04/16/18 05:19 Calcium 8.8 mg/dL (8.6-10.3) 04/16/18 14:46 Total Bilirubin 0.50 mg/dL (0.2-1.0) 04/10/18 09:09 AST 14 U/L (13-39) 04/10/18 09:09 ALT 12 U/L (7-52) 04/10/18 09:09 Alkaline Phosphatase 91 U/L (34-104) 04/10/18 09:09 Total Protein 6.6 g/dL (6.4-8.9) 04/10/18 09:09 Albumin 3.9 g/dL (3.2-5.2) 04/10/18 09:09 Globulin 2.7 g/dL (2-4) 04/10/18 09:09 Albumin/Globulin Ratio 1.4 (1-3) 04/10/18 09:09 25-OH Vitamin D Total 20.7 ng/mL (20-50) 04/16/18 05:19 Blood Type B Negative 04/10/18 09:09 Antibody Screen Negative 04/10/18 09:09 Crossmatch See Detail 04/10/18 09:09 incision: c/d; dressing changed PE: NVI Assessment: s/p ORIF left femur fracture Plan: 1) PT/OT- NWB LLE 2) continue DVT prophylaxis 3) awaiting SNF placement; hopefully [place] monday
[2018-04-22] MEDS: Enoxaparin(*) 40 MG/0.4 ML SYR SUBCUT SCH (13:51)
[2018-04-22] MEDS: Atorvastatin* 20 MG TAB PO SCH (17:15)
[2018-04-23] MEDS: Acetaminophen TAB* 325 MG PO SCH ×3 (05:37→22:00)
[2018-04-23] MEDS: glipiZIDE TAB.XL* 5 MG PO SCH (09:11)
[2018-04-23] MEDS: Cholecalciferol TAB* 1000 UNITS PO SCH (09:11)
[2018-04-23] MEDS: Lisinopril TAB* 10 MG PO SCH (09:11)
[2018-04-23] MEDS: Docusate CAP* 100 MG PO SCH ×2 (09:12→20:49)
[2018-04-23] MEDS: metFORMIN* 1,000 MG TAB PO SCH ×2 (09:12→17:38)
[2018-04-23] MEDS: Insulin LISPRO* 1 UNITS UNIT SUBCUT SCH ×3 (09:12→17:38)
[2018-04-23] MEDS: Magnesium Hydroxide LIQ* 30 ML UDC PO SCH ×2 (09:15→20:49)
--- NOTE | 2018-04-23 10:08 | PN ---
Progress Note - Progress Note Date of Service: 04/23/18 SOAP: Subjective: []Patient seen at beside. She is feeling well and has been mobilizing around the floor well. Denies CP, SOB, dizziness, nausea. Dressing last changed yesterday. Objective: []General: Well appearing, NAD LLE: Immobilizer in place. DF/PF intact/ DP2+. Sensation intact distally. CL calves supple and nontender without erythema, edema or palpable cords Assessment: []s/p ORIF left femur fracture Plan: 1) PT/OT- NWB LLE 2) continue DVT prophylaxis 3) awaiting SNF placement; hopefully DC today Vital Signs Temp 98.0 F 04/23/18 07:14 Pulse 81 04/23/18 07:14 Resp 14 04/23/18 08:00 BP 121/55 04/23/18 07:14 Pulse Ox 99 04/23/18 07:14 Intake & Output 04/22/18 04/23/18 04/23/18 18:59 06:59 18:59 Intake Total 880 1500 600 Output Total 1650 800 Balance -770 700 600 Intake: Oral 880 1500 600 Output: Urine 1650 800 Other: Estimated Void Medium Date of Last Bowel 04/23/18 Movement # Bowel Movements 1 2 Estimated Stool Amount Large Large # Voids 1 Laboratory Last Values Hgb 9.2 g/dl (12.0-16.0) L 04/19/18 05:14 Hct 28 % (35-47) L 04/19/18 05:14 Plt Count 484 10^3/ul (150-450) H D 04/19/18 05:14 MPV 7.2 um3 (7.4-10.4) L 04/19/18 05:14 APTT 27.4 seconds (26.0-36.3) 04/10/18 09:09 Sodium 134 mmol/L (135-145) L 04/16/18 14:46 Potassium 4.3 mmol/L (3.5-5.0) 04/16/18 14:46 Chloride 96 mmol/L (101-111) L 04/16/18 14:46 Carbon Dioxide 30 mmol/L (22-32) 04/16/18 14:46 Anion Gap 8 mmol/L (2-11) 04/16/18 14:46 BUN 11 mg/dL (6-24) 04/16/18 14:46 Creatinine 0.49 mg/dL (0.51-0.95) L 04/19/18 05:14 Est GFR ( Amer) 155.4 (>60) 04/19/18 05:14 Est GFR (Non-Af Amer) 128.4 (>60) 04/19/18 05:14 BUN/Creatinine Ratio 13.9 (8-20) 04/16/18 14:46 Glucose 402 mg/dL (70-100) H 04/17/18 12:59 POC Glucose (mg/dL) 144 mg/dL (70-100) H 04/23/18 07:29 Hemoglobin A1c 7.2 % (4.0-5.6) H 04/16/18 05:19 Calcium 8.8 mg/dL (8.6-10.3) 04/16/18 14:46 Total Bilirubin 0.50 mg/dL (0.2-1.0) 04/10/18 09:09 AST 14 U/L (13-39) 04/10/18 09:09 ALT 12 U/L (7-52) 04/10/18 09:09 Alkaline Phosphatase 91 U/L (34-104) 04/10/18 09:09 Total Protein 6.6 g/dL (6.4-8.9) 04/10/18 09:09 Albumin 3.9 g/dL (3.2-5.2) 04/10/18 09:09 Globulin 2.7 g/dL (2-4) 04/10/18 09:09 Albumin/Globulin Ratio 1.4 (1-3) 04/10/18 09:09 25-OH Vitamin D Total 20.7 ng/mL (20-50) 04/16/18 05:19 Blood Type B Negative 04/10/18 09:09 Antibody Screen Negative 04/10/18 09:09 Crossmatch See Detail 04/10/18 09:09
[2018-04-23] MEDS: Enoxaparin(*) 40 MG/0.4 ML SYR SUBCUT SCH (14:08)
[2018-04-23] MEDS: Atorvastatin* 20 MG TAB PO SCH (17:38)
[2018-04-24] MEDS: Acetaminophen TAB* 325 MG PO SCH ×2 (05:50→14:39)
[2018-04-24] MEDS: Insulin LISPRO* 1 UNITS UNIT SUBCUT SCH ×2 (07:34→12:37)
[2018-04-24] MEDS: Magnesium Hydroxide LIQ* 30 ML UDC PO SCH (09:24)
[2018-04-24] MEDS: glipiZIDE TAB.XL* 5 MG PO SCH (09:25)
[2018-04-24] MEDS: metFORMIN* 1,000 MG TAB PO SCH (09:25)
[2018-04-24] MEDS: Cholecalciferol TAB* 1000 UNITS PO SCH (09:25)
[2018-04-24] MEDS: Lisinopril TAB* 10 MG PO SCH (09:25)
[2018-04-24] MEDS: Docusate CAP* 100 MG PO SCH (09:26)
[2018-04-24 11:51] VITALS: BP 139/58
--- NOTE | 2018-04-24 13:13 | PN ---
Progress Note - Progress Note Date of Service: 04/24/18 SOAP: Subjective: []Patient seen at bedside. She feels very well and is ready for DC to [facility]. Denies chest pain, shortness of breath, dizziness, nausea or left leg pain. During her stay diabetes was noted to be poorly controlled with blood sugars regularly in the 200 and 300's and on one occasion as high as 413, but in recent days her sugar control has improved. Objective: [] General: Well appearing, NAD LLE: Immobilizer in place. Dressings changed. Incisions are CDI without erythema or discharge. DF/PF intact/ DP2+. Sensation intact distally. BL calves supple and nontender without erythema, edema or palpable cords Assessment: []s/p ORIF left femur fracture Plan: PT/OT NWB LLE continue DVT prophylaxis with lovenox for another 14 days Follow up with Dr Cerda Monday 04/30 at [facility], saroj to be removed at this time DC today to [facility] Vital Signs Temp 98.5 F 04/24/18 11:20 Pulse 84 04/24/18 11:20 Resp 16 04/24/18 11:20 BP 139/58 04/24/18 11:20 Pulse Ox 100 04/24/18 11:20 Intake & Output 04/23/18 04/24/18 04/24/18 18:59 06:59 18:59 Intake Total 840 1220 240 Output Total 1200 1500 600 Balance -360 -280 -360 Intake: Oral 840 1220 240 Output: Urine 1200 1500 600 Other: Estimated Void Medium Date of Last Bowel 04/23/18 04/23/18 Movement # Bowel Movements 2 1 Estimated Stool Amount Medium Medium # Voids 1 Laboratory Last Values Hgb 9.2 g/dl (12.0-16.0) L 04/19/18 05:14 Hct 28 % (35-47) L 04/19/18 05:14 Plt Count 484 10^3/ul (150-450) H D 04/19/18 05:14 MPV 7.2 um3 (7.4-10.4) L 04/19/18 05:14 APTT 27.4 seconds (26.0-36.3) 04/10/18 09:09 Sodium 134 mmol/L (135-145) L 04/16/18 14:46 Potassium 4.3 mmol/L (3.5-5.0) 04/16/18 14:46 Chloride 96 mmol/L (101-111) L 04/16/18 14:46 Carbon Dioxide 30 mmol/L (22-32) 04/16/18 14:46 Anion Gap 8 mmol/L (2-11) 04/16/18 14:46 BUN 11 mg/dL (6-24) 04/16/18 14:46 Creatinine 0.49 mg/dL (0.51-0.95) L 04/19/18 05:14 Est GFR ( Amer) 155.4 (>60) 04/19/18 05:14 Est GFR (Non-Af Amer) 128.4 (>60) 04/19/18 05:14 BUN/Creatinine Ratio 13.9 (8-20) 04/16/18 14:46 Glucose 402 mg/dL (70-100) H 04/17/18 12:59 POC Glucose (mg/dL) 135 mg/dL (70-100) H 04/24/18 12:33 Hemoglobin A1c 7.2 % (4.0-5.6) H 04/16/18 05:19 Calcium 8.8 mg/dL (8.6-10.3) 04/16/18 14:46 Total Bilirubin 0.50 mg/dL (0.2-1.0) 04/10/18 09:09 AST 14 U/L (13-39) 04/10/18 09:09 ALT 12 U/L (7-52) 04/10/18 09:09 Alkaline Phosphatase 91 U/L (34-104) 04/10/18 09:09 Total Protein 6.6 g/dL (6.4-8.9) 04/10/18 09:09 Albumin 3.9 g/dL (3.2-5.2) 04/10/18 09:09 Globulin 2.7 g/dL (2-4) 04/10/18 09:09 Albumin/Globulin Ratio 1.4 (1-3) 04/10/18 09:09 25-OH Vitamin D Total 20.7 ng/mL (20-50) 04/16/18 05:19 Blood Type B Negative 04/10/18 09:09 Antibody Screen Negative 04/10/18 09:09 Crossmatch See Detail 04/10/18 09:09
[2018-04-24] MEDS: Enoxaparin(*) 40 MG/0.4 ML SYR SUBCUT SCH (14:41)
--- NOTE | 2018-04-24 15:02 | DS ---
DISCHARGE SUMMARY: DATE OF ADMISSION: 04/10/18 DATE OF DISCHARGE: DATE OF OPERATION: 04/10/18 PROVIDER AND SURGEON: Dr. Manuel Cerda.* (DICTATED BY NICOLE GOLD) RIGGING WORKER: NICOLE Benitez PREOPERATIVE DIAGNOSES: 1. Nonunion, left distal femur fracture, displaced, comminuted. 2. Failure and breakage of hardware, left distal femur, lateral locking plate. 3. Status post open reduction and internal fixation left distal femur with a lateral locking plate on 08/23/17. OPERATIVE PROCEDURE: 1. Open reduction internal and fixation treatment of a nonunion of the left distal femur. 2. Left iliac crest bone harvest. 3. Removal of hardware, deep, left femur lateral locking plate and wires. 4. Manipulation of the left knee under anesthesia. HISTORY: Ms. Laws is a 62-year-old woman who fell and underwent an ORIF of a comminuted left distal femur fracture with a lateral locking plate on . The patient also had closed management of the contralateral right ankle stable fracture at that time. Postoperatively, the patient progressed along in her rehabilitation getting strength and range of motion. She returned to work full- time. On 03/28/18, the patient suddenly developed pain at work, which got quite severe and the patient was unable to leave the house to go to work. She presented to the clinic for x-rays, which demonstrated a broken plate as well as at least 1 broken screw most proximally. The patient did not have any evidence by x-ray imaging of fracture healing at the site. On 04/03/18, CT again showed excellently reduced fracture, but no significant healing. Due to nonunion and broken hardware, the patient was booked for removal of hardware, manipulation of knee under anesthesia, and repair of nonunion using iliac crest bone graft. HOSPITAL COURSE: The patient was admitted to [facility] on . She underwent: 1. ORIF treatment of a nonunion of the left distal femur. 2. Left iliac crest bone harvest. 3. Removal of hardware, deep, left femur lateral locking plate and wires. 4. Manipulation of the left knee under anesthesia without complication. She recovered briefly in the PACU and was transferred to the short-stay surgical unit in stable condition. Postop day 1, the patient was appearing in no acute distress, though she was quite pale and her hemoglobin was 6.6. She was transfused with 1 unit of packed red blood cell. Her immobilizer was in place. Dorsiflexion and plantarflexion intact. She was able to wiggle her toes. Sensation intact and capillary refill less than 2 seconds distally. Dressing was taken down in order to evaluate the leg and the iliac crest for any hematoma of which there was no obvious evidence. Postop day 2, the patient was well appearing, in no acute distress. Her hemoglobin and hematocrit improved to 7.7 and 23. The patient's dressing was changed every other day and incisions remained cleaned, dry, and intact with well- approximated wound edges and no discharge from the left lateral thigh incision or the site of the iliac crest bone graft. She was kept on Lovenox 40 mg subcu daily during her stay. She was also seen by the hospitalist service during her stay. Her medical problems include hypertension as well as diabetes. The patient's diabetes was poorly controlled during her stay. There was difficulty keeping her blood sugars within acceptable limits. On 04/17/18, the highest glucose reading during her stay was 413. She did regularly have blood sugars in the 200s and 300s during her stay, though this was vastly improved by discharge, at which time on 04/24/18, her sugars were 135 and 122. On day of discharge, the patient 's vital signs included temperature 98.5, pulse rate 84, respiratory rate 16, oxygen saturation 100, blood pressure 139/59. She was well appearing, in no acute distress. Her dressing was changed. Her incisions on the left lateral thigh as well as over the iliac crest bone graft site were clean, dry, and intact without erythema and well-approximated wound edges without any discharge. The patient is able to produce a straight leg raise. She is able to dorsiflex and plantarflex. Dorsalis pedis pulses 2+. Sensation is intact distally. Calves are supple and nontender without erythema, edema, or palpable cords. She was seen ambulating with her walker, nonweightbearing on the left lower extremity successfully, and the patient feels stable when doing this. She was deemed to be medically and orthopedically stable for discharge home. DISCHARGE MEDICATIONS: Resumed home medications include: 1. Metformin 1000 mg p.o. b.i.d. 2. Lisinopril 40 mg p.o. q.a.m. 3. Lipitor 20 mg p.o. daily. 4. Glipizide 10 mg p.o. daily. 5. Acetaminophen 975 mg p.o. q.8 hours p.r.n. 6. Docusate 100 mg p.o. b.i.d. 7. Lovenox 40 mg subcu q.24 hours times a total of 30 days. The patient has 14 additional days left of this medication. 8. Percocet 5/325 one to two tabs every 4 to 6 hours as needed for pain, max daily dose of 10. 9. Vitamin D 5000 units daily for 3 months. DISCHARGE PLAN: The patient will be nonweightbearing on the left lower extremity. She will have a dry sterile dressing change every other day. Dressing was last changed on 04/24/18. She will be on Lovenox for 4 weeks postop. She has already completed 2 weeks of this treatment. She has 2 additional weeks to complete her postop DVT prophylaxis. She will be on 5000 units of vitamin D every day for 3 months. Wound care: It is okay to shower, this started on postop day 3. She may not bathe, swim, or submerge the wound. Call the orthopedic office for increased drainage, redness, increased pain, or fever. Go to the emergency room with shortness of breath, chest pain, palpitations. Diet: Regular diet. Due to diabetes, the patient is to do the carbohydrate consistent diet. She should continue physical therapy and occupational therapy exercises as shown. She should remain in her immobilizer and be nonweightbearing on the left lower extremity. Follow up with Dr. Cerda on 04/30/18, please call for an appointment. Tignall will be removed at this appointment. Please call our office with any questions at [phone]. NICOLE OGLD [id number]/[facility] #: [id number]
== END 2018-04-24 14:50 | DRG 308 ==
LOC: AA 08:09 → SSU 20:29
PROVIDERS: ADMIT Orthopaedic Surgery; ATTEND Orthopaedic Surgery
PROC: 0QP904Z Removal of Internal Fixation Device from Left Femoral Shaft, Open Approach (ICD-10-PCS; 2018-04-10)
PROC: 0QU307Z Supplement Left Pelvic Bone with Autologous Tissue Substitute, Open Approach (ICD-10-PCS; 2018-04-10)
PROC: 0SSD0ZZ Reposition Left Knee Joint, Open Approach (ICD-10-PCS; 2018-04-10)
PROC: 0QS904Z Reposition Left Femoral Shaft with Internal Fixation Device, Open Approach (ICD-10-PCS; 2018-04-10)
PROC: 30233N1 Transfusion of Nonautologous Red Blood Cells into Peripheral Vein, Percutaneous Approach (ICD-10-PCS; principal; 2018-04-11)
DX: T84.115A Breakdown (mechanical) of internal fixation device of left femur, initial encounter (principal); S72.332A Displaced oblique fracture of shaft of left femur, initial encounter for closed fracture; D62 Acute posthemorrhagic anemia; R11.10 Vomiting, unspecified; K59.00 Constipation, unspecified; Y79.1 Therapeutic (nonsurgical) and rehabilitative orthopedic devices associated with adverse incidents; E78.00 Pure hypercholesterolemia, unspecified; W17.89XA Other fall from one level to another, initial encounter; M67.471 Ganglion, right ankle and foot; E78.2 Mixed hyperlipidemia; K22.70 Barrett's esophagus without dysplasia; I10 Essential (primary) hypertension; I35.0 Nonrheumatic aortic (valve) stenosis; E11.65 Type 2 diabetes mellitus with hyperglycemia; M19.90 Unspecified osteoarthritis, unspecified site; E04.2 Nontoxic multinodular goiter; E66.9 Obesity, unspecified; Z86.010 Personal history of colon polyps; Z68.34 Body mass index [BMI] 34.0-34.9, adult; Z83.3 Family history of diabetes mellitus; Z82.49 Family history of ischemic heart disease and other diseases of the circulatory system; Z80.9 Family history of malignant neoplasm, unspecified; Y92.009 Unspecified place in unspecified non-institutional (private) residence as the place of occurrence of the external cause; Z87.891 Personal history of nicotine dependence; Z72.89 Other problems related to lifestyle; Z79.84 Long term (current) use of oral hypoglycemic drugs
CPT/HCPCS: 36415; 76001; 80048; 80053; 82306; 82565; 82947; 83036; 85014; 85018; 85049; 85730; 86850; 86900; 86901; 86922; 87070; 87073; 87102; 87205; 88300; 88304; 88331; A9270-GY; C1713; C1769; C1776; G8987-GO-CM; G8988-GO-CI; J0690; J1100; J1240; J1650; J1885; J2250; J2405; J2704; J2795; J3010; P9040

== ENCOUNTER 2019-05-16 17:17 | Emergency (ER) | payer OTHER ==
--- OUTSIDE RECORDS SUMMARY | 2019-05-16 17:22 | XMS REPORT | Continuity of Care Document ---
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 Onset: 10/06/2017 of left femur, subsequent encounter for closed fracture with routine healing Type 2 diabetes mellitus Kasia Baker NP Onset: 04/10/2018 Essential hypertension Kasia Baker NP Onset: 04/10/2018 Pure hypercholesterolemia Kasia Baker NP Onset: 04/10/2018 Pain in left lower limb Kasia Baker NP Onset: 04/10/2018 Pain in calf Mallika Rodríguez NP Onset: 04/18/2018 Social History Type Date Description Comments Sex Unknown Tobacco Use Start: Unknown End: Former Cigarette Smoker 1 ppd max; began in Unknown 1 Pack Daily her teens, quit age 47 ETOH Use Denies alcohol use Tobacco Use Start: Unknown End: Patient is a former Unknown smoker Smoking Status Reviewed: 04/16/19 Patient is a former smoker Exercise Exercises sporadically due to leg fx; walks Type/Frequency on occ using a cane Allergies, Adverse Reactions, Alerts Description No Known Drug Allergies Medications Active Medications SIG Qnty Indications Ordering Date Provider Steglatro 1 by mouth every 30tabs E11.9 Jonathan EQuan 01/03/2019 5mg Tablets day Elian Adan Blood Pressure bp machine for 1units I10 Jonathan E. 11/08/2018 Monitor home bp monitoring Elian Adan Digital/Manual Inflate Misc Glipizide ER 1 by mouth every 90tabs Jonathan EQuan 10/15/2018 10mg day Elian Adan Tablets ER 24HR Freestyle Lite Test test 3-4 times per 100units E11.42 Jonathan Gilliam 2018 week or as Elian Adan Strips directed Bone Stimulator Use as directed. Manuel Stephen 05/28/2018 s/p ORIF L femur MD Zaida non-union (04/10/18) Metformin HCL 2 by mouth twice a 360tabs Jonathan E. 500mg day Elian Adan Tablets Atorvastatin Calcium take 1 tablet at 90tabs Jonathan E. bedtime Elian Adan 20mg Tablets Lisinopril Take 1 tablet by 30tabs Jonathan E. 40mg mouth every day Elian Adan Tablets Vitamin D3 Maximum 1 by mouth every Unknown Strength day 5000Unit Capsules History Medications Trulicity inject 0.75mg 2ml E11.42 Jonathan Adan, 11/08/2018 - 0.75mg/0.5ML once a week Elian 01/03/2019 Solution Pen-Inject Immunizations Description No Information Available Vital Signs Date Vital Result Comment 04/16/2019 2:30pm Height 60 inches 5'0" Weight 180.00 lb Heart Rate 78 /min Respiratory Rate 15 /min Pain Level 0 BMI (Body Mass Index) 35.1 kg/m2 02/18/2019 2:49pm Height 60 inches 5'0" Weight 180.00 lb Heart Rate 80 /min BP Systolic Sitting 155 mmHg BP Diastolic Sitting 70 mmHg BMI (Body Mass Index) 35.1 kg/m2 Results Test Date Facility Test Result H/L Range Note Laboratory test 02/18/2019 [facility] In House Hemoglobin A1c 6.9 5-7 finding Comp Metabolic 10/16/2018 [facility] Sodium 139 mmol/L Normal 135-[address] [place] [address] [phone] Potassium 4.3 mmol/L Normal 3.5-5.0 Chloride 104 mmol/L Normal 101-111 Co2 Carbon Dioxide 28 mmol/L Normal 22-32 Anion Gap 7 mmol/L Normal 2-11 Glucose 126 mg/dL High 70-100 Blood Urea Nitrogen 12 mg/dL Normal 6-24 Creatinine 0.56 mg/dL Normal 0.51-0.95 BUN/Creatinine Ratio 21.4 High 8-20 Calcium 9.5 mg/dL Normal 8.6-10.3 Total Protein 6.6 g/dL Normal 6.4-8.9 Albumin 4.1 g/dL Normal 3.2-5.2 Globulin 2.5 g/dL Normal 2-4 Albumin/Globulin Ratio 1.6 Normal 1-3 Total Bilirubin 0.70 mg/dL Normal 0.2-1.0 Alkaline Phosphatase 83 U/L Normal 34-104 Alt 14 U/L Normal 7-52 Ast 13 U/L Normal 13-39 Egfr Non- 109.7 >60 Egfr 132.7 >60 1 Lipid Profile 10/16/2018 [facility] Triglycerides 189 mg/dL 2 (Trig/Chol/HDL) [address] [place] [address] [phone] Cholesterol 164 mg/dL 3 HDL Cholesterol 48.5 mg/dL 4 LDL Cholesterol 78 mg/dL 5 Laboratory test 10/16/2018 [facility] Hemoglobin A1c 8.5 % High 4.0-5.[address] (Glyco HGB) [place] [address] [phone] Hepatitis C 10/16/2018 [facility] HCV Index < 0.[address] [place] [address] [phone] Hepatitis C Antibody Nonreactive Nonreactive Urine Microalbumin 10/15/2018 [facility] Ur Microalbumin 137.[address] (mg/L) [place] [address] [phone] Urine Creatinine 26.44 mg/dL Urine Microalbumin/Creatinine 518.9 High <31 1 Because ethnic data is not always readily available, this report includes an eGFR for both -Americans and non- Americans. The National Kidney Disease Education Program (NKDEP) does not endorse the use of the MDRD equation for patients that are not between the ages of 18 and 70, are , have extremes of body size, muscle mass, or nutritional status, or are non- or non-. According to the National Kidney Foundation, irrespective of diagnosis, the stage of the disease is based on the level of kidney function: Stage Description GFR(mL/min/1.73 m(2)) 1 Kidney damage with normal or decreased GFR 90 2 Kidney damage with mild decrease in GFR 60-89 3 Moderate decrease in GFR 30-59 4 Severe decrease in GFR 15-29 5 Kidney failure <15 (or dialysis) 2 Desirable: <150 Borderline High: 150-199 High: 200-499 Very High: >500 3 Desirable: <200 Borderline High: 200-239 High: >239 4 Low: <40 Desirable: 40-60 High: >60 5 Desirable: <100 Near Optimal: 100-129 Borderline High: 130-159 High: 160-189 Very High: >189 6 Therapeutic target for the treatment of diabetes mellitus patients is <7% HBA1C, and in selective patients <6.0%. Please refer to [place] [employer] diabetic care guidelines for further information. Procedures Date Code Description Status 03/07/2019 62574596 Mammogram Completed 12/21/2018 [id number] Diabetic Foot Exam Completed 12/27/2017 [id number] Mammogram Completed Medical Devices Description No Information Available Encounters Type Date Location Provider Dx Diagnosis Office Visit 01/23/2019 Orthopedic Manuel Stephen S72.352K Displ commnt fx 1:15p Services Of MD Zaida shaft of shoshana lester, C.M.A. subs for clos fx w nonunion Office Visit 01/08/2019 Orthopedic Manuel Stephen S72.352K Displ commnt fx 11:15a Services Of MD Zaida shaft of shoshana lester, C.M.A. subs for clos fx w nonunion Office Visit 01/03/2019 Karen Gilliam E11.9 Type 2 diabetes 3:40p Medicine - Hanny Adan M.D. mellitus without complications I10 Essential (primary) hypertension [facility]illi[facility] E11.42 Type 2 [facility] with M.D. diabetic polyneuropathy I10 Essential (primary) hypertension E78.00 Pure hypercholesterolemia, unspecified [facility] Jonathan Gilliam E11.42 Type 2 diabetes Visit 2:20p [facility] Antionette, mellitus with M.D. diabetic polyneuropathy I10 Essential (primary) hypertension E78.00 Pure hypercholesterolemia, unspecified Z11.59 Encounter for screening for other viral diseases Assessments Date Code Description Provider 04/16/2019 S72.352K Displaced comminuted fracture of shaft of Manuel Cerda MD left femur, subseq 02/18/2019 E11.9 Type 2 diabetes mellitus without Jonathan Adan M.D. complications 02/18/2019 I10 Essential (primary) hypertension Jonathan Adan M.D. 02/18/2019 E78.00 Pure hypercholesterolemia, unspecified Jonathan Adan M.D. 02/18/2019 Z12.31 Encounter for screening mammogram for Jonathan Adan M.D. malignant neoplasm of 02/18/2019 E04.2 Nontoxic multinodular goiter Jonathan Adan M.D. 01/23/2019 S72.352K Displaced comminuted fracture of shaft of Manuel Cerda MD left femur, subseq 01/08/2019 S72.352K Displaced comminuted fracture of shaft of Manuel Cerda MD left femur, subseq 01/03/2019 E11.9 Type 2 diabetes mellitus without Jonathan Adan M.D. complications 01/03/2019 I10 Essential (primary) hypertension Jonathan Adan M.D. 11/08/2018 E11.42 Type 2 diabetes mellitus with diabetic Jonathan Adan M.D. polyneuropathy 11/08/2018 I10 Essential (primary) hypertension Jonathan Adan M.D. 11/08/2018 E78.00 Pure hypercholesterolemia, unspecified Jonathan Adan M.D. 10/15/2018 E11.42 Type 2 diabetes mellitus with diabetic Jonathan Adan M.D. polyneuropathy 10/15/2018 I10 Essential (primary) hypertension Jonathan Adan M.D. 10/15/2018 E78.00 Pure hypercholesterolemia, unspecified Jonathan Adan M.D. 10/15/2018 Z11.59 Encounter for screening for other viral Jonathan Adan M.D. diseases Plan of Treatment Future Appointment(s):08/21/2019 11:40 am - Jonathan Adan M.D. at [facility]83/17/2019 1:00 pm - Manuel Cerda MD at [facility]04/16/2019 - Manuel Cerda, [id number] Displaced comminuted fracture of shaft of left femur, subseqFollow up:Follow up : As needed Functional Status Description No Information Available Mental Status Description No Information Available Referrals Refer to Dr Reason for Referral Status Appt Date Toni Middleton DPM diabetic foot care Closed [address] [place] [address] [phone] [facility] Diabetic, low fat, weight loss Closed 09/19 diet education [address] [place] [address] [address] [place] [address] [phone]
--- NOTE | 2019-05-16 17:54 | UC ---
Upper Extremity HPI - HPI Summary HPI Summary: 64 year old female with h/o HTN present after fall at 4PM this afternoon after tripping in pothole. Witnessed, no head injury, no LOC, no HERRERA. Fell on L side , h/o femur fx in past, however no pain with ambulation. L shoulder with decreased movement due to pain, mild tingling at L fingertips, no decreased strength, otherwise sensation intact. no neck pain. - History of Current Complaint Chief Complaint: UCUpperExtremity Stated Complaint: ARM INJURY Time Seen by Provider: 05/16/19 17:52 Hx Obtained From: Patient, Family/Refractory Bricklayer - friend Hx Last Menstrual Period: na ?: No Onset/Duration: Sudden Onset, Lasting Hours Severity Initially: Moderate Severity Currently: Moderate Pain Intensity: 5 Pain Scale Used: 0-10 Numeric Location Of Pain: Is Discrete @ - L shoulder Character: Aching, Throbbing, Spasmodic Alleviating Factor(s): Rest Associated Signs And Symptoms: Positive: Numbness/Tingling - L hand. Negative: Swelling, Redness, Bruising, Fever, Weakness - Allergies/Home Medications Allergies/Adverse Reactions: Allergies Allergy/AdvReac Type Severity Reaction Status Date / Time No Known Allergies Allergy Verified 05/16/19 17:29 PMH/Surg Hx/FS Hx/Imm Hx Previously Healthy: No - HTN Cardiovascular History: Hypertension - Surgical History Surgical History: Yes Surgery Procedure, Year, and Place: 1979 & 1994 csections x2, [facility], & [facility]. 2000 carpal tunnel x2, [facility]. 08/31/17 LEFT FEMUR ORIF [facility] - Family History Known Family History: Positive: Other - fractures/ osteo, Non-Contributory - Social History Alcohol Use: Rare Alcohol Amount: 1-2 DRINKS/YR Substance Use Type: None Smoking Status (MU): Former Smoker Type: Cigarettes Amount Used/How Often: 1PPD 20 YRS Have You Smoked in the Last Year: No When Did the Patient Quit Smoking/Using Tobacco: 15 years ago 2002 - Immunization History Most Recent Influenza Vaccination: fall 2016 Most Recent Pneumonia Vaccination: never Review of Systems All Other Systems Reviewed And Are Negative: Yes Constitutional: Negative: Fever, Chills, Fatigue Motor: Positive: Negative Musculoskeletal: Positive: Arthralgia, Decreased ROM, Myalgia Is Patient Immunocompromised?: No Physical Exam Triage Information Reviewed: Yes Appearance: Well-Appearing, Well-Nourished, Pain Distress - minimal Vital Signs: Initial Vital Signs Temp 98.9 F 05/16/19 17:31 Pulse 84 05/16/19 17:31 Resp 16 05/16/19 17:31 BP 193/108 05/16/19 17:31 Pulse Ox 99 05/16/19 17:31 Vital Signs Reviewed: Yes Eyes: Positive: Conjunctiva Clear Neck: Positive: Supple, Nontender, No Lymphadenopathy, Other: - full ROM, no spurling. Negative: Nuchal Rigidity, Enlarged Nodes @ Respiratory: Positive: Chest non-tender Musculoskeletal: Positive: Strength Intact - L wrist, fingers, elbow. minimal pain with full extension of elbow, non tender to palpatino throughout elbow joint. NO edema noted. SITLT distal to shoulder L UE. rad/ ulnar pulses 2+ , neg squeeze, cap refill < 2 chemicals distiller strength = b/l, L shoulder - diffuse TTP throughotu glenohumeral joint, minimal pain with infraspin testing, + pain, poor exam with supraspin testing, + AC joint tenderness. no defmorility noted, ROM FF 60, abd 80 Psychological Exam: Normal Skin Exam: Normal Skin: Negative: Rashes Upper Extremity Course/Dx - Course Course Of Treatment: X-ray, calcif tendonitis, no fx. Rotator Cuff Sprain - Ice as needed for pain - Motrin/ Tylenol as needed for pain, swelling - SLing for comfort, to rest arm- Take arm out several times a day, pendulum, gentle range of motion exercises as shown. - Follow up with Dr. Benjamin in 2-3 days if no improvement, call for appt. - Go to ER with increased pain, numbness/ unable to move arm, cold/ blue extremity. - Differential Dx/Diagnosis Differential Diagnosis/HQI/PQRI: Strain, Sprain Provider Diagnosis: Rotator cuff injury Discharge ED - Sign-Out/Discharge Documenting (check all that apply): Patient Departure All imaging exams completed and their final reports reviewed: Yes - Discharge Plan Condition: Good Disposition: HOME Patient Education Materials: Rotator Cuff Injury (ED) Referrals: Jonathan Adan MD [Primary Care Provider] - Additional Instructions: Rotator Cuff Sprain - Ice as needed for pain - Motrin/ Tylenol as needed for pain, swelling - SLing for comfort, to rest arm- Take arm out several times a day, pendulum, gentle range of motion exercises as shown. - Follow up with Dr. Benjamin in 2-3 days if no improvement, call for appt. - Go to ER with increased pain, numbness/ unable to move arm, cold/ blue extremity. - Billing Disposition and Condition Condition: GOOD Disposition: Home
[2019-05-16 18:12] VITALS: BP 179/94
== END 2019-05-16 18:47 | disposition home or self-care (01) ==
LOC: UCEAST 17:17
DX: S46.002A Unspecified injury of muscle(s) and tendon(s) of the rotator cuff of left shoulder, initial encounter (principal); I10 Essential (primary) hypertension; Z87.891 Personal history of nicotine dependence; W01.0XXA Fall on same level from slipping, tripping and stumbling without subsequent striking against object, initial encounter; Y92.9 Unspecified place or not applicable
CPT/HCPCS: 99212; G0463

== ENCOUNTER 2021-10-21 13:01 | Inpatient (IN) ==
[2021-10-21] MEDS ORDERED: Dextrose 50% Syringe 50 ml 25 GM/50 ML SYRINGE IV PUSH PRN (17:58)
[2021-10-21] MEDS ORDERED: Magnesium Hydroxide LIQ 30 ML UDC PO PRN (18:00)
[2021-10-21 19:07] LABS: ABS Basophils 0.1 10^3/ul (0-0.2); ABS Eosinophils 0.1 10^3/ul (0-0.6); ABS Lymphocytes 2.4 10^3/ul (1.0-4.8); ABS Monocytes 0.7 10^3/ul (0-0.8); ABS Neutrophils 7.9 10^3/ul (1.5-7.7); Eosinophil % 1.1 %; Hematocrit 37 % (35-47); Hemoglobin 12.5 g/dL (12.0-16.0); Lymphocyte % 21.1 %; Mean Corpuscular HGB Conc 34 g/dL (31-36); Mean Corpuscular Hemoglobin 30 pg (27-31); Mean Corpuscular Volume 88 fL (80-97); Mean Platelet Volume 8.8 fL (7.4-10.4); Platelet Count 249 10^3/uL (150-450); Red Blood Count 4.21 10^6 /uL (3.70-4.87); Red Cell Distribution Width 14 % (10-15); White Blood Count 11.2 10^3/uL (3.5-10.8)
[2021-10-21 19:55] LABS: Albumin 4.2 g/dL (3.2-5.2); Albumin/Globulin Ratio 1.8 (1-3); Calcium 9.5 mg/dL (8.6-10.3); Globulin 2.3 g/dL (2-4); Magnesium 1.6 mg/dL (1.9-2.7); Total Bilirubin 0.7 mg/dL (0.2-1.0); Total Protein 6.5 g/dL (6.4-8.9)
[2021-10-21] MEDS ORDERED: Heparin 5000 UNITS/ML 1 mL VIAL SUBCUT SCH (22:00)
[2021-10-22] MEDS ORDERED: Magnesium Sulfate 2 gm BAG 2 GM/50 ML BAG IVPB ONE (07:43)
[2021-10-22] MEDS: Acetaminophen IV 1 GM/100ML 100 ML IV PRN ×2 (09:36→15:21)
[2021-10-22] MEDS ORDERED: Vancomycin 1,000 MG VIAL ONE (15:43)
[2021-10-22] MEDS ORDERED: Lidocaine 1% w EPI 1:100,000 MDV 20 ML VIAL ONE (15:43)
[2021-10-22] MEDS ORDERED: ceFAZolin 1 GM ADVAN 1 GM ADDV.VIAL IVPB ONE (16:53)
[2021-10-22] MEDS ORDERED: fentaNYL 100 mcg/2 ml 50 MCG/ML VIAL IV PRN (17:16)
[2021-10-22] MEDS ORDERED: DiMENhydriNATE IV 50 mg/ml 1 ml VIAL IV PUSH PRN (17:16)
[2021-10-22] MEDS ORDERED: Ondansetron 4 mg VIAL 2 MG/ML 2 ml VIAL IV PRN (17:16)
[2021-10-22] MEDS ORDERED: oxyCODONE/Acetamin 5/325 mg TAB PO PRN (17:16)
[2021-10-22] MEDS ORDERED: Naloxone 0.4 mg VIAL 0.4 mg/ml 1 ml VIAL IV PRN (17:16)
[2021-10-22] MEDS ORDERED: Ketamine HCL 50 mg/ml 10 ml VIAL (500 MG) ONE (17:20)
[2021-10-22] MEDS ORDERED: Midazolam 5 mg/5 ml VIAL 1 mg/ml 5 ml VIAL (5 mg) ONE (17:20)
[2021-10-22] MEDS ORDERED: Dexmedetomidine 200 mcg/2 ml 2 ml VIAL (200 mcg) ONE (17:20)
[2021-10-23] MEDS: ceFAZolin 1 GM in Dextrose 1 GM/50 ML BAG IVPB SCH ×3 (01:53→17:53)
[2021-10-23] MEDS: Acetaminophen IV 1 GM/100ML 100 ML IV PRN (03:48)
[2021-10-23 05:41] LABS: ABS Eosinophils 0.1 10^3/ul (0-0.6); ABS Lymphocytes 1.1 10^3/ul (1.0-4.8); ABS Monocytes 0.8 10^3/ul (0-0.8); ABS Neutrophils 8.2 10^3/ul (1.5-7.7); Eosinophil % 0.6 %; Hematocrit 32 % (35-47); Lymphocyte % 10.9 %; Mean Corpuscular HGB Conc 34 g/dL (31-36); Mean Corpuscular Hemoglobin 30 pg (27-31); Mean Corpuscular Volume 88 fL (80-97); Mean Platelet Volume 8.8 fL (7.4-10.4); Platelet Count 210 10^3/uL (150-450); Red Blood Count 3.66 10^6 /uL (3.70-4.87); Red Cell Distribution Width 14 % (10-15); White Blood Count 10.2 10^3/uL (3.5-10.8)
[2021-10-23 06:25] LABS: Albumin 3.6 g/dL (3.2-5.2); Albumin/Globulin Ratio 1.8 (1-3); Calcium 8.4 mg/dL (8.6-10.3); Potassium 3.9 mmol/L (3.5-5.0); Total Bilirubin 0.9 mg/dL (0.2-1.0); Total Protein 5.6 g/dL (6.4-8.9); eGFR CKD-EPI 103.5 (>60)
[2021-10-23 07:15] LABS: Magnesium 1.7 mg/dL (1.9-2.7)
[2021-10-23] MEDS ORDERED: Magnesium Sulfate 2 gm BAG 2 GM/50 ML BAG IVPB ONE (07:17)
[2021-10-23] MEDS: Calcium/Vitamin D TAB 250/125 TAB PO SCH ×2 (09:33→20:33)
[2021-10-23] MEDS ORDERED: Ondansetron ODT 4 mg TAB 4 MG TAB ONE (10:52)
[2021-10-23] MEDS: Enoxaparin 40 MG/0.4 ML SYR SUBCUT SCH (12:58)
[2021-10-23] MEDS: Insulin GLARGINE 100 un/ml 10 ml VIAL SUBCUT SCH (20:34)
[2021-10-24 06:21] LABS: Hematocrit 33 % (35-47); Hemoglobin 11.2 g/dL (12.0-16.0); Mean Corpuscular HGB Conc 34 g/dL (31-36); Mean Corpuscular Hemoglobin 30 pg (27-31); Mean Corpuscular Volume 87 fL (80-97); Mean Platelet Volume 9.1 fL (7.4-10.4); Platelet Count 239 10^3/uL (150-450); Red Blood Count 3.73 10^6 /uL (3.70-4.87); Red Cell Distribution Width 14 % (10-15); White Blood Count 9.8 10^3/uL (3.5-10.8)
[2021-10-24 06:35] LABS: Calcium 8.5 mg/dL (8.6-10.3); Magnesium 1.8 mg/dL (1.9-2.7); Potassium 3.9 mmol/L (3.5-5.0); eGFR CKD-EPI 101.7 (>60)
[2021-10-24] MEDS ORDERED: Magnesium Sulfate IV 1GM/100ML 1 GM/100 ML BAG IV ONE (07:59)
[2021-10-24] MEDS: Enoxaparin 40 MG/0.4 ML SYR SUBCUT SCH (09:05)
[2021-10-24] MEDS: Calcium/Vitamin D TAB 250/125 TAB PO SCH ×2 (09:06→20:55)
[2021-10-24] MEDS: Ondansetron ODT 4 mg TAB 4 MG TAB SL PRN ×2 (15:45→22:08)
[2021-10-24] MEDS: Insulin GLARGINE 100 un/ml 10 ml VIAL SUBCUT SCH (20:56)
[2021-10-25] MEDS: Ondansetron ODT 4 mg TAB 4 MG TAB SL PRN ×3 (03:57→21:27)
[2021-10-25] MEDS: Enoxaparin 40 MG/0.4 ML SYR SUBCUT SCH (09:11)
[2021-10-25] MEDS: Calcium/Vitamin D TAB 250/125 TAB PO SCH ×2 (09:11→21:26)
[2021-10-25] MEDS: Insulin GLARGINE 100 un/ml 10 ml VIAL SUBCUT SCH (21:25)
[2021-10-26] MEDS: Enoxaparin 40 MG/0.4 ML SYR SUBCUT SCH (08:29)
[2021-10-26] MEDS: Calcium/Vitamin D TAB 250/125 TAB PO SCH ×2 (08:29→21:31)
[2021-10-26] MEDS: Ondansetron ODT 4 mg TAB 4 MG TAB SL PRN ×2 (09:50→21:30)
[2021-10-26] MEDS: Insulin GLARGINE 100 un/ml 10 ml VIAL SUBCUT SCH (21:32)
[2021-10-27] MEDS: Calcium/Vitamin D TAB 250/125 TAB PO SCH (09:19)
[2021-10-27] MEDS: Enoxaparin 40 MG/0.4 ML SYR SUBCUT SCH (09:19)
[2021-10-27 11:29] VITALS: BP 123/52
== END 2021-10-27 12:30 | DRG 494 ==
LOC: ED 13:01 → SUATTDRO 19:29 → EDHOLD 19:29 → SSU 19:35
PROVIDERS: ADMIT Nurse Practitioner; ATTEND Internal Medicine

== ENCOUNTER 2021-10-27 12:03 | Inpatient (IN) ==
[2021-10-27] MEDS ORDERED: Dextrose 50% Syringe 50 ml 25 GM/50 ML SYRINGE IV PUSH PRN (14:23)
[2021-10-27] MEDS: Calcium/Vitamin D TAB 250/125 TAB PO SCH (20:51)
[2021-10-27] MEDS: Insulin GLARGINE 100 un/ml 10 ml VIAL SUBCUT SCH (21:33)
[2021-10-28] MEDS: Calcium/Vitamin D TAB 250/125 TAB PO SCH ×2 (08:33→21:03)
[2021-10-28] MEDS: Senna TAB 8.6 mg TAB PO PRN (21:02)
[2021-10-28] MEDS: Insulin GLARGINE 100 un/ml 10 ml VIAL SUBCUT SCH (21:05)
[2021-10-29] MEDS: Enoxaparin 40 MG/0.4 ML SYR SUBCUT SCH (05:33)
[2021-10-29 06:19] LABS: ABS Basophils 0.1 10^3/ul (0-0.2); ABS Eosinophils 0.2 10^3/ul (0-0.6); ABS Lymphocytes 2.7 10^3/ul (1.0-4.8); ABS Monocytes 0.6 10^3/ul (0-0.8); ABS Neutrophils 4.5 10^3/ul (1.5-7.7); Eosinophil % 2.9 %; Hematocrit 29 % (35-47); Hemoglobin 9.9 g/dL (12.0-16.0); Lymphocyte % 33.3 %; Mean Corpuscular HGB Conc 34 g/dL (31-36); Mean Corpuscular Hemoglobin 30 pg (27-31); Mean Corpuscular Volume 87 fL (80-97); Mean Platelet Volume 7.6 fL (7.4-10.4); Platelet Count 344 10^3/uL (150-450); Red Cell Distribution Width 14 % (10-15); White Blood Count 8.2 10^3/uL (3.5-10.8)
[2021-10-29 06:46] LABS: Albumin 3.1 g/dL (3.2-5.2); Albumin/Globulin Ratio 1.2 (1-3); Calcium 8.8 mg/dL (8.6-10.3); Globulin 2.5 g/dL (2-4); Potassium 4.5 mmol/L (3.5-5.0); Total Bilirubin 0.6 mg/dL (0.2-1.0); Total Protein 5.6 g/dL (6.4-8.9)
[2021-10-29] MEDS: Calcium/Vitamin D TAB 250/125 TAB PO SCH ×2 (08:35→20:04)
[2021-10-29 10:36] LABS: Hepatitis C Antibody Negative (Negative)
[2021-10-29] MEDS: Senna TAB 8.6 mg TAB PO PRN (20:03)
[2021-10-29] MEDS: Insulin GLARGINE 100 un/ml 10 ml VIAL SUBCUT SCH (21:14)
[2021-10-30] MEDS: Enoxaparin 40 MG/0.4 ML SYR SUBCUT SCH (04:24)
[2021-10-30 07:00] LABS: ABS Basophils 0.1 10^3/ul (0-0.2); ABS Eosinophils 0.2 10^3/ul (0-0.6); ABS Lymphocytes 2.6 10^3/ul (1.0-4.8); ABS Monocytes 0.6 10^3/ul (0-0.8); Eosinophil % 2.7 %; Hematocrit 29 % (35-47); Lymphocyte % 30.6 %; Mean Corpuscular HGB Conc 34 g/dL (31-36); Mean Corpuscular Hemoglobin 30 pg (27-31); Mean Corpuscular Volume 87 fL (80-97); Mean Platelet Volume 7.6 fL (7.4-10.4); Platelet Count 377 10^3/uL (150-450); Red Blood Count 3.38 10^6 /uL (3.70-4.87); Red Cell Distribution Width 14 % (10-15); White Blood Count 8.5 10^3/uL (3.5-10.8)
[2021-10-30] MEDS: Calcium/Vitamin D TAB 250/125 TAB PO SCH ×2 (07:30→20:53)
[2021-10-30] MEDS: Ondansetron ODT 4 mg TAB 4 MG TAB SL PRN (10:18)
[2021-10-30] MEDS: Insulin GLARGINE 100 un/ml 10 ml VIAL SUBCUT SCH (21:05)
[2021-10-31] MEDS: Enoxaparin 40 MG/0.4 ML SYR SUBCUT SCH (05:37)
[2021-10-31] MEDS: Calcium/Vitamin D TAB 250/125 TAB PO SCH ×2 (09:25→20:56)
[2021-10-31] MEDS: Insulin GLARGINE 100 un/ml 10 ml VIAL SUBCUT SCH (21:02)
[2021-11-01] MEDS: Enoxaparin 40 MG/0.4 ML SYR SUBCUT SCH (05:30)
[2021-11-01] MEDS: Calcium/Vitamin D TAB 250/125 TAB PO SCH ×2 (08:37→21:18)
[2021-11-01] MEDS: Ondansetron ODT 4 mg TAB 4 MG TAB SL PRN (14:22)
[2021-11-01] MEDS: Insulin GLARGINE 100 un/ml 10 ml VIAL SUBCUT SCH (21:32)
[2021-11-02] MEDS: Enoxaparin 40 MG/0.4 ML SYR SUBCUT SCH (06:11)
[2021-11-02] MEDS: Calcium/Vitamin D TAB 250/125 TAB PO SCH ×2 (08:58→20:25)
[2021-11-02] MEDS: Ondansetron ODT 4 mg TAB 4 MG TAB SL PRN (12:05)
[2021-11-02] MEDS: Insulin GLARGINE 100 un/ml 10 ml VIAL SUBCUT SCH (21:48)
[2021-11-03] MEDS: Enoxaparin 40 MG/0.4 ML SYR SUBCUT SCH (06:20)
[2021-11-03] MEDS: Calcium/Vitamin D TAB 250/125 TAB PO SCH ×2 (08:50→21:07)
[2021-11-04] MEDS: Enoxaparin 40 MG/0.4 ML SYR SUBCUT SCH (05:54)
[2021-11-04] MEDS: Calcium/Vitamin D TAB 250/125 TAB PO SCH ×2 (07:20→21:03)
[2021-11-04] MEDS: Ondansetron ODT 4 mg TAB 4 MG TAB SL PRN (10:23)
[2021-11-05] MEDS: Enoxaparin 40 MG/0.4 ML SYR SUBCUT SCH (05:18)
[2021-11-05 06:12] LABS: ABS Basophils 0.1 10^3/ul (0-0.2); ABS Eosinophils 0.3 10^3/ul (0-0.6); ABS Monocytes 0.6 10^3/ul (0-0.8); ABS Neutrophils 4.3 10^3/ul (1.5-7.7); Eosinophil % 3.2 %; Hematocrit 29 % (35-47); Hemoglobin 9.9 g/dL (12.0-16.0); Lymphocyte % 36.4 %; Mean Corpuscular HGB Conc 34 g/dL (31-36); Mean Corpuscular Hemoglobin 30 pg (27-31); Mean Corpuscular Volume 87 fL (80-97); Mean Platelet Volume 7.4 fL (7.4-10.4); Nucleated Red Blood Cells % 0.1; Platelet Count 459 10^3/uL (150-450); Red Blood Count 3.36 10^6 /uL (3.70-4.87); Red Cell Distribution Width 13 % (10-15); White Blood Count 8.1 10^3/uL (3.5-10.8)
[2021-11-05 06:44] LABS: Albumin 3.5 g/dL (3.2-5.2); Albumin/Globulin Ratio 1.5 (1-3); Calcium 9.3 mg/dL (8.6-10.3); Globulin 2.4 g/dL (2-4); Potassium 4.6 mmol/L (3.5-5.0); Total Bilirubin 0.5 mg/dL (0.2-1.0); Total Protein 5.9 g/dL (6.4-8.9); eGFR CKD-EPI 104.5 (>60)
[2021-11-05] MEDS: Calcium/Vitamin D TAB 250/125 TAB PO SCH (08:47)
[2021-11-05 16:13] VITALS: BP 129/66
== END 2021-11-05 16:30 | disposition home or self-care (01) | DRG 561 ==
LOC: PMRU 13:40
PROVIDERS: ADMIT Physical Medicine & Rehabilitation; ATTEND Physical Medicine & Rehabilitation